=== PATIENT | male | born 1940 | race Caucasian/White ===

== ENCOUNTER 2023-03-25 13:57 | Outpatient (RCR) | payer MEDICARE, SELFPAY | END 2023-03-25 23:59 | disposition home or self-care (01) | LOC: RPT 13:57 | PROVIDERS: ATTENDING PHYSICIAN Orthopaedic Surgery; FAMILY PHYSICIAN Internal Medicine | DX: Z47.1 Aftercare following joint replacement surgery (principal); M25.562 Pain in left knee; Z73.6 Limitation of activities due to disability; R26.89 Other abnormalities of gait and mobility; Z96.652 Presence of left artificial knee joint | CPT/HCPCS: 97010; 97110; 97116; 97140; 97162; 97164; 97530 ==

== ENCOUNTER → 2023-03-28 09:00 | Outpatient (REF) | payer MEDICARE, SELFPAY ==
[2023-03-28 10:29] LABS: Blood Urea Nitrogen 30 mg/dl (9-20); Calcium 9.6 mg/dl (8.4-10.2); Carbon Dioxide 24 mmol/L (22-30); Chloride 95 mmol/L (98-107); Glucose 105 mg/dl (70-99); Sodium 127 mmol/L (135-145); eGFR 55.19
== END ==
LOC: REG 09:00
PROVIDERS: ATTENDING PHYSICIAN Nurse Practitioner Family
DX: Z09 Encounter for follow-up examination after completed treatment for conditions other than malignant neoplasm (principal)
CPT/HCPCS: 36415; 80048

== ENCOUNTER 2023-04-22 13:55 | Outpatient (RCR) | payer MEDICARE, SELFPAY | END 2023-04-22 23:59 | disposition home or self-care (01) | LOC: RPT 13:55 | PROVIDERS: ATTENDING PHYSICIAN Orthopaedic Surgery; FAMILY PHYSICIAN Internal Medicine | DX: Z47.1 Aftercare following joint replacement surgery (principal); M25.562 Pain in left knee; Z73.6 Limitation of activities due to disability; R26.89 Other abnormalities of gait and mobility; Z96.652 Presence of left artificial knee joint | CPT/HCPCS: 97010; 97110; 97116; 97530 ==

== ENCOUNTER → 2023-05-09 14:59 | Outpatient (REF) | payer MEDICARE, SELFPAY | LOC: DHCBC HW 14:59 | PROVIDERS: ATTENDING PHYSICIAN Nurse Practitioner; FAMILY PHYSICIAN Internal Medicine | DX: R06.09 Other forms of dyspnea (principal); I25.10 Atherosclerotic heart disease of native coronary artery without angina pectoris; I35.0 Nonrheumatic aortic (valve) stenosis | CPT/HCPCS: 93306 ==

== ENCOUNTER → 2023-05-12 08:25 | Outpatient (REF) | payer MEDICARE, SELFPAY ==
[2023-05-12 10:26] LABS: % Basophils 0.6 % (0-2); % Eosinophils 1.8 % (0-6); % Immature Granulocytes 0.3 % (0-0.5); % Lymphocytes 28.5 % (20.5-51.1); % Neutrophils 59.8 % (42.2-75.2); Absolute Eosinophils 0.1 10^3/uL (0-0.7); Absolute Lymphocytes 1.9 10^3/uL (1.2-3.4); Absolute Monocytes 0.6 10^3/uL (0.1-0.6); Absolute Neutrophils 3.9 10^3/uL (1.4-6.5); Hematocrit 25.5 % (39.0-52.0); Hemoglobin 8.1 g/dL (13.0-18.0); Mean Corp Hgb Conc. 31.8 g/dL (33.0-37.0); Mean Corpuscular Hgb 31.4 pg (27.0-31.0); Mean Corpuscular Volume 98.8 fL (80.0-94.0); Mean Platelet Volume 9.7 fL (7.4-10.4); Nucleated Red Blood Cells % 0 % (-); Platelet Count 210 10^3/uL (130-400); Red Blood Cell Count 2.58 10^6/uL (4.70-6.10); Red Cell Dist. Width 14.2 % (11.5-14.5); White Blood Cell Count 6.5 10^3/uL (4.8-10.8)
[2023-05-12 11:10] LABS: ALT (SGPT) 30 U/L (0-50); AST (SGOT) 30 U/L (17-59); Albumin 3.5 g/dl (3.5-5.0); Alkaline Phosphatase 50 U/L (38-126); Blood Urea Nitrogen 30 mg/dl (9-20); Calcium 8.8 mg/dl (8.4-10.2); Carbon Dioxide 22 mmol/L (22-30); Chloride 105 mmol/L (98-107); Glucose 129 mg/dl (70-99); Potassium 4.8 mmol/L (3.5-5.1); Sodium 132 mmol/L (135-145); Total Bilirubin 0.8 mg/dl (0.2-1.3); Total Protein 5.7 g/dl (6.3-8.2); eGFR 50.49
[2023-05-12 11:12] LABS: NT-proBNP 2770 pg/ml
== END ==
LOC: REG 08:25
PROVIDERS: ATTENDING PHYSICIAN Nurse Practitioner; FAMILY PHYSICIAN Internal Medicine; REFERRING PHYSICIAN Internal Medicine Endocrinology, Diabetes & Metabolism
DX: R06.09 Other forms of dyspnea (principal); I25.10 Atherosclerotic heart disease of native coronary artery without angina pectoris; I35.0 Nonrheumatic aortic (valve) stenosis
CPT/HCPCS: 36415; 80053; 83880; 85025

== ENCOUNTER → 2023-05-21 09:12 | Outpatient (REF) | payer MEDICARE, SELFPAY ==
[2023-05-21 09:58] LABS: % Basophils 0.5 % (0-2); % Immature Granulocytes 0.2 % (0-0.5); % Lymphocytes 32.4 % (20.5-51.1); % Monocytes 7.4 % (1.7-9.3); % Neutrophils 57.5 % (42.2-75.2); Absolute Eosinophils 0.1 10^3/uL (0-0.7); Absolute Lymphocytes 2.1 10^3/uL (1.2-3.4); Absolute Monocytes 0.5 10^3/uL (0.1-0.6); Absolute Neutrophils 3.8 10^3/uL (1.4-6.5); Hematocrit 26.9 % (39.0-52.0); Hemoglobin 8.6 g/dL (13.0-18.0); Mean Corpuscular Hgb 31.9 pg (27.0-31.0); Mean Corpuscular Volume 99.6 fL (80.0-94.0); Mean Platelet Volume 9.6 fL (7.4-10.4); Nucleated Red Blood Cells % 0 % (-); Platelet Count 190 10^3/uL (130-400); Reticulocyte Count 1.3 % (0.4-2.8); White Blood Cell Count 6.5 10^3/uL (4.8-10.8)
[2023-05-21 10:29] LABS: ALT (SGPT) 28 U/L (0-50); AST (SGOT) 30 U/L (17-59); Albumin 3.9 g/dl (3.5-5.0); Alkaline Phosphatase 49 U/L (38-126); Blood Urea Nitrogen 34 mg/dl (9-20); Calcium 9.2 mg/dl (8.4-10.2); Carbon Dioxide 22 mmol/L (22-30); Chloride 105 mmol/L (98-107); Glucose 99 mg/dl (70-99); HDL Cholesterol 47 mg/dl; Iron 69 ug/dl (49-181); LDH 175 U/L (120-246); LDL Cholesterol, Calculated 32 mg/dl; Potassium 5.4 mmol/L (3.5-5.1); Sodium 131 mmol/L (135-145); Total Cholesterol 92 mg/dl (50-199); Triglyceride 68 mg/dl (10-149); Very Low Density Lipoprotein 13 mg/dl (0-30); eGFR 46.48
[2023-05-21 10:40] LABS: Percent Saturation 20 % (20-50); Total Iron Binding Capacity 330 ug/dl (261-462)
[2023-05-21 10:55] LABS: Microalbumin, Random Urine 29.8 mg/dl (0.6-1.7); Microalbumin/creatinine Ratio 376.3 mg/g
[2023-05-21 11:33] LABS: Folate > 20.0 ng/ml (2.76-20); Vitamin B12 819 pg/ml (239-931)
[2023-05-21 12:16] LABS: Glycohemoglobin (HgbA1c) 6.3 % (4.0-5.6)
[2023-05-24 08:35] LABS: Albumin 3.72 g/dL (3.75-5.01); Alpha 1 Globulin 0.33 g/dL (0.19-0.46); Alpha 2 Globulin 0.77 g/dL (0.48-1.05); SPEP IFE Reflex IFE Done; Total Protein-Electrophoresis 6.1 g/dL (6.3-8.2)
[2023-05-24 08:37] LABS: IgA 115 mg/dL (68-408); IgG 594 mg/dL (768-1632); IgM 49 mg/dL (35-263)
== END ==
LOC: REG 09:12
PROVIDERS: ATTENDING PHYSICIAN Internal Medicine; FAMILY PHYSICIAN Internal Medicine Endocrinology, Diabetes & Metabolism; OTHER PHYSICIAN Internal Medicine Hematology & Oncology; REFERRING PHYSICIAN Internal Medicine Cardiovascular Disease
DX: D64.9 Anemia, unspecified (principal); E11.21 Type 2 diabetes mellitus with diabetic nephropathy; E78.2 Mixed hyperlipidemia
CPT/HCPCS: 36415; 80053; 80061; 82043; 82570; 82607; 82728; 82746; 82784; 83036; 83540; 83550; 83615; 84155; 84165; 85025; 85045; 86334

== ENCOUNTER 2023-05-21 14:19 | Outpatient (RCR) | payer MEDICARE, SELFPAY | END 2023-05-21 23:59 | disposition home or self-care (01) | LOC: RPT 14:19 | PROVIDERS: ATTENDING PHYSICIAN Orthopaedic Surgery; FAMILY PHYSICIAN Internal Medicine | DX: Z47.1 Aftercare following joint replacement surgery (principal); M25.562 Pain in left knee; Z73.6 Limitation of activities due to disability; Z96.652 Presence of left artificial knee joint | CPT/HCPCS: 97010; 97110; 97530 ==

== ENCOUNTER 2023-05-30 13:52 | Outpatient (RCR) | payer MEDICARE, SELFPAY | END 2023-06-02 07:32 | disposition home or self-care (01) | LOC: RPT 13:52 | PROVIDERS: ATTENDING PHYSICIAN Orthopaedic Surgery; FAMILY PHYSICIAN Internal Medicine | DX: Z47.1 Aftercare following joint replacement surgery (principal); M25.562 Pain in left knee; Z73.6 Limitation of activities due to disability; R26.89 Other abnormalities of gait and mobility; Z96.652 Presence of left artificial knee joint | CPT/HCPCS: 97110; 97530 ==

== ENCOUNTER → 2023-06-11 09:40 | Outpatient (REF) | payer MEDICARE, SELFPAY ==
[2023-06-11 11:13] LABS: Blood Urea Nitrogen 38 mg/dl (9-20); Calcium 9.7 mg/dl (8.4-10.2); Carbon Dioxide 22 mmol/L (22-30); Chloride 107 mmol/L (98-107); Glucose 92 mg/dl (70-99); Potassium 5.2 mmol/L (3.5-5.1); Sodium 134 mmol/L (135-145); eGFR 46.48
== END ==
LOC: REG 09:40
PROVIDERS: ATTENDING PHYSICIAN Nurse Practitioner Gerontology; FAMILY PHYSICIAN Internal Medicine
DX: R06.09 Other forms of dyspnea (principal)
CPT/HCPCS: 36415; 80048

== ENCOUNTER 2023-06-19 12:56 | Outpatient (RCR) | payer MEDICARE, SELFPAY ==
[2023-06-13] MEDS: VENOFER 110 MG IV (14:10)
[2023-06-13 14:12] VITALS: BP 118/43
[2023-06-13 15:25] VITALS: BP 117/58
[2023-06-19] MEDS: VENOFER 110 MG IV (13:29)
[2023-06-19 13:37] VITALS: BP 119/56
[2023-06-19 14:30] VITALS: BP 126/58
== END 2023-06-23 15:58 | disposition home or self-care (01) ==
LOC: OID 12:56
PROVIDERS: ATTENDING PHYSICIAN Internal Medicine
DX: N18.31 Chronic kidney disease, stage 3a (principal); D63.1 Anemia in chronic kidney disease; E11.21 Type 2 diabetes mellitus with diabetic nephropathy
CPT/HCPCS: 96365; J1756

== ENCOUNTER → 2023-06-25 09:40 | Outpatient (REF) | payer MEDICARE, SELFPAY ==
[2023-06-25 11:05] LABS: Glycohemoglobin (HgbA1c) 6.5 % (4.0-5.6)
[2023-06-25 13:37] LABS: ALT (SGPT) 43 U/L (0-50); AST (SGOT) 39 U/L (17-59); Alkaline Phosphatase 53 U/L (38-126); Blood Urea Nitrogen 27 mg/dl (9-20); Calcium 9.3 mg/dl (8.4-10.2); Carbon Dioxide 23 mmol/L (22-30); Chloride 104 mmol/L (98-107); Glucose 88 mg/dl (70-99); Potassium 5.2 mmol/L (3.5-5.1); Sodium 132 mmol/L (135-145); Total Bilirubin 0.9 mg/dl (0.2-1.3); Total Protein 6.2 g/dl (6.3-8.2); eGFR 43.02
== END ==
LOC: REG 09:40
PROVIDERS: ATTENDING PHYSICIAN Internal Medicine Endocrinology, Diabetes & Metabolism; FAMILY PHYSICIAN Internal Medicine
DX: E11.9 Type 2 diabetes mellitus without complications (principal)
CPT/HCPCS: 36415; 80053; 83036

== ENCOUNTER 2023-07-10 12:54 | Outpatient (RCR) | payer MEDICARE, SELFPAY ==
[2023-06-26 13:50] VITALS: BP 122/53
[2023-06-26] MEDS: VENOFER 110 MG IV (14:20)
[2023-06-26 15:40] VITALS: BP 117/49
[2023-07-03] MEDS: VENOFER 110 MG IV (13:29)
[2023-07-03 13:33] VITALS: BP 124/56
[2023-07-03 14:40] VITALS: BP 132/52
[2023-07-10 13:21] VITALS: BP 109/52
[2023-07-10] MEDS: VENOFER 110 MG IV (13:29)
[2023-07-10 14:42] VITALS: BP 132/59
== END 2023-07-11 10:14 | disposition home or self-care (01) ==
LOC: OID 12:54
PROVIDERS: ATTENDING PHYSICIAN Internal Medicine
DX: N18.31 Chronic kidney disease, stage 3a (principal); D63.1 Anemia in chronic kidney disease; E11.21 Type 2 diabetes mellitus with diabetic nephropathy
CPT/HCPCS: 96365; J1756

== ENCOUNTER → 2023-07-28 15:31 | Outpatient (REF) | payer MEDICARE, SELFPAY ==
[2023-07-28 16:18] LABS: % Basophils 0.5 % (0-2); % Eosinophils 2.3 % (0-6); % Immature Granulocytes 0.4 % (0-0.5); % Lymphocytes 31.6 % (20.5-51.1); % Neutrophils 56.2 % (42.2-75.2); Absolute Eosinophils 0.2 10^3/uL (0-0.7); Absolute Lymphocytes 2.4 10^3/uL (1.2-3.4); Absolute Monocytes 0.7 10^3/uL (0.1-0.6); Absolute Neutrophils 4.2 10^3/uL (1.4-6.5); Hematocrit 27.8 % (39.0-52.0); Hemoglobin 9.1 g/dL (13.0-18.0); Mean Corp Hgb Conc. 32.7 g/dL (33.0-37.0); Mean Corpuscular Hgb 32.5 pg (27.0-31.0); Mean Corpuscular Volume 99.3 fL (80.0-94.0); Mean Platelet Volume 9.5 fL (7.4-10.4); Nucleated Red Blood Cells % 0 % (-); Platelet Count 180 10^3/uL (130-400); Red Cell Dist. Width 13.6 % (11.5-14.5); White Blood Cell Count 7.4 10^3/uL (4.8-10.8)
[2023-07-28 16:43] LABS: Blood Urea Nitrogen 43 mg/dl (9-20); Calcium 9.2 mg/dl (8.4-10.2); Carbon Dioxide 23 mmol/L (22-30); Chloride 104 mmol/L (98-107); Glucose 109 mg/dl (70-99); Phosphorus 4.8 mg/dl (2.5-4.5); Potassium 4.9 mmol/L (3.5-5.1); Sodium 137 mmol/L (135-145); eGFR 39.75
== END ==
LOC: REG 15:31
PROVIDERS: ATTENDING PHYSICIAN Internal Medicine Cardiovascular Disease; FAMILY PHYSICIAN Internal Medicine; OTHER PHYSICIAN Specialist; REFERRING PHYSICIAN Internal Medicine Endocrinology, Diabetes & Metabolism
DX: D64.9 Anemia, unspecified (principal); I50.30 Unspecified diastolic (congestive) heart failure
CPT/HCPCS: 36415; 80069; 85025

== ENCOUNTER → 2023-08-26 11:35 | Outpatient (REF) | payer MEDICARE, SELFPAY ==
[2023-08-26 14:15] LABS: Albumin 4.1 g/dl (3.5-5.0); Blood Urea Nitrogen 43 mg/dl (9-20); Calcium 9.3 mg/dl (8.4-10.2); Carbon Dioxide 25 mmol/L (22-30); Chloride 102 mmol/L (98-107); Glucose 93 mg/dl (70-99); Phosphorus 4.9 mg/dl (2.5-4.5); Potassium 5.3 mmol/L (3.5-5.1); Sodium 134 mmol/L (135-145); eGFR 34.79
== END ==
LOC: REG 11:35
PROVIDERS: ATTENDING PHYSICIAN Internal Medicine Cardiovascular Disease; FAMILY PHYSICIAN Internal Medicine; OTHER PHYSICIAN Specialist; REFERRING PHYSICIAN Nurse Practitioner Gerontology
DX: I50.32 Chronic diastolic (congestive) heart failure (principal); I50.30 Unspecified diastolic (congestive) heart failure
CPT/HCPCS: 36415; 80069

== ENCOUNTER → 2024-01-02 10:36 | Outpatient (REF) | payer MEDICARE, SELFPAY ==
[2024-01-02 12:38] LABS: Glycohemoglobin (HgbA1c) 6.1 % (4.0-5.6)
[2024-01-02 12:46] LABS: ALT (SGPT) 33 U/L (0-50); AST (SGOT) 33 U/L (17-59); Albumin 3.8 g/dl (3.5-5.0); Alkaline Phosphatase 39 U/L (38-126); Blood Urea Nitrogen 36 mg/dl (9-20); Calcium 9.7 mg/dl (8.4-10.2); Carbon Dioxide 24 mmol/L (22-30); Chloride 106 mmol/L (98-107); Glucose 104 mg/dl (70-99); HDL Cholesterol 44 mg/dl; Iron 101 ug/dl (49-181); LDL Cholesterol, Calculated 44 mg/dl; Phosphorus 4.4 mg/dl (2.5-4.5); Potassium 5.3 mmol/L (3.5-5.1); Sodium 140 mmol/L (135-145); Total Cholesterol 107 mg/dl (50-199); Triglyceride 96 mg/dl (10-149); Very Low Density Lipoprotein 19 mg/dl (0-30); eGFR 42.75
[2024-01-02 12:48] LABS: % Basophils 0.3 % (0-2); % Immature Granulocytes 0.3 % (0-0.5); % Lymphocytes 31.4 % (20.5-51.1); % Monocytes 8.2 % (1.7-9.3); % Neutrophils 57.8 % (42.2-75.2); Absolute Eosinophils 0.1 10^3/uL (0-0.7); Absolute Lymphocytes 1.9 10^3/uL (1.2-3.4); Absolute Monocytes 0.5 10^3/uL (0.1-0.6); Absolute Neutrophils 3.4 10^3/uL (1.4-6.5); Hematocrit 28.5 % (39.0-52.0); Hemoglobin 9.6 g/dL (13.0-18.0); Mean Corp Hgb Conc. 33.7 g/dL (33.0-37.0); Mean Corpuscular Hgb 34.2 pg (27.0-31.0); Mean Corpuscular Volume 101.4 fL (80.0-94.0); Mean Platelet Volume 9.4 fL (7.4-10.4); Nucleated Red Blood Cells % 0 % (-); Platelet Count 178 10^3/uL (130-400); Red Blood Cell Count 2.81 10^6/uL (4.70-6.10); Red Cell Dist. Width 12.2 % (11.5-14.5)
[2024-01-02 12:57] LABS: Percent Saturation 34 % (20-50); Total Iron Binding Capacity 290 ug/dl (261-462)
[2024-01-02 13:57] LABS: Microalbumin, Random Urine 8.3 mg/dl (0.6-1.7); Microalbumin/creatinine Ratio 147.4 mg/g
== END ==
LOC: REG 10:36
PROVIDERS: ATTENDING PHYSICIAN Internal Medicine Cardiovascular Disease; FAMILY PHYSICIAN Internal Medicine; OTHER PHYSICIAN Internal Medicine Endocrinology, Diabetes & Metabolism; OTHER PHYSICIAN Specialist
DX: E87.5 Hyperkalemia (principal); E11.9 Type 2 diabetes mellitus without complications; E11.21 Type 2 diabetes mellitus with diabetic nephropathy; I11.0 Hypertensive heart disease with heart failure; E78.2 Mixed hyperlipidemia; D63.1 Anemia in chronic kidney disease
CPT/HCPCS: 36415; 80053; 80061; 82043; 82570; 82728; 83036; 83540; 83550; 84100; 85025

== ENCOUNTER 2024-03-10 06:17 | Day surgery (SDC) | payer MEDICARE, SELFPAY ==
[2024-03-10 08:02] LABS: Glucose - Point of Care 143 mg/dl (70-99)
== END 2024-03-10 09:54 | disposition home or self-care (01) ==
LOC: GI 06:17
PROVIDERS: ATTENDING PHYSICIAN Internal Medicine Gastroenterology; FAMILY PHYSICIAN Internal Medicine
DX: D50.9 Iron deficiency anemia, unspecified (principal); K64.8 Other hemorrhoids; K57.30 Diverticulosis of large intestine without perforation or abscess without bleeding; D12.2 Benign neoplasm of ascending colon; D12.3 Benign neoplasm of transverse colon; K22.89 Other specified disease of esophagus; R12 Heartburn; K31.89 Other diseases of stomach and duodenum; Z86.0100 Personal history of colon polyps, unspecified
CPT/HCPCS: 45380; 43239; 88305; 82962; 88342

== ENCOUNTER → 2024-03-22 09:00 | Outpatient (REF) | payer MEDICARE, SELFPAY ==
[2024-03-22 09:41] LABS: % Basophils 0.4 % (0-2); % Eosinophils 1.6 % (0-6); % Immature Granulocytes 0.3 % (0-0.5); % Lymphocytes 29.8 % (20.5-51.1); % Monocytes 6.9 % (1.7-9.3); Absolute Eosinophils 0.1 10^3/uL (0-0.7); Absolute Lymphocytes 2.3 10^3/uL (1.2-3.4); Absolute Monocytes 0.5 10^3/uL (0.1-0.6); Absolute Neutrophils 4.6 10^3/uL (1.4-6.5); Hemoglobin 9.8 g/dL (13.0-18.0); Mean Corp Hgb Conc. 33.8 g/dL (33.0-37.0); Mean Corpuscular Hgb 33.6 pg (27.0-31.0); Mean Corpuscular Volume 99.3 fL (80.0-94.0); Mean Platelet Volume 9.1 fL (7.4-10.4); Nucleated Red Blood Cells % 0 % (-); Platelet Count 196 10^3/uL (130-400); Red Blood Cell Count 2.92 10^6/uL (4.70-6.10); Red Cell Dist. Width 12.2 % (11.5-14.5); Reticulocyte Count 1.4 % (0.4-2.8); White Blood Cell Count 7.6 10^3/uL (4.8-10.8)
[2024-03-22 09:57] LABS: Urine Albumin Trace (Neg - Trace); Urine Bilirubin Negative (Negative); Urine Character Clear (Clear); Urine Color Yellow; Urine Glucose 3+ (Negative); Urine Ketone Negative (Negative); Urine Leukocyte Negative (Negative); Urine Nitrite Negative (Negative); Urine Occult Blood Negative (Negative); Urine Specific Gravity 1.015 (<1.030); Urine Urobilinogen Negative (Neg - 1+)
[2024-03-22 10:25] LABS: ALT (SGPT) 36 U/L (0-50); AST (SGOT) 33 U/L (17-59); Albumin 4.1 g/dl (3.5-5.0); Alkaline Phosphatase 47 U/L (38-126); Blood Urea Nitrogen 44 mg/dl (9-20); Calcium 9.1 mg/dl (8.4-10.2); Carbon Dioxide 26 mmol/L (22-30); Chloride 102 mmol/L (98-107); Glucose 117 mg/dl (70-99); HDL Cholesterol 43 mg/dl; LDL Cholesterol, Calculated 51 mg/dl; Phosphorus 4.6 mg/dl (2.5-4.5); Potassium 5.2 mmol/L (3.5-5.1); Sodium 137 mmol/L (135-145); Total Bilirubin 0.7 mg/dl (0.2-1.3); Total Cholesterol 115 mg/dl (50-199); Total Protein 6.3 g/dl (6.3-8.2); Triglyceride 106 mg/dl (10-149); Very Low Density Lipoprotein 21 mg/dl (0-30); eGFR 32.71
[2024-03-22 10:30] LABS: Vitamin D, 25-OH*** 60.2 ng/mL (30-80)
[2024-03-22 10:41] LABS: Microalbumin, Random Urine 6.8 mg/dl (0.6-1.7); Microalbumin/creatinine Ratio 62.1 mg/g
[2024-03-22 10:44] LABS: TSH Reflex To Free T4 3.42 uIU/ml (0.47-4.68)
[2024-03-23 19:54] LABS: PSA Total <0.1 ng/mL (0.0-4.0)
== END ==
LOC: REG 09:00
PROVIDERS: ATTENDING PHYSICIAN Internal Medicine; OTHER PHYSICIAN Internal Medicine Cardiovascular Disease; OTHER PHYSICIAN Specialist; REFERRING PHYSICIAN Internal Medicine Endocrinology, Diabetes & Metabolism
DX: E78.2 Mixed hyperlipidemia (principal); I25.10 Atherosclerotic heart disease of native coronary artery without angina pectoris; I65.22 Occlusion and stenosis of left carotid artery; E66.01 Morbid (severe) obesity due to excess calories; I10 Essential (primary) hypertension; M17.11 Unilateral primary osteoarthritis, right knee; E11.21 Type 2 diabetes mellitus with diabetic nephropathy; E11.9 Type 2 diabetes mellitus without complications; E87.1 Hypo-osmolality and hyponatremia
CPT/HCPCS: 36415; 80053; 80061; 81003; 82043; 82306; 82570; 84100; 84153; 84154; 84443; 85025; 85045

== ENCOUNTER → 2024-05-07 08:42 | Outpatient (REF) | payer MEDICARE, SELFPAY ==
[2024-05-07 09:17] LABS: % Basophils 0.3 % (0-2); % Eosinophils 1.1 % (0-6); % Immature Granulocytes 0.3 % (0-0.5); % Lymphocytes 28.6 % (20.5-51.1); % Monocytes 8.2 % (1.7-9.3); % Neutrophils 61.5 % (42.2-75.2); Absolute Eosinophils 0.1 10^3/uL (0-0.7); Absolute Lymphocytes 2.1 10^3/uL (1.2-3.4); Absolute Monocytes 0.6 10^3/uL (0.1-0.6); Absolute Neutrophils 4.4 10^3/uL (1.4-6.5); Hematocrit 27.3 % (39.0-52.0); Hemoglobin 8.9 g/dL (13.0-18.0); Mean Corp Hgb Conc. 32.6 g/dL (33.0-37.0); Mean Corpuscular Hgb 32.4 pg (27.0-31.0); Mean Corpuscular Volume 99.3 fL (80.0-94.0); Mean Platelet Volume 9.3 fL (7.4-10.4); Nucleated Red Blood Cells % 0 % (-); Platelet Count 161 10^3/uL (130-400); Red Blood Cell Count 2.75 10^6/uL (4.70-6.10); Red Cell Dist. Width 12.4 % (11.5-14.5); White Blood Cell Count 7.2 10^3/uL (4.8-10.8)
[2024-05-07 09:57] LABS: ALT (SGPT) 36 U/L (0-50); AST (SGOT) 33 U/L (17-59); Albumin 3.8 g/dl (3.5-5.0); Alkaline Phosphatase 56 U/L (38-126); Blood Urea Nitrogen 46 mg/dl (9-20); Calcium 9.4 mg/dl (8.4-10.2); Carbon Dioxide 23 mmol/L (22-30); Chloride 104 mmol/L (98-107); Glucose 115 mg/dl (70-99); HDL Cholesterol 41 mg/dl; Iron 64 ug/dl (49-181); LDL Cholesterol, Calculated 41 mg/dl; Potassium 4.9 mmol/L (3.5-5.1); Sodium 135 mmol/L (135-145); Total Bilirubin 1.1 mg/dl (0.2-1.3); Total Cholesterol 106 mg/dl (50-199); Triglyceride 120 mg/dl (10-149); Very Low Density Lipoprotein 24 mg/dl (0-30); eGFR 34.79
[2024-05-07 10:06] LABS: Percent Saturation 22 % (20-50); Total Iron Binding Capacity 287 ug/dl (261-462)
[2024-05-07 10:23] LABS: Glycohemoglobin (HgbA1c) 6.4 % (4.0-5.6)
[2024-05-07 10:25] LABS: Ferritin 91.5 ng/ml (17.9-464.0)
[2024-05-07 10:37] LABS: Microalbumin, Random Urine 12.2 mg/dl (0.6-1.7); Microalbumin/creatinine Ratio 144.4 mg/g
== END ==
LOC: REG 08:42
PROVIDERS: ATTENDING PHYSICIAN Internal Medicine
DX: E11.21 Type 2 diabetes mellitus with diabetic nephropathy (principal); I10 Essential (primary) hypertension; E78.2 Mixed hyperlipidemia
CPT/HCPCS: 36415; 80053; 80061; 82043; 82570; 82728; 83036; 83540; 83550; 85025

== ENCOUNTER → 2024-06-28 09:45 | Outpatient (REF) | payer MEDICARE, SELFPAY ==
[2024-06-28 10:59] LABS: ALT (SGPT) 35 U/L (0-50); AST (SGOT) 29 U/L (17-59); Alkaline Phosphatase 41 U/L (38-126); Blood Urea Nitrogen 47 mg/dl (9-20); Calcium 9.2 mg/dl (8.4-10.2); Carbon Dioxide 23 mmol/L (22-30); Chloride 107 mmol/L (98-107); Glucose 122 mg/dl (70-99); Potassium 5.3 mmol/L (3.5-5.1); Sodium 139 mmol/L (135-145); Total Protein 6.1 g/dl (6.3-8.2); eGFR 30.85
[2024-06-28 11:20] LABS: Glycohemoglobin (HgbA1c) 6.5 % (4.0-5.6)
== END ==
LOC: REG 09:45
PROVIDERS: ATTENDING PHYSICIAN Internal Medicine Endocrinology, Diabetes & Metabolism; FAMILY PHYSICIAN Internal Medicine
DX: E11.9 Type 2 diabetes mellitus without complications (principal)
CPT/HCPCS: 36415; 80053; 83036

== ENCOUNTER → 2024-06-30 10:32 | Outpatient (REF) | payer MEDICARE, SELFPAY | LOC: RAD 10:32 | PROVIDERS: ATTENDING PHYSICIAN Internal Medicine | DX: R06.09 Other forms of dyspnea (principal) | CPT/HCPCS: 71046 ==

== ENCOUNTER → 2024-07-20 08:14 | Outpatient (REF) | payer MEDICARE, SELFPAY | LOC: PAVMRI 08:14 | PROVIDERS: ATTENDING PHYSICIAN Internal Medicine; REFERRING PHYSICIAN Internal Medicine Cardiovascular Disease | DX: R06.09 Other forms of dyspnea (principal) | CPT/HCPCS: 75561; 75565; A9585 ==

== ENCOUNTER → 2024-07-21 08:31 | Outpatient (REF) | payer MEDICARE, SELFPAY ==
[2024-07-21 09:44] LABS: % Basophils 0.4 % (0-2); % Eosinophils 2.2 % (0-6); % Immature Granulocytes 0.4 % (0-0.5); % Lymphocytes 27.5 % (20.5-51.1); % Monocytes 6.7 % (1.7-9.3); % Neutrophils 62.8 % (42.2-75.2); Absolute Eosinophils 0.2 10^3/uL (0-0.7); Absolute Lymphocytes 2.1 10^3/uL (1.2-3.4); Absolute Monocytes 0.5 10^3/uL (0.1-0.6); Absolute Neutrophils 4.8 10^3/uL (1.4-6.5); Hemoglobin 8.4 g/dL (13.0-18.0); Mean Corp Hgb Conc. 32.3 g/dL (33.0-37.0); Mean Corpuscular Hgb 32.6 pg (27.0-31.0); Mean Corpuscular Volume 100.8 fL (80.0-94.0); Mean Platelet Volume 9.7 fL (7.4-10.4); Nucleated Red Blood Cells % 0 % (-); Platelet Count 205 10^3/uL (130-400); Red Blood Cell Count 2.58 10^6/uL (4.70-6.10); Red Cell Dist. Width 12.8 % (11.5-14.5); White Blood Cell Count 7.6 10^3/uL (4.8-10.8)
[2024-07-21 10:21] LABS: Iron 54 ug/dl (49-181)
== END ==
LOC: REG 08:31
PROVIDERS: ATTENDING PHYSICIAN Internal Medicine Gastroenterology; FAMILY PHYSICIAN Internal Medicine; OTHER PHYSICIAN Internal Medicine Endocrinology, Diabetes & Metabolism; OTHER PHYSICIAN Specialist; REFERRING PHYSICIAN Internal Medicine Cardiovascular Disease
DX: D50.9 Iron deficiency anemia, unspecified (principal)
CPT/HCPCS: 36415; 83540; 85025

== ENCOUNTER 2024-07-26 09:22 | Day surgery (SDC) | payer MEDICARE, SELFPAY ==
[2024-07-26] VITALS (16 sets, daily range): BP systolic 93–132; BP diastolic 38–68; BMI 40.0
[2024-07-26 10:14] LABS: Glucose - Point of Care 125 mg/dl (70-99)
[2024-07-26] MEDS: LOW STRENGTH ASPIRIN 81 MG PO (10:21)
--- NOTE | 2024-07-26 11:57 | ITS.CL.CATH ---
[facility] - Catheterization
Cardiac Catheterization
Procedure Report:
CARDIAC CATHETERIZATION REPORT
Date of Procedure: 07/26/2024
Referring: Kim Mcarthur M.D.
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
PROCEDURE:
1. Right heart catheterization.
2. Coronary angiography.
3. Left heart catheterization.
A total of 15 minutes of procedural/moderate sedation was utilized. An independent medical representative was present to assist with and help manage the patient's level of consciousness and physiologic status.
ACCESS:
1. 6 [place] right rate artery using a modified Seldinger technique.
2. 6 [place] right antecubital vein using a modified Seldinger technique with a micropuncture kit under ultrasound guidance. Ultrasound image obtained.
CATHETERS:
1. 6 [place] balloon wedge.
2. 5 [place] JR.
3. 5 [place] JL 3.5.
HEMODYNAMIC DATA
Weight (kg): 113.9
AO (s/d/x, mmHg): 132/58/84
LV (s/x, mmHg): 155/27 (A wave to 37)
PCWP (a/v/x, mmHg): 34/52/30
PA (s/d/x, mmHg): 62/30/41
RV (s/x, mmHg): 62/20
RA (a/v/x, mmHg): 24/21/20
SVC SvO2 (%): 57.6
IVC SvO2 (%): Not obtained.
RA SvO2 (%): Not obtained.
RV SvO2 (%): Not obtained.
PA SvO2 (%): 58.5
SaO2 (%): 96.4
Hbg (g/dL): 7.8
ALIA
CO (L/min): 5.93
CI (L/min/m2): 2.69
Thermodilution
CO (L/min): Not performed.
CI (L/min/m2): Not performed.
TPG (mmHg): 11
PVR (Haas Units): 1.85
SVR (dynes*seconds*cm^-5): 863
AVO2 Diff (Volume %): 4.02
AV gradient (x, mmHg): 25.7
AV area (cm2): 1.41
MV gradient (x, mmHg): Not obtained.
MV area (cm2): Not obtained.
LEFT VENTRICULOGRAPHY: Not performed.
AORTOGRAPHY: Not performed.
CORONARY ANGIOGRAPHY
Dominance: Right.
Left Main: Normal size, trifurcating vessel. There is no coronary artery disease.
LAD: Normal size vessel with luminal irregularities in the proximal vessel with diffuse, densely calcified, nonintervenable disease in the distal and apical LAD.
Ramus: Medium to large size vessel supplying the majority of the anterolateral wall. There is a 70% lesion in the proximal vessel. There is an 80% lesion in the mid vessel, immediately proximal to a bifurcation point in the ramus.
Circumflex: Normal size, nondominant vessel that is essentially a posterolateral branch. There is an 80% lesion in the proximal/ostial vessel.
RCA: Small size, dominant vessel that is chronically totally occluded at its origin. The RPDA and distal vessel supplied by collaterals from the circumflex and from the septal perforators.
INTERVENTIONS
None.
Closure Device: Vascular band for the right radial artery, manual pressure for the right antecubital vein.
Radiation dose (mGy): 353.63
DAP (cm2.Gy): 24.0819
Fluoroscopy time (minutes): 6.0
CONCLUSIONS:
1. Right dominant circulation with chronic total occlusion of the ostial RCA, nonintervenable, diffuse disease in the distal/apical LAD, a 70% lesion in the proximal ramus followed by an 80% lesion in the mid ramus, immediately proximal to the
bifurcation point and an 80% lesion in the proximal/ostial circumflex.
2. Severely elevated filling pressures (LVEDP = 27 mmHg, PCWP = 30 mmHg at 113.9 kg) with evidence of diastolic dysfunction (A wave to 37 mmHg) and either severe mitral regurgitation or a noncompliant left atrium (V wave to 52 mmHg).
3. Mild/moderate postcapillary pulmonary hypertension (mean PA = 41 mmHg, PCWP = 30 mmHg, cardiac output = 5.93 L/min, PVR = 1.85 Wood units), WHO group 2.
4. Mild to moderate aortic valve stenosis on pullback (mean AV gradient = 25.7 mmHg, NICKIE = 1.41 cm�).
5. Significant anemia which may be affecting symptom burden.
RECOMMENDATIONS:
1. Expectant management after cardiac catheterization via right radial/antecubital approach.
2. Limited weight bearing on the right wrist for one week.
3. Check echocardiogram to evaluate myocardial structure and function, including mitral regurgitation. LV gram was deferred due to patient's renal dysfunction.
4. Accelerate diuresis with 40 mg of IV furosemide now, followed by an increased dose to 40 mg p.o. daily. BMP in 1 week.
5. Continue aggressive secondary prevention with high-dose, high potency statin. Goal LDL <55.
6. GDMT/OMT as hemodynamics will tolerate.
7. Plan for staged, high risk PCI of the circumflex and ramus intermedius barring surgical mitral valve disease at the time of echocardiogram. I will plan to bring the patient back for PCI in approximately 1 month to allow him to compensate from
his heart failure standpoint and fulfill his ordered testing.
Copy to: Kim Mcarthur M.D., Wyatt Boyd D.Jackie.
Abhi Sutton, DO, FACC, FACP
[2024-07-26 12:25] LABS: Glucose - Point of Care 127 mg/dl (70-99)
[2024-07-26] MEDS: LASIX 40 MG IV (13:27)
== END 2024-07-26 15:58 | disposition home or self-care (01) ==
LOC: CATH 09:22
PROVIDERS: ATTENDING PHYSICIAN Internal Medicine Cardiovascular Disease; FAMILY PHYSICIAN Internal Medicine; OTHER PHYSICIAN Internal Medicine Cardiovascular Disease
DX: I08.0 Rheumatic disorders of both mitral and aortic valves (principal); I25.10 Atherosclerotic heart disease of native coronary artery without angina pectoris; I42.9 Cardiomyopathy, unspecified; I11.0 Hypertensive heart disease with heart failure; I50.22 Chronic systolic (congestive) heart failure; I27.29 Other secondary pulmonary hypertension; D64.9 Anemia, unspecified; E78.2 Mixed hyperlipidemia; E11.9 Type 2 diabetes mellitus without complications; Z79.82 Long term (current) use of aspirin; Z79.4 Long term (current) use of insulin; Z79.899 Other long term (current) drug therapy; I25.2 Old myocardial infarction
CPT/HCPCS: 99152; 93306; 82962; 93460; C1894; Q9950; Q9967

== ENCOUNTER → 2024-07-31 10:41 | Outpatient (REF) | payer MEDICARE, SELFPAY ==
[2024-07-31 11:53] LABS: Hematocrit 23.8 % (39.0-52.0); Mean Corp Hgb Conc. 33.6 g/dL (33.0-37.0); Mean Corpuscular Hgb 32.9 pg (27.0-31.0); Mean Corpuscular Volume 97.9 fL (80.0-94.0); Mean Platelet Volume 9.9 fL (7.4-10.4); Platelet Count 177 10^3/uL (130-400); Red Blood Cell Count 2.43 10^6/uL (4.70-6.10); Red Cell Dist. Width 12.9 % (11.5-14.5); White Blood Cell Count 9.4 10^3/uL (4.8-10.8)
[2024-07-31 12:22] LABS: Blood Urea Nitrogen 53 mg/dl (9-20); Calcium 8.9 mg/dl (8.4-10.2); Carbon Dioxide 21 mmol/L (22-30); Chloride 108 mmol/L (98-107); Glucose 142 mg/dl (70-99); Iron 39 ug/dl (49-181); Potassium 5.3 mmol/L (3.5-5.1); Sodium 136 mmol/L (135-145); eGFR 24.87
[2024-07-31 12:31] LABS: Percent Saturation 13 % (20-50); Total Iron Binding Capacity 298 ug/dl (261-462)
[2024-07-31 13:29] LABS: Folate > 20.0 ng/ml (2.76-20); Vitamin B12 830 pg/ml (239-931)
== END ==
LOC: REG 10:41
PROVIDERS: ATTENDING PHYSICIAN Internal Medicine Gastroenterology; FAMILY PHYSICIAN Internal Medicine; REFERRING PHYSICIAN Internal Medicine Cardiovascular Disease
DX: I08.0 Rheumatic disorders of both mitral and aortic valves (principal); D50.9 Iron deficiency anemia, unspecified
CPT/HCPCS: 36415; 80048; 82607; 82728; 82746; 83540; 83550; 85027

== ENCOUNTER 2024-08-09 05:52 | Inpatient (IN) | payer MEDICARE, SELFPAY ==
[2024-08-09] VITALS (10 sets, daily range): BP systolic 102–135; BP diastolic 53–89; BMI 38.7; BMI 37.5
[2024-08-09 03:39] LABS: % Basophils 0.1 % (0-2); % Immature Granulocytes 0.6 % (0-0.5); % Lymphocytes 7.8 % (20.5-51.1); % Monocytes 6.4 % (1.7-9.3); % Neutrophils 85.1 % (42.2-75.2); Absolute Immature Granulocytes 0.1 10^3/uL (0-0.05); Absolute Monocytes 0.8 10^3/uL (0.1-0.6); Absolute Neutrophils 10.5 10^3/uL (1.4-6.5); Hematocrit 24.2 % (39.0-52.0); Hemoglobin 8.1 g/dL (13.0-18.0); Mean Corp Hgb Conc. 33.5 g/dL (33.0-37.0); Mean Corpuscular Hgb 32.7 pg (27.0-31.0); Mean Corpuscular Volume 97.6 fL (80.0-94.0); Mean Platelet Volume 9.8 fL (7.4-10.4); Nucleated Red Blood Cells % 0 % (-); Platelet Count 186 10^3/uL (130-400); Red Blood Cell Count 2.48 10^6/uL (4.70-6.10); Red Cell Dist. Width 13.1 % (11.5-14.5); White Blood Cell Count 12.4 10^3/uL (4.8-10.8)
[2024-08-09 04:01] LABS: ALT (SGPT) 65 U/L (0-50); AST (SGOT) 49 U/L (17-59); Albumin 3.9 g/dl (3.5-5.0); Alkaline Phosphatase 59 U/L (38-126); Blood Urea Nitrogen 63 mg/dl (9-20); Calcium 9.6 mg/dl (8.4-10.2); Carbon Dioxide 19 mmol/L (22-30); Chloride 106 mmol/L (98-107); Estimated Creatinine Clearance 27 ml/min; Glucose 230 mg/dl (70-99); Potassium 5.4 mmol/L (3.5-5.1); Sodium 133 mmol/L (135-145); Total Bilirubin 1.3 mg/dl (0.2-1.3); Total Protein 6.2 g/dl (6.3-8.2); eGFR 23.73
[2024-08-09 04:11] LABS: NT-proBNP 13200 pg/ml
[2024-08-09] MEDS: DUONEB 3 ML INH ×2 (04:34→06:59)
--- NOTE | 2024-08-09 04:41 | ED.GENMED ---
History of Present Illness
General
Chief Complaint: Breathing Problem
Source: patient, family and ambulance crew
Exam Limitations: none
Time Seen by Provider: 08/09/24 03:42
Nursing documentation reviewed up to this point in time: agreed with
History of Present Illness
History of Present Illness:
Note:
CHIEF COMPLAINT(S)
Difficulty breathing.
HISTORY OF PRESENT ILLNESS
The patient is an 84-year-old male who presented with difficulty breathing. He reports that the symptoms are somewhat alleviated by oxygen and nebulizer treatments administered en route to the hospital. He states that the breathing issues began
approximately two to three months ago, initially as a mild inconvenience necessitating periodic stops during short walks or while taking out the trash. However, he noticed a significant worsening of symptoms yesterday. He denies a history of chronic
obstructive pulmonary disease but mentions that he is undergoing diagnosis for congestive heart failure. The patient also reports being somewhat constipated with a hard bowel movement yesterday. There is a notable change in his ability to speak in
full sentences, now reduced to one or two words.
He had a cardiovascular angiogram performed on July 26, which revealed issues requiring three stents to be placed on August 16. The patient has been off his diuretics in preparation for this upcoming surgery. It was observed that his skin appeared
slightly jaundiced, but he denies abdominal pain or tightness and notes recent cessation of diuretics.
ADDITIONAL HISTORY OBTAINED FROM SOURCES OTHER THAN THE PATIENT
According to a family member, the patient appeared to have worsened symptoms since yesterday, with increased shortness of breath and fatigue.
CHRONIC MEDICAL CONDITIONS SIGNIFICANTLY AFFECTING CARE
The patient is undergoing diagnosis for congestive heart failure and is scheduled for stent placement. He has diabetes, which he reports was well-controlled until recently after stopping metformin.
SOCIAL DETERMINANTS AFFECTING HEALTH
The patients family member reports improved sleep quality when the patient is hospitalized, indicating possible stress from caregiving responsibilities at home.
MEDICATIONS
The patients metformin was discontinued recently.
REVIEW OF SYSTEMS
- Respiratory: Difficulty breathing, exacerbated over a short period.
- Gastrointestinal: Recent constipation.
PHYSICAL EXAM
- General: Nursing notes reviewed and vital signs reviewed.
- Skin: Slight jaundice observed.
- Abdomen: No pain or abnormal tightness noted.
- Extremities: Mild swelling on the lower extremities noted.
PLAN
- Admit to the hospital for further monitoring and management.
- Initiate breathing treatments while awaiting laboratory results.
- Consider reinitiating diuretics, as the patient has been off them in preparation for upcoming surgery.
DIFFERENTIAL DIAGNOSIS
The Differential Diagnosis includes, in no particular order and is not limited to:
1. Congestive heart failure exacerbation
2. Chronic obstructive pulmonary disease
3. Acute respiratory infection
4. Pulmonary edema
5. Pulmonary embolism
6. Myocardial ischemia
7. Anemia
8. Pleural effusion
9. Asthma exacerbation
10. Anxiety-induced dyspnea
Disposition:
DIAGNOSIS
- Congestive heart failure exacerbation (ICD-10: I50.9)
- Acute kidney injury (ICD-10: N17.9)
- Anemia (ICD-10: D64.9)
- Hyponatremia (ICD-10: E87.1)
SUMMARY OF ENCOUNTER
An 84-year-old male presented to the emergency department with shortness of breath that began approximately a month ago and worsened significantly over the past week, with a further decline noted overnight. The patient lives at home and is not on
home oxygen. EMS noted his oxygen saturation to be between 85% and 89% on room air. He was administered a nebulizer treatment during transport, which resulted in some improvement. The patient denied experiencing chest pain or forced shortness of
breath.
DISPOSITION
The patient is to be admitted to the hospital service.
CONSIDERATION FOR ADMISSION
Admission was considered due to exacerbation of congestive heart failure, acute kidney injury, anemia, and hyponatremia.
ASSESSMENT
The patient is suspected to be experiencing a congestive heart failure exacerbation with accompanying acute kidney injury, anemia, and hyponatremia.
EMERGENCY TREATMENTS ADMINISTERED
The patient received a nebulizer treatment en route to the hospital, which led to some improvement in his symptoms.
MANAGEMENT OF THE PATIENTS CARE WAS DISCUSSED WITH
- Hospital service for admission and management of the diagnosed conditions.
MEDICAL DECISION MAKING
The patient presented with acute and chronic issues, including exacerbation of heart failure and new concerns of kidney injury and anemia. The differential diagnosis and assessment took into consideration the complexity and severity of his
presentation, necessitating admission for management of potential fluid overload and further diagnostic workup. Given his low oxygen saturation and response to nebulizer treatment, management required escalation to inpatient care for continued
monitoring and treatment adjustments.
Past History
Past History
ED Past Medical History: CAD, Cancer (Prostate treated with radium seed implant), HTN, Hypercholesterolemia, IDDM, [place] and Other (ASCVD)
ED Past Surgical History: Tonsilectomy and Other (Left carotid endarterectomy, hernia repair, colonoscopy November 2018)
Social History
Tobacco: Non-smoker
Alcohol: Occasional (rare)
Drug: None
Personal:
Living: with family
Employment: Retired
Family History
Family History: Diabetes, CAD and Cancer
Phy Exam
General Physical Exam
General Presentation: well appearing and no apparent distress
General Skin: warm and dry
General Habitus: normal
General Mental: alert
General Hydration: appears well hydrated
ENT Exam
ENT Exam: EOMI, pharynx normal, neck supple and normocephalic
Eye Exam
Eye Exam: PERRL, cornea clear and conjunctiva normal
Cardiovascular Exam
Cardiovascular Exam: regular rate/rhythm, no edema, no murmur and normal peripheral pulses
Pulmonary Exam
Pulmonary Exam: chest non tender and decreased breath sounds
Respiratory Effort: tachypnea
Gastrointestinal Exam
Gastrointestinal Exam: normal bowel sounds, non tender, soft, no organomegaly, no pulsatile mass and non distended
Neurological Exam
Neurological Exam: alert, oriented x3, no motor deficits and speech normal
Musculoskeletal Exam
Musculoskeletal Exam: full ROM and no edema
Skin Exam
Skin Exam: warm/dry and jaundice
Psychiatric Exam
Psychiatric Exam: normal mood/affect
Scores
Heart Failure Risk
Heart Failure Risk Score: Yes
History of Stroke or TIA: No
History of intubation for respiratory distress: No
Heart rate on ED arrival >/= 110: No
SaO2 <90% on arrival on room air: Yes
HR >/=110 during 3min walk test (or too ill to perform test): Yes
ECG has acute ischemic changes: No
Urea >/=12mmol/L (BUN 33.6mg/dL): Yes
Serum CO2>/=35mmol/L: No
Troponin I or T elevated to [place] Level (0.4mg/dL): Yes
NT-proBNP >/=5,000ng/L (5,000pg/ml): Yes
HF Risk Score: 7
Admission Status: VERY HIGH RISK 69.8% Consider admission to hospital
Course
Orders/Labs/Results
Orders:
Orders
08/09/24 03:11
Electrocardiogram (*1) Urgent
Reason for Study: Shortness of Breath
EKG- Treatment ONCE
08/09/24 03:26
Complete Blood Count/With Diff Urgent
Comprehensive Metabolic Panel Urgent
Pro-BNP [NT-proBNP] Urgent
Troponin I Urgent
Comment: ADD ON
08/09/24 04:02
Add On- LAB Urgent
Tests Added?: troponin
08/09/24 04:03
Ipratropium/Albuterol Sulfate [Duoneb] 3 ml INH R NOW ONE
CR Chest - 2 Views Urgent
Comment:
Reason For Exam: dysonea
08/09/24 04:42
Furosemide [Lasix] 40 mg IV NOW STA
Abnormal Lab Results
08/09/24
03:26
WBC 12.4 H 10^3/uL
(4.8-10.8)
RBC 2.48 L 10^6/uL
(4.70-6.10)
Hgb 8.1 L g/dL
(13.0-18.0)
Hct 24.2 L %
(39.0-52.0)
MCV 97.6 H fL
(80.0-94.0)
MCH 32.7 H pg
(27.0-31.0)
Abs Immat Gran (auto) 0.1 H 10^3/uL
(0-0.05)
Absolute Neuts (auto) 10.5 H 10^3/uL
(1.4-6.5)
Absolute Lymphs (auto) 1.0 L 10^3/uL
(1.2-3.4)
Absolute Monos (auto) 0.8 H 10^3/uL
(0.1-0.6)
Immature Gran % 0.6 H %
(0-0.5)
Neutrophils % 85.1 H %
(42.2-75.2)
Lymphocytes % 7.8 L %
(20.5-51.1)
Sodium 133 L mmol/L
(135-145)
Potassium 5.4 H mmol/L
(3.5-5.1)
Carbon Dioxide 19 L mmol/L
(22-30)
BUN 63 H mg/dl
(9-20)
Creatinine 2.6 H mg/dL
(0.7-1.3)
Glucose 230 H mg/dl
(70-99)
ALT 65 H U/L
(0-50)
Troponin I 4.000 H* ng/ml
Total Protein 6.2 L g/dl
(6.3-8.2)
08/09/24 03:26
08/09/24 03:26
Vital Signs
Initial and Last Documented VS:
Initial Vital Signs
Temp Pulse Resp BP Pulse Ox
98.1 F 75 26 130/67 86
08/09/24 03:08 08/09/24 03:08 08/09/24 03:08 08/09/24 03:08 08/09/24 03:08
Last Documented Vital Signs
Temp Pulse Resp BP Pulse Ox
98.1 F 73 21 130/67 95
08/09/24 03:08 08/09/24 03:30 08/09/24 03:30 08/09/24 03:08 08/09/24 03:35
*Pulse Oximetry
Patient hypoxic: yes (87% on room air)
*EKG
Interpretation: abnormal
Comparison EKG: changes noted
Heart Rate: 74
Rate: normal
Rhythm: sinus
[place]: left axis deviation
Interval: long QT
QRS Pattern: right bundle branch block
Ischemia: no ischemia
*Tooling Supervisor Interpretation
Rate: normal
Interpretation: normal
*Critical Care Note
Total Time (30-74mins, 75-104mins- exclusive of procedures): 51 (Critical care statement: A total of 51 minutes of critical care time was provided for this patient. This time is separate from time utilized to perform the aforementioned documented
procedures. Aggregate critical care time includes only time during which I was engaged in work directl)
ED Attending Note
-
Portions of this chart may have been created with voice recognition software.� Occasional wrong word or��sound alike� substitutions may have occurred due to the inherent limitations of voice recognition software.
Discharge Plan
Departure
Patient Disposition: Admit
Date of Disposition: 08/09/24
Time of Disposition: 04:42
Admit to: IVU
Presentation/result/management discussed w/ accepting MD/DO: Hospitalist
Condition: Good
Discharge Problem:
Acute exacerbation of CHF (congestive heart failure), Anemia, KELLY (acute kidney injury), Acute hyponatremia, Jaundice, Acute non-ST elevation myocardial infarction (NSTEMI)
Prescriptions:
No Action
carvedilol 12.5 MG tablet
25 mg PO BID
metformin 1,000 MG tablet
1,000 mg PO BID@0800,1700
rosuvastatin 40 MG tablet
40 mg PO QPM
losartan 50 MG tablet
50 mg PO DAILY
Rx Instructions:
on hold till surgery
insulin glargine [Lantus Solostar U-100 Insulin] 300 UNITS/3 ML insulin pen
16 units SC HS
cholecalciferol (vitamin D3) [Vitamin D3] 2,000 UNIT capsule
2,000 unit PO BID
cyanocobalamin (vitamin B-12) 1,000 MCG capsule
1,000 mcg PO DAILY
L.acidoph,paracasei,B.animalis 1 EACH capsule
1 ea PO DAILY
ferrous sulfate 325 mg (65 mg iron) Tablet
325 mg PO QPM
zinc 50 mg Capsule
50 mg PO DAILY
ezetimibe 10 mg Tablet
10 mg PO QPM
tadalafil 5 mg Tablet
5 mg PO HS
tadalafil [Cialis] 20 mg Tablet
20 mg PO DAILY PRN (Reason: ED)
multivitamin Tablet
1 tab PO DAILY
omega [id number]-fish oil [Fish Oil] 1,000 mg (120 mg-180 mg) Capsule
1 cap PO DAILY
docusate sodium [Colace] 100 mg capsule
100 mg PO BID PRN (Reason: stool softner)
aspirin 81 mg Tablet
81 mg PO QPM
dapagliflozin propanediol [Farxiga] 10 mg Tablet
10 mg PO DAILY
Rx Instructions:
on hold till surgery
acetaminophen 325 mg Capsule
650 mg PO QID PRN (Reason: pain)
furosemide [Lasix] 20 mg Tablet
40 mg PO DAILY Qty: 60 3RF
Rx Instructions:
on hold till surgery
Referrals:
Wyatt Boyd DO [Family Provider, Internal Medicine]
Interventions
Interventions:
*Risk Screen - Suicide Last Done: 08/09/24 03:15
*General Assessment Last Done: 08/09/24 03:15
*Neglect/Abuse Screening Last Done: 08/09/24 03:15
*ED- Fall Risk Assessment Last Done: 08/09/24 03:15
*ED COVID-19 Vaccine History Last Done: 08/09/24 03:15
ED- Cardiac Assessment Last Done: 08/09/24 03:35
ED- Pulmonary Assessment Last Done: 08/09/24 03:35
Discharge Date and Time
Print Language: UPPER SORBIAN
[2024-08-09] MEDS: LASIX 40 MG IV ×3 (04:57→15:11)
--- NOTE | 2024-08-09 05:42 | HPS.HSE ---
Family Physician
-
Family Physician: Wyatt Boyd
Chief Complaint
-
SOB
History of Present Illness
Patient is an 84y M with PMH significant for ASCVD, hypertension, DM-II and CKD who presents to ED complaining of SOB. Patient states that he has had symptoms for > 2 weeks of intermittent palpitations / racing heartbeat, dyspnea with minimal
activity / exertion and general fatigue. He denies any chest pain, pressure or heaviness. He was seen by his physicians and underwent cardiac cath on 07/26/24. This revealed multi-vessel disease and elevated filling pressures. Patient's Lasix was
briefly increased and he was scheduled for high-risk, staged PCI of the LCx and the ramus (08/16/24).
About one week ago, patient states that he was advised to stop his Lasix, Farxiga and losartan in preparation for his upcoming catheterization.
He states that his symptoms have progressed in that time. His weight has increased by about 4 lbs. He has noted audible wheezing and increased frequency and severity of dyspnea.
In this same week long time frame, patient went on vacation with family and admits to dietary indiscretion at that time.
He presented to the ED this evening with significant shortness of breath.
He has increased work of breathing and appears uncomfortable even with conversation.
Medical History
Past Medical History
Past Medical History: Reports Other
Additional Past Medical History:
ASCVD (CAD, Carotid Stenosis)
Hypertension
DM-II
CKD III
ROHINI on CPAP
Chronic Anemia
Prostate Cancer s/p Radiation Seeds
Obesity
Past Surgical History: Reports Other
Additional Past Surgical History:
T&A
Hernia Repair
Left CEA
Cataracts
Appendectomy
Left Arm ORIF
Left TKA
Social History
Tobacco: Non-smoker
Alcohol: None
Drug: None
Personal:
Living: With Family
Family History
Family History: Other (Father: Premature CAD (first [place] at 47yo) Mother: CVA, dementia)
Allergies / Home Medications
Allergies reflects when Allergies were last updated in [facility].
Home Medications with original date entered in [facility]
Allergy/Medication List:
Allergies
Allergy/AdvReac Type Severity Reaction Status Date / Time
poison go extract Allergy Unknown Verified 08/09/24 03:15
pollen extracts Allergy Itching Verified 08/09/24 03:15
Home Medications
carvedilol 12.5 mg tablet 25 mg PO BID Blood Pressure 07/23/17
cholecalciferol (vitamin D3) 50 mcg (2,000 unit) capsule (Vitamin D3) 2,000 unit PO BID Supplement 07/23/17
cyanocobalamin (vitamin B-12) 1,000 mcg capsule 1,000 mcg PO DAILY Supplement 07/23/17
insulin glargine 100 unit/mL (3 mL) subcutaneous pen (Lantus Solostar U-100 Insulin) 16 units SC HS Diabetes 07/23/17
losartan 50 mg tablet 50 mg PO DAILY Blood Pressure 07/23/17
metformin 1,000 mg tablet 1,000 mg PO BID@0800,1700 Diabetes 07/23/17
rosuvastatin 40 mg tablet 40 mg PO QPM High Cholesterol 07/23/17
L.acidoph,paracasei,B.animalis 10 billion cell capsule 1 ea PO DAILY Gastrointestinal Issue 03/27/19
ezetimibe 10 mg tablet 10 mg PO QPM High Cholesterol 02/14/23
ferrous sulfate 325 mg (65 mg iron) tablet 325 mg PO QPM Supplement 02/14/23
tadalafil 20 mg tablet (Cialis) 20 mg PO DAILY PRN ED 02/14/23
tadalafil 5 mg tablet 5 mg PO HS Urinary Issue 02/14/23
zinc 50 mg capsule 50 mg PO DAILY Supplement 02/14/23
docusate sodium 100 mg capsule (Colace) 100 mg PO BID PRN stool softner 03/12/23
multivitamin 1 tab PO DAILY Supplement 03/12/23
omega 7-sgj-yrb-fish oil 1,000 mg (120 mg-180 mg) capsule (Fish Oil) 1 cap PO DAILY Supplement 03/12/23
acetaminophen 325 mg capsule 650 mg PO QID PRN pain 07/26/24
aspirin 81 mg tablet 81 mg PO QPM 07/26/24
dapagliflozin propanediol 10 mg tablet (Farxiga) 10 mg PO DAILY 07/26/24
furosemide 20 mg tablet (Lasix) 40 mg (2 x 20 mg) PO DAILY #60 tabs 07/26/24
Review of Systems
-
History Source: Patient
A 12 point ROS was completed and negative except as noted: Yes
Constitutional: Reports Weight Gain, Fatigue and Chills; Denies Fever
EENT: Denies Sore Throat
Respiratory: Reports Cough, Trouble Breathing and Other (Wheezing); Denies Hemoptysis
Cardiac: Reports Palpitations; Denies Chest Pain or Syncope
Abdomen/GI: Denies Abdominal Pain, Nausea, Vomiting or Diarrhea
: Denies Dysuria, Frequency or Flank Pain
Musculoskeletal: Reports Edema; Denies Joint Pain
Neurological: Reports Weakness; Denies Dizzy or Headache
Psych: Denies Depression or Anxiety
Physical Exam
Vital Signs
Vital Signs
Temp Pulse Resp BP Pulse Ox
98.1 F 68 21 130/64 95
08/09/24 03:08 08/09/24 04:57 08/09/24 03:30 08/09/24 04:57 08/09/24 03:35
Physical Exam
General: Other (84y M in mild distress due to dyspnea.)
HEENT: Moist mucous membranes, PERRLA and Other (Thick neck, Pos JVD to the angle of the mandible.)
Respiratory: Other (Diffuse rales throughout. Pos scattered wheezes. No rhonchi.)
Cardiac: S1/S2, Regular Rhythm and Murmur (II/ EDUARDO)
GI: Soft, Non Tender, Non Distended and Normal Bowel Sounds
Musculoskeletal: No Clubbing, No Cyanosis and Other (1+ edema b/l LEs.)
Neuro: AO x 3
Laboratory Results
-
08/09/24 03:26
08/09/24 03:26
Laboratory Results
Total Bilirubin 1.3 mg/dl (0.2-1.3) 08/09/24 03:26
AST 49 U/L (17-59) 08/09/24 03:26
ALT 65 U/L (0-50) H 08/09/24 03:26
Alkaline Phosphatase 59 U/L (38-126) 08/09/24 03:26
Troponin I 4.000 ng/ml H* 08/09/24 03:26
Data Reviewed
-
Medical Tests (Nuc Med, Echo, EKG etc): Other (Cardiac Cath 07/26/24: CONCLUSIONS: 1. Right dominant circulation with chronic total occlusion of the ostial RCA, nonintervenable, diffuse disease in the distal/apical LAD, a 70% lesion in the proximal
ramus followed by an 80% lesion in the mid ramus, immediately proximal to the bifurcation point a)
Impression/Plan
-
A/P: Patient is an 84y M with PMH significant for ASCVD, HTN and DM-II who presents to ED complaining of palpitations, fatigue and SOB for the past 2+ weeks.
ACS / NSTEMI
ASCVD
- Admit to IVU for further evaluation and treatment.
- Initial troponin significantly elevated at 4 with known coronary occlusions as noted in cath report.
- IV heparin infusion for now. Continue daily ASA.
- Continue beta-sandie, statin, etc.
- Cardiology evaluation - patient was sched for high-risk PCI on 08/16/24.
- Follow troponin to peak.
- Monitor for any new / worsening symptoms.
Acute on Chronic HFrEF
Acute Hypoxemic Respiratory Failure secondary to the above
- ? secondary to ischemia or vice versa?
- Off of diuretic regimen x 1 week with weight gain, wheezing, dyspnea, etc.
- Initial SpO2 = 86% on room air with increased work of breathing, conversational dyspnea, etc.
- IV Lasix BID for now.
- Follow I/Os, daily weights, etc.
- Note elevated LVEDP / PCWP during prior cath from 07/26.
- Cardiology eval as noted above.
- Echo done 07/26 with LVEF = 30-35%.
- Ischemic evaluation / intervention as noted above.
KELLY on CKD III
- SCr = 2.6 compared to recent baseline of approximately 2.0.
- Likely pre-renal secondary to CHF.
- IV Lasix as noted above and follow for changes in renal function.
- Hold Farxiga, ARB, etc acutely (has been off of both x 1 week).
Benign Hypertension
- Lasix as noted above. Continue carvedilol. Other agents on hold acutely.
- Adjust regimen as needed during stay for adequate BP control.
DM-II
- Uncontrolled. Hold oral agents acutely.
- Continue Lantus at decreased dose while NPO.
- Follow glucose and cover with SSI as needed.
- Update A1C.
Anemia of Chronic Disease
- Stable. Hgb is at / near known baseline.
- Follow for changes with diuresis.
- MCV slightly elevated, but prior iron studies were c/w degree iron deficiency.
- Low threshold for transfusion with elevated troponin / CHF / etc.
ROHINI
- Stable. Continue PAP therapy.
Obesity due to excess calories
- Affects all aspects of care.
- Encourage healthy diet and activity as tolerated with goal of weight loss.
DVT Prophylaxis: On IV Heparin
Code Status: Full
[2024-08-09 07:17] LABS: Hemoglobin 7.9 g/dL (13.0-18.0); Mean Corp Hgb Conc. 32.9 g/dL (33.0-37.0); Mean Corpuscular Hgb 32.1 pg (27.0-31.0); Mean Corpuscular Volume 97.6 fL (80.0-94.0); Mean Platelet Volume 9.6 fL (7.4-10.4); Platelet Count 185 10^3/uL (130-400); Red Blood Cell Count 2.46 10^6/uL (4.70-6.10); White Blood Cell Count 11.5 10^3/uL (4.8-10.8)
[2024-08-09] MEDS: HEPARIN 25000 UNITS/250 ML IV (07:17)
[2024-08-09] MEDS: HEPARIN 4000 UNITS IV (07:17)
[2024-08-09 07:41] LABS: APTT 33.3 Sec (23.4-35.0)
--- NOTE | 2024-08-09 08:12 | CON.CAR ---
Addendum entered and electronically signed by Bonny Mcarthur MD 08/09/24 11:05:
I saw and examined the patient.
The [employer] C[employer]'s note was reviewed and I agree with the note.
Comment: 84 y/o male (patient of Dr. Mcarthur) with moderate , chronic anemia (iron deficient, has gotten IV iron in past), CAD with multivessel disease including RADIOLOGY CT TECHNOLOGIST RCA (plan for high risk PCI later this month), bifascicular block, DM2, CKD3,
PAD s/p left CEA, HTN, HLD, HFrEF, ICM EF 30-35%. Recent cath confirming multivessel CAD and elevated filling pressures with a plan to optimize volume status and then intervene on obstructive disease. However, as an outpatient, kidney function yasmany
and his diuretics and GDMT were stopped. With this, he gained weight, developed dyspnea on exertion and after being on vacation without strict dietary adherence had orthopnea and PND the day prior to arrival. No chest pain or pressure. On exam,
he is obese and body habitus limits volume evaluation however he has 2+ pitting edema bilaterally, regular rate and rhythm with normal S1-S2,2 out of 6 crescendo decrescendo murmur in the right upper sternal border, lungs had bibasilar rales.EKG
shows sinus rhythm with primary AV conduction delay and bifascicular block.Labs significant for hemoglobin 7.9 creatinine 2.6 up from 2.1 in June 2024, troponin 4 on arrival. Overall, presentation most significant with acute on chronic heart failure
with reduced ejection fraction in the setting of dietary noncompliance and holding his diuresis. Troponin is elevated, this seems most likely secondary to a type II TX in the setting of acute decompensated heart failure, but NSTEMI cannot be
completely ruled out. Anemia is stable but significant. Would recommend aggressive IV diuresis with optimization of volume status and GDMT. Will discuss with interventional cardiology to plan for intervention during this hospitalization if able.
Will check iron studies. Given the need for cardiac catheterization could consider nephrology involvement during this hospitalization.
Will follow.
Original Note:
Consultation
Consultation Request
Date/Time Consultation Requested: 08/09/24 0639
Date/Time Consultation Performed: 08/09/24 0800
Requesting Provider: Dr. Villa
Performing Provider: Kathryn LOJA for Dr. Mcarthur
Reason for Consultation: heart failure, CAD
Medical History
-
Chief Complaint: DUGGAN, palps, cough
History of Present Illness:
84 y/o male (patient of Dr. Mcarthur) with moderate , chronic anemia (iron deficient, has gotten IV iron in past), CAD with multivessel disease including RADIOLOGY CT TECHNOLOGIST RCA (plan for high risk PCI later this month), bifascicular block, DM2, CKD3, PAD s/p
left CEA, HTN, HLD, HFrEF, ICM EF 30-35%. He is here for SOB. There have been associated palpitations. It is noted with exertion and he has noted that over the past 2 weeks he has needed to take more rests and it takes anywhere from 3-10 minutes to
feel improved again. The past 2 nights, he had orthopnea, PND, and cough. Of note, he was on vacation last week and ate out 1-2 times per day, and also Lasix, losartan, and farxiga were held based on recent OP creatinine prior to planned high risk
PCI (08/16/24). His O2 sat was 85% on arrival and he is now on O2 by [place]. Troponin was 4 and trending down. EKG stable. He is on a heparin drip. He denies any CP. Denies any blood in urine or stool.
Past Medical History
Past Medical History: CAD, CHF, HTN, Hypercholesterolemia, NIDDM and Renal Failure (CKD)
Social History
Tobacco: Non-Smoker
Family History
Family History: Reviewed & Not Pertinent
Allergies / Home Medications
Allergy/AdvReac Type Severity Reaction Status Date / Time
poison go extract Allergy Unknown Verified 08/09/24 03:15
pollen extracts Allergy Itching Verified 08/09/24 03:15
�Medication �Instructions �Recorded �Confirmed �Type
carvedilol 12.5 mg tablet 25 mg PO BID Blood Pressure 07/23/17 08/09/24 History
cholecalciferol (vitamin D3) 50 2,000 unit PO BID Supplement 07/23/17 08/09/24 History
mcg (2,000 unit) capsule (Vitamin
D3)
cyanocobalamin (vitamin B-12) 1,000 mcg PO DAILY Supplement 07/23/17 08/09/24 History
1,000 mcg capsule
insulin glargine 100 unit/mL (3 16 units SC HS Diabetes 07/23/17 08/09/24 History
mL) subcutaneous pen (Lantus
Solostar U-100 Insulin)
losartan 50 mg tablet 50 mg PO DAILY Blood Pressure 07/23/17 08/09/24 History
metformin 1,000 mg tablet 1,000 mg PO BID@0800,1700 Diabetes 07/23/17 08/09/24 History
rosuvastatin 40 mg tablet 40 mg PO QPM High Cholesterol 07/23/17 08/09/24 History
L.acidoph,paracasei,B.animalis 10 1 ea PO DAILY Gastrointestinal 03/27/19 08/09/24 History
billion cell capsule Issue
ezetimibe 10 mg tablet 10 mg PO QPM High Cholesterol 02/14/23 08/09/24 History
ferrous sulfate 325 mg (65 mg 325 mg PO QPM Supplement 02/14/23 08/09/24 History
iron) tablet
tadalafil 20 mg tablet (Cialis) 20 mg PO DAILY PRN ED 02/14/23 08/09/24 History
tadalafil 5 mg tablet 5 mg PO HS Urinary Issue 02/14/23 08/09/24 History
docusate sodium 100 mg capsule 100 mg PO BIDPRN PRN stool softner 03/12/23 08/09/24 History
(Colace)
multivitamin 1 tab PO DAILY Supplement 03/12/23 08/09/24 History
omega 8-aeu-kco-fish oil 1,000 mg 1 cap PO DAILY Supplement 03/12/23 08/09/24 History
(120 mg-180 mg) capsule (Fish Oil)
aspirin 81 mg tablet 81 mg PO QPM 07/26/24 08/09/24 History
dapagliflozin propanediol 10 mg 10 mg PO DAILY 07/26/24 08/09/24 History
tablet (Farxiga)
furosemide 20 mg tablet (Lasix) 40 mg (2 x 20 mg) PO DAILY #60 tabs 07/26/24 08/09/24 Rx
zinc sulfate 50 mg zinc (220 mg) 50 mg PO DAILY 08/09/24 08/09/24 History
tablet
Review of Systems
-
History Source: Patient
All other systems: Negative unless noted
Constitutional: Weight Gain
Respiratory: Cough and Trouble Breathing
Cardiac: Palpitations
Musculoskeletal: Edema
Physical Exam
Vital Signs
Temp Pulse Resp BP Pulse Ox
98.1 F 68 21 130/64 95
08/09/24 03:08 08/09/24 04:57 08/09/24 03:30 08/09/24 04:57 08/09/24 03:35
Lab Results
08/09/24 07:00
08/09/24 03:26
Troponin I 3.720 ng/ml H* 08/09/24 07:00
Ius-R-Qjzscwfdjqr Pept 34271 pg/ml 08/09/24 03:26
Physical Exam
General: Well Developed, Well Nourished and No Apparent Distress
HEENT: Normocephalic and Anicteric
Respiratory: Crackles and Other (On O2 by [place])
Cardiac: Regular Rhythm and Murmur (II/ systolic)
Neuro: AO x 3
Psych: Calm
Impression / Plan
-
Tpxhu-ai-cogjfii HFrEF:
-agree with IV diuresis, which requires intensive monitoring
-patient thinks dry weight is 145 lbs and is currently 153 lbs. Of note, he has been off Lasix/Farxiga due to OP labs and has been on vacation eating out 1-2 times per day, so likely excess fluid/sodium, both of which have contributed. Recent heart
cath values as below.
-CHF education, sodium/fluid restriction
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
-volume plan as above
-GDMT limited by renal function presently. Continue BB.
Abnormal troponin:
-no CP, EKG stable, trop trending down
-NSTEMI versus type II TX (in setting of anemia, hypoxia, renal dysfunction)
-continue IV heparin for now, which requires intensive monitoring
-Continue ASA, statin, BB
-will need cath- timing to be determined
CAD with multivessel CAD:
-plan was for high-risk PCI later this month- discuss timing with team
-recent cath as below
Anemia:
-consider transfusion, add iron studies
CKD3:
-Dr. Anne is pharmacist per diem
-would consider consult since patient with CKD, CHF requiring IV lasix, and need for heart cath
Moderate :
-monitor over time by echo
Data:
Echo 07/26/24: Moderately dilated LV with moderately reduced systolic function. LVEF is 30-35% by visual estimation. Inferior, anterior, and anterolateral hypokinesis; the apex appears akinetic. Stage II diastolic dysfunction. Mild mitral
regurgitation. Moderate aortic stenosis. Estimated pulmonary artery pressure of 38 mmHg.
Cardiac MRI 07/20/24: Dilated left ventricle. Myocardial wall thickening with hypokinesis involving the apical portion of the left ventricle as well as the inferoseptal distal mid left ventricle. There is also mild dyskinesis involving the apical
portion. Postcontrast enhancement in these regions, mainly subendocardial. Findings are suggestive of previous infarction/ischemic scarring. Calculated left ventricular ejection fraction of 32%. No MR evidence for a diffuse infiltrative process of
the left ventricular myocardium. Normal MR appearance of the right ventricle.
Cath 07/26/24: Right dominant circulation with chronic total occlusion of the ostial RCA, nonintervenable, diffuse disease in the distal/apical LAD, a 70% lesion in the proximal ramus followed by an 80% lesion in the mid ramus, immediately proximal to
the bifurcation point and an 80% lesion in the proximal/ostial circumflex. Severely elevated filling pressures (LVEDP = 27 mmHg, PCWP = 30 mmHg at 113.9 kg) with evidence of diastolic dysfunction (A wave to 37 mmHg) and either severe mitral
regurgitation or a noncompliant left atrium (V wave to 52 mmHg). Mild/moderate postcapillary pulmonary hypertension (mean PA = 41 mmHg, PCWP = 30 mmHg, cardiac output = 5.93 L/min, PVR = 1.85 Wood units), WHO group 2. Mild to moderate aortic valve
stenosis on pullback (mean AV gradient = 25.7 mmHg, NICKIE = 1.41 cm�). Significant anemia which may be affecting symptom burden. Diuresis, then plan for staged, high risk PCI of the circumflex and ramus intermedius barring surgical mitral valve
disease at the time of echocardiogram. I will plan to bring the patient back for PCI in approximately 1 month to allow him to compensate from his heart failure standpoint and fulfill his ordered testing.
Data Reviewed
-
EKG: Tracing Personally Visualized and interpreted (SR with 1st degree AVB, bifasicular block)
Radiology: Image Personally Visualized and interpreted (evidence for excess volume on my review; radiology report pending)
MRI: Report Reviewed by me (as noted)
Medical Tests (Nuc Med, Echo etc): Report Reviewed by me (as noted)
Labs: Labs Reviewed by me
[2024-08-09 08:21] LABS: TSH Reflex To Free T4 2.24 uIU/ml (0.47-4.68)
[2024-08-09 08:28] LABS: Glucose - Point of Care 223 mg/dl (70-99)
[2024-08-09] MEDS: LOW STRENGTH ASPIRIN 81 MG PO (09:18)
[2024-08-09] MEDS: NOVOLOG FLEXPEN-MODERATE RESISTANCE 3 UNITS SC ×2 (09:18→15:12)
[2024-08-09] MEDS: COREG 25 MG PO ×2 (09:18→19:39)
[2024-08-09 10:38] LABS: Iron 32 ug/dl (49-181)
[2024-08-09 10:48] LABS: Percent Saturation 10 % (20-50); Total Iron Binding Capacity 303 ug/dl (261-462)
--- NOTE | 2024-08-09 11:32 | W.PN.HOSP.TC ---
Today's Communication/Plan
-
Diuresis
IV iron
Assessment / Plan
Assessment / Plan
84-year-old with shortness of breath
Symptoms for 2 weeks with palpitations and fatigue cardiac cath 07/26/2024 revealed multivessel disease with elevated filling pressures Lasix was increased staged PCI of the left circumflex and ramus was planned for 08/16/2024. About a week ago he was
advised to stop Lasix Farxiga and losartan for the upcoming cath he gained 4 pounds.
Chest x-ray reviewed by me-pulmonary edema
Echo 07/26/2024-moderately dilated LV with moderately reduced systolic function. EF 30 to 35%. Inferior, anterior, anterolateral hypokinesis. Stage II diastolic dysfunction. Mild MR. Moderate . Pulmonary artery pressure of 38 mmHg.
Awake alert
Cardiovascular system S1-S2 regular, systolic murmur at aortic area
Chest few rales
Abdomen soft and nontender
Bilateral pedal edema
# Non-STEMI
ASCVD
Troponin trending down
Continue aspirin, heparin, beta-sandie, statin
Cardiology evaluation
High risk PCI was planned for 08/16/2024
Cath is planned after adequate diuresis
# Acute on chronic HFrEF
Was advised to stop diuretics?
Continue Lasix 40 mg IV twice daily
Intake output charting, daily weights
Echo 07/26/2024 with EF 30 to 35%
# Acute kidney injury on CKD stage III
Hyperkalemia should improve with Lasix
Normally creatinine is 2.0 now 2.6
Likely cardiorenal
Continue Lasix and follow creatinine
Hold metformin
Continue to hold Farxiga and losartan
Nephrology evaluation
# Anemia-likely secondary to chronic kidney disease
Iron deficiency noted
Add IV iron
# Hypertension-continue Coreg
Hold off on losartan
# Poorly controlled diabetes
Hold Farxiga
Continue Lantus-uses 16 units at home-ordered 13 units for tonight
Hold metformin with elevated creatinine
Accu-Cheks and sliding scale coverage
# Hyperlipidemia-continue Zetia and statin
# History of carotid endarterectomy
# Sleep apnea-continue PAP therapy
# Obesity with a BMI of 37
# History of prostate cancer
# DVT prophylaxis-IV heparin
# Full code
Discussed with nursing at bedside
Discussed with cardiology
Part of this note was created using voice recognition system. Occasional wrong word or��sound alike� substitutions may have inadvertently occurred due to the inherent limitations of voice recognition software. If noted kindly bring it to my
attention for correction.
Anticipated Discharge: > 48 hours
Subjective/Interval History
-
Date of Service: August 09, 2024
Objective Data
-
Labs:
Laboratory Results
08/09/24 08/09/24 08/09/24
03:26 07:00 13:30
WBC 12.4 H 11.5 H
Hgb 8.1 L 7.9 L
Hct 24.2 L 24.0 L
Plt Count 186 185
APTT 33.3 Pending
Sodium 133 L
Potassium 5.4 H
Chloride 106
Carbon Dioxide 19 L
BUN 63 H
Creatinine 2.6 H
Glucose 230 H
Calcium 9.6
Total Bilirubin 1.3
AST 49
ALT 65 H
Alkaline Phosphatase 59
Vital Signs:
Vital Signs
Temp Pulse Resp BP Pulse Ox
97.7 F 63 20 128/72 100
08/09/24 10:58 08/09/24 10:00 08/09/24 10:58 08/09/24 08:23 08/09/24 10:58
I&O
08/08/24 08/09/24 08/10/24
06:59 06:59 06:59
Output Total 300 / 300
Balance -300 / -300
--- NOTE | 2024-08-09 11:47 | W.CON.NEPH ---
Consultation
-
Date/Time Consultation Requested: 08/09/24 1128
Date/Time Consultation Performed: 08/09/24 1130
Requesting Provider: Daphne Feliciano
Performing Provider: Maral Sal
Reason for Consultation: Kelly with CKD
Medical History
-
Chief Complaint: SOB
History of Present Illness:
84y M with PMH significant for ASCVD, hypertension on Coreg and Losartan, DM-II on insulin and metformin and CKD3b baseline cr [address] Myers who presents to ED complaining of SOB on 08/09 morning. Patient states that he has had symptoms
for > 2 weeks of intermittent palpitations / racing heartbeat, dyspnea with minimal activity / exertion and general fatigue. He denies any chest pain, pressure or heaviness. He underwent cardiac cath on 07/26/24. This revealed multi-vessel disease
and elevated filling pressures PCWP of 30 echo noted EF of 30-35%. Patient's Lasix was briefly increased and he was scheduled for high-risk, staged PCI of the LCx and the ramus intermedius(08/16/24). Reportedly last week he was advised to stop his
Lasix, Farxiga and losartan for elevated cr 2.5 and he slowly gained weight and sob became worse. He has noted audible wheezing and increased frequency and severity of dyspnea. Has no dysuria but mild hesitancy.
In this same week time frame, patient went on vacation with family and admits to dietary indiscretion at that time.
His labs this am shows cr up at 2.7, potassium 5.4. sodium 133. hb low 8.1. Nephrology asked to eval KELLY.
he was noted in CHF flare and increased trop concern of NSTEMI. POtential plan of high risk PCI this week.
Past Medical History
ASCVD (CAD, Carotid Stenosis)
Hypertension
DM-II
CKD III
ROHINI on CPAP
Chronic Anemia
Prostate Cancer s/p Radiation Seeds
Obesity
Past Surgical History: Other (T&A Hernia Repair Left CEA Cataracts Appendectomy Left Arm ORIF Left TKA)
Social History
Tobacco: Non-Smoker
Alcohol: None
Drug: None
Personal:
Living: With Family
Family History
father premature CAD at age 47
mother CVA, dementia
Family History: Not Pertinent
Allergies / Home Medications
Allergy/AdvReac Type Severity Reaction Status Date / Time
poison go extract Allergy Unknown Verified 08/09/24 03:15
pollen extracts Allergy Itching Verified 08/09/24 03:15
�Medication �Instructions �Recorded �Confirmed �Type
carvedilol 12.5 mg tablet 25 mg PO BID Blood Pressure 07/23/17 08/09/24 History
cholecalciferol (vitamin D3) 50 2,000 unit PO BID Supplement 07/23/17 08/09/24 History
mcg (2,000 unit) capsule (Vitamin
D3)
cyanocobalamin (vitamin B-12) 1,000 mcg PO DAILY Supplement 07/23/17 08/09/24 History
1,000 mcg capsule
insulin glargine 100 unit/mL (3 16 units SC HS Diabetes 07/23/17 08/09/24 History
mL) subcutaneous pen (Lantus
Solostar U-100 Insulin)
losartan 50 mg tablet 50 mg PO DAILY Blood Pressure 07/23/17 08/09/24 History
metformin 1,000 mg tablet 1,000 mg PO BID@0800,1700 Diabetes 07/23/17 08/09/24 History
rosuvastatin 40 mg tablet 40 mg PO QPM High Cholesterol 07/23/17 08/09/24 History
L.acidoph,paracasei,B.animalis 10 1 ea PO DAILY Gastrointestinal 03/27/19 08/09/24 History
billion cell capsule Issue
ezetimibe 10 mg tablet 10 mg PO QPM High Cholesterol 02/14/23 08/09/24 History
ferrous sulfate 325 mg (65 mg 325 mg PO QPM Supplement 02/14/23 08/09/24 History
iron) tablet
tadalafil 20 mg tablet (Cialis) 20 mg PO DAILY PRN ED 02/14/23 08/09/24 History
tadalafil 5 mg tablet 5 mg PO HS Urinary Issue 02/14/23 08/09/24 History
docusate sodium 100 mg capsule 100 mg PO BIDPRN PRN stool softner 03/12/23 08/09/24 History
(Colace)
multivitamin 1 tab PO DAILY Supplement 03/12/23 08/09/24 History
omega 0-ple-hgr-fish oil 1,000 mg 1 cap PO DAILY Supplement 03/12/23 08/09/24 History
(120 mg-180 mg) capsule (Fish Oil)
aspirin 81 mg tablet 81 mg PO QPM 07/26/24 08/09/24 History
dapagliflozin propanediol 10 mg 10 mg PO DAILY 07/26/24 08/09/24 History
tablet (Farxiga)
furosemide 20 mg tablet (Lasix) 40 mg (2 x 20 mg) PO DAILY #60 tabs 07/26/24 08/09/24 Rx
zinc sulfate 50 mg zinc (220 mg) 50 mg PO DAILY 08/09/24 08/09/24 History
tablet
Review of Systems
-
All other systems: Negative unless noted
Physical Exam
Vital Signs
Vital Signs
Temp Pulse Resp BP Pulse Ox
97.7 F 56 20 102/60 100
08/09/24 10:58 08/09/24 11:30 08/09/24 10:58 08/09/24 10:59 08/09/24 10:58
Lab Results
WBC 11.5 10^3/uL (4.8-10.8) H 08/09/24 07:00
RBC 2.46 10^6/uL (4.70-6.10) L 08/09/24 07:00
Hgb 7.9 g/dL (13.0-18.0) L 08/09/24 07:00
Hct 24.0 % (39.0-52.0) L 08/09/24 07:00
Plt Count 185 10^3/uL (130-400) 08/09/24 07:00
Sodium 133 mmol/L (135-145) L 08/09/24 03:26
Potassium 5.4 mmol/L (3.5-5.1) H 08/09/24 03:26
Chloride 106 mmol/L (98-107) 08/09/24 03:26
Carbon Dioxide 19 mmol/L (22-30) L 08/09/24 03:26
BUN 63 mg/dl (9-20) H 08/09/24 03:26
Creatinine 2.6 mg/dL (0.7-1.3) H 08/09/24 03:26
eGFR 23.73 08/09/24 03:26
Glucose 230 mg/dl (70-99) H 08/09/24 03:26
Calcium 9.6 mg/dl (8.4-10.2) 08/09/24 03:26
Iwm-Z-Lhgdeuwyufo Pept 28238 pg/ml 08/09/24 03:26
Albumin 3.9 g/dl (3.5-5.0) 08/09/24 03:26
Physical Exam
General: Awake, Alert, Oriented, AOx3 and No Distress
HEENT: EOMI, Anicteric and Facial Symmetry
Respiratory: Crackels, Normal Excursion and Nonlabored Respirations
Cardiac: S1/S2, Regular Rate/Rhythm and Murmur
Breast: Deferred by me
Abdomen: Soft, Nontender and Nondistended
Musculoskeletal: No Cyanosis and Edema (2+)
Neuro: Nonfocal/Grossly Intact
Psych: Mood/afflect pleasant, Insight/judgement good and Appropriate
Assessment/Plan
-
IMP:
Non-STEMI
ASCVD
Acute on chronic HFrEF
Echo 07/26/2024 with EF 30 to 35%
Acute kidney injury on CKD stage IIIb baseline cr 2, follow Dr Myers
Hyperkalemia
Anemia
Hypertension
Poorly controlled diabetes
Hyperlipidemia
History of carotid endarterectomy
Sleep apnea
Obesity
hypervolemic hyponatremia
PCWP 30 on 07/26 with wt 113.9kg
Plan:
A/w sob, recnet diagnosis of MVD and need of High risk PCI
KELLY-cr up at 2.7, check U fena, highly suspect it is cardiorenal
cont IV diuresis, symp seem to get better
follow bladder scan
if cr cont to increase may wait for LHC till cr stabilizes
maintain FR 48 ounces/day
bp soft, hold ARB
mild hyperkalemia expect to improve with lasix
follow h/h, fe def noted, started iV fe course per primary
follow daily wts and labs
avoid nephrotoxins
mild hypervolemic hyponatremia
d/w pt and family
--- NOTE | 2024-08-09 11:50 | PTCARENOTE ---
Rec'd pt from ED. Tele- SR w/ BBBC and 1st deg HB. HR 60s. Pt sating 95% on 4L O2 NC. Assessment completed as documented. Pt is dyspneic on exertion. Heparin gtt infusing at 1000 units/hr. Pt oriented to room. Pt OOB in recliner chair; call small
w/in reach.
--- NOTE | 2024-08-09 12:08 | CM ---
Reviewed chart. Met with and Mrs. Mcmullen to review discharge plans. He states prior to admission he resides with his spouse in a two story home with three steps to enter. He states his main bedroom with full bathroom are on the first floor. He
states prior to admission he ambulates with a single point cane in the home and uses a walking stick in the community. He states he has a walker, single point cane, walking stick and CPAP Machine at home. He states he has a prescription plan and
uses [facility] mail order and [facility] when needed. He states he has never needed VNA Services in the past. Will need to see his current functional level to see if he will have any skilled care needs. Medical work-up in progress. The discharge
plan is to return home with his spouse when medically stable.
[2024-08-09] MEDS: FERRLECIT 110 MG IV (13:24)
[2024-08-09 13:44] LABS: APTT 56.8 Sec (23.4-35.0)
[2024-08-09 14:47] LABS: Vitamin B12 940 pg/ml (239-931)
[2024-08-09 15:11] LABS: Glucose - Point of Care 217 mg/dl (70-99)
[2024-08-09 15:20] LABS: Iron 34 ug/dl (49-181)
[2024-08-09 15:28] LABS: Percent Saturation 12 % (20-50); Total Iron Binding Capacity 275 ug/dl (261-462)
[2024-08-09] MEDS: CRESTOR 40 MG PO (17:37)
[2024-08-09] MEDS: ZETIA 10 MG PO (17:37)
[2024-08-09 18:20] LABS: Glucose - Point of Care 273 mg/dl (70-99)
[2024-08-09] MEDS: NOVOLOG FLEXPEN-MODERATE RESISTANCE 5 UNITS SC (18:20)
[2024-08-09 20:19] LABS: APTT 112.4 Sec (23.4-35.0)
[2024-08-09] MEDS: LANTUS 0.13 UNITS SC (21:17)
[2024-08-09 21:19] LABS: Glucose - Point of Care 257 mg/dl (70-99)
--- NOTE | 2024-08-09 22:35 | PTCARENOTE ---
Pt rec'd at change of shift in recliner chair. Coarse breath sounds in bases with occ dry cough noted. o2 at 2 lit n/c removed sat on r/a 93%. Pt wearing own cpap at hs.
Sinus with first degree BBB and + murmur. heparin gtt adjusted to 1100 units for ptt 112.4. [employer] contacted for moisture related irritation in buttock crease. Aquaphor ointment obtained since pt states this is his treatment at home per family
[2024-08-10] VITALS (9 sets, daily range): BP systolic 101–123; BP diastolic 51–67; BMI 37.3
[2024-08-10 03:27] LABS: APTT 112.8 Sec (23.4-35.0)
[2024-08-10 04:21] LABS: ALT (SGPT) 57 U/L (0-50); AST (SGOT) 41 U/L (17-59); Albumin 3.2 g/dl (3.5-5.0); Alkaline Phosphatase 51 U/L (38-126); Blood Urea Nitrogen 69 mg/dl (9-20); Calcium 9.1 mg/dl (8.4-10.2); Carbon Dioxide 20 mmol/L (22-30); Chloride 105 mmol/L (98-107); Direct Bilirubin 0.2 mg/dl (0.0-0.4); Estimated Creatinine Clearance 27 ml/min; Glucose 166 mg/dl (70-99); HDL Cholesterol 34 mg/dl; LDL Cholesterol, Calculated 23 mg/dl; Potassium 4.3 mmol/L (3.5-5.1); Sodium 133 mmol/L (135-145); Total Bilirubin 1.2 mg/dl (0.2-1.3); Total Cholesterol 74 mg/dl (50-199); Total Protein 5.4 g/dl (6.3-8.2); Triglyceride 88 mg/dl (10-149); Very Low Density Lipoprotein 17 mg/dl (0-30); eGFR 23.73
[2024-08-10] MEDS: HEPARIN 25000 UNITS/250 ML IV (05:22)
[2024-08-10 07:04] LABS: Glucose - Point of Care 197 mg/dl (70-99)
[2024-08-10] MEDS: LASIX 40 MG IV ×2 (08:24→09:36)
[2024-08-10] MEDS: COREG 25 MG PO ×2 (08:24→20:57)
[2024-08-10] MEDS: LOW STRENGTH ASPIRIN 81 MG PO (08:24)
--- NOTE | 2024-08-10 08:41 | W.PN.CD ---
Today's Communication / Plan
-
increase lasix to 80mg IV BID
Impression / Plan
-
Pjchh-no-xzxbqil HFrEF:
-PCWP = 30 mmHg at 113.9 kg
-agree with IV diuresis, which requires intensive monitoring
-Increase to 80mg iv bid
-patient thinks dry weight is 145 lbs and is currently 153 lbs. Of note, he has been off Lasix/Farxiga due to OP labs and has been on vacation eating out 1-2 times per day, so likely excess fluid/sodium, both of which have contributed. Recent heart
cath values as below.
-CHF education, sodium/fluid restriction
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
-volume plan as above
-GDMT limited by renal function presently. Continue BB.
Acute on CKD3:
-Dr. Anne is op patch setter
-Nephrology following
-suspect volume overload is the etiology
Abnormal troponin:
-no CP, EKG stable, trop trending down
-NSTEMI versus type II CO (in setting of anemia, hypoxia, renal dysfunction)
-continue IV heparin for now, which requires intensive monitoring
-Continue ASA, statin, BB
-will need cath- timing to be determined
CAD with multivessel CAD:
-plan was for high-risk PCI
-d/w Dr Sutton if optimized will plan for but may be too optimistic a plan
Anemia:
-IV iron added
Moderate :
-monitor over time by echo
Subjective:
He is feeling better, able to sleep last night.
Data:
Echo 07/26/24: Moderately dilated LV with moderately reduced systolic function. LVEF is 30-35% by visual estimation. Inferior, anterior, and anterolateral hypokinesis; the apex appears akinetic. Stage II diastolic dysfunction. Mild mitral
regurgitation. Moderate aortic stenosis. Estimated pulmonary artery pressure of 38 mmHg.
Cardiac MRI 07/20/24: Dilated left ventricle. Myocardial wall thickening with hypokinesis involving the apical portion of the left ventricle as well as the inferoseptal distal mid left ventricle. There is also mild dyskinesis involving the apical
portion. Postcontrast enhancement in these regions, mainly subendocardial. Findings are suggestive of previous infarction/ischemic scarring. Calculated left ventricular ejection fraction of 32%. No MR evidence for a diffuse infiltrative process of
the left ventricular myocardium. Normal MR appearance of the right ventricle.
Cath 07/26/24: Right dominant circulation with chronic total occlusion of the ostial RCA, nonintervenable, diffuse disease in the distal/apical LAD, a 70% lesion in the proximal ramus followed by an 80% lesion in the mid ramus, immediately proximal to
the bifurcation point and an 80% lesion in the proximal/ostial circumflex. Severely elevated filling pressures (LVEDP = 27 mmHg, PCWP = 30 mmHg at 113.9 kg) with evidence of diastolic dysfunction (A wave to 37 mmHg) and either severe mitral
regurgitation or a noncompliant left atrium (V wave to 52 mmHg). Mild/moderate postcapillary pulmonary hypertension (mean PA = 41 mmHg, PCWP = 30 mmHg, cardiac output = 5.93 L/min, PVR = 1.85 Wood units), WHO group 2. Mild to moderate aortic valve
stenosis on pullback (mean AV gradient = 25.7 mmHg, NICKIE = 1.41 cm�). Significant anemia which may be affecting symptom burden. Diuresis, then plan for staged, high risk PCI of the circumflex and ramus intermedius barring surgical mitral valve
disease at the time of echocardiogram. I will plan to bring the patient back for PCI in approximately 1 month to allow him to compensate from his heart failure standpoint and fulfill his ordered testing.
Physical Exam
Vital Signs/Labs
Vital Signs
Temp Pulse Resp BP Pulse Ox
98.4 F 59 18 116/64 95
08/10/24 06:56 08/10/24 07:30 08/10/24 06:56 08/10/24 06:59 08/10/24 06:56
08/09/24 08/10/24 08/11/24
06:59 06:59 06:59
Actual Weight 261 lb 11.019 oz 252 lb 6.868 oz
08/09/24 07:00
08/10/24 03:04
APTT 112.8 Sec (23.4-35.0) H 08/10/24 03:04
Triglycerides 88 mg/dl (10-149) 08/10/24 03:04
LDL Cholesterol, Calc 23 mg/dl 08/10/24 03:04
VLDL Cholesterol, Calc 17 mg/dl (0-30) 08/10/24 03:04
HDL Cholesterol 34 mg/dl 08/10/24 03:04
08/09/24
03:26
Tkt-L-Uarclphjeqn Pept 72699
LAB Results
08/09/24 08/09/24 08/09/24
03:26 07:00 13:20
Troponin I 4.000 H* 3.720 H* 4.020 H*
08/09/24 08/09/24 08/10/24
18:39 20:00 03:06
Troponin I Cancelled 4.230 H* 3.900 H*
Data Reviewed
-
Date of Service: August 10, 2024
[2024-08-10 09:40] LABS: Glucose - Point of Care 189 mg/dl (70-99)
[2024-08-10] MEDS: NOVOLOG FLEXPEN-MODERATE RESISTANCE 1 UNITS SC (09:42)
--- NOTE | 2024-08-10 10:00 | PTCARENOTE ---
Rec'd pt at handoff. Tele- SR w/ BBBC and 1st deg HB. HR 60s. Assessment completed as documented. Pt has no complaints pain/discomfort/sob. Pt states he is 'feeling much better today and breathing feels better.' Plan of care reviewed w/ pt and
verbalizes understanding. Heparin gtt infusing at 10 ml/hr. Currently OOB in chair; call staci w/in reach.
--- NOTE | 2024-08-10 10:21 | W.PN.HOSP.TC ---
Today's Communication/Plan
-
Diuresis
Assessment / Plan
Assessment / Plan
84-year-old with shortness of breath
Symptoms for 2 weeks with palpitations and fatigue cardiac cath 07/26/2024 revealed multivessel disease with elevated filling pressures Lasix was increased staged PCI of the left circumflex and ramus was planned for 08/16/2024. About a week ago he was
advised to stop Lasix Farxiga and losartan for the upcoming cath he gained 4 pounds.
Chest x-ray reviewed by me-pulmonary edema
Echo 07/26/2024-moderately dilated LV with moderately reduced systolic function. EF 30 to 35%. Inferior, anterior, anterolateral hypokinesis. Stage II diastolic dysfunction. Mild MR. Moderate . Pulmonary artery pressure of 38 mmHg.
Awake alert
Cardiovascular system S1-S2 regular, systolic murmur at aortic area
Chest few rales at bases
Abdomen soft and nontender
Bilateral pedal edema better
# Non-STEMI
ASCVD
Troponin trending down
Continue aspirin, heparin, beta-sandie, statin
High risk PCI was planned for 08/16/2024
Cath is planned after adequate diuresis
# Acute on chronic HFrEF
Was advised to stop diuretics as OP?
Continue Lasix 80 mg IV twice daily
Intake output charting, daily weights
weight better
Echo 07/26/2024 with EF 30 to 35%
# Acute kidney injury on CKD stage III
Hyperkalemia resolved
Normally creatinine is 2.0 now 2.6
Likely cardiorenal
Continue Lasix and follow creatinine
Hold metformin
Continue to hold Farxiga and losartan
Nephrology evaluation
# Anemia-likely secondary to chronic kidney disease
Iron deficiency noted
Added IV iron
# Hypertension-continue Coreg
Hold off on losartan
# Poorly controlled diabetes
Hold Farxiga
Continue Lantus-uses 14 units at home-ordered 13 units for tonight
Hold metformin with elevated creatinine
Accu-Cheks and sliding scale coverage
# Hyperlipidemia-continue Zetia and statin
# History of carotid endarterectomy
# Sleep apnea-continue PAP therapy
# Obesity with a BMI of 37
# History of prostate cancer
# DVT prophylaxis-IV heparin
# Full code
Discussed with nursing at bedside
Discussed with cardiology
Part of this note was created using voice recognition system. Occasional wrong word or��sound alike� substitutions may have inadvertently occurred due to the inherent limitations of voice recognition software. If noted kindly bring it to my
attention for correction.
Anticipated Discharge: > 48 hours
Subjective/Interval History
-
Date of Service: August 10, 2024
Objective Data
-
Labs:
Laboratory Results
08/10/24 08/10/24
03:04 10:10
APTT 112.8 H Pending
Sodium 133 L
Potassium 4.3
Chloride 105
Carbon Dioxide 20 L
BUN 69 H
Creatinine 2.6 H
Glucose 166 H
Calcium 9.1
Total Bilirubin 1.2
AST 41
ALT 57 H
Alkaline Phosphatase 51
Vital Signs:
Vital Signs
Temp Pulse Resp BP Pulse Ox
98.4 F 57 18 111/57 95
08/10/24 06:56 08/10/24 09:45 08/10/24 06:56 08/10/24 09:37 08/10/24 08:00
I&O
08/09/24 08/10/24 08/11/24
06:59 06:59 06:59
Intake Total 600 / 600
Output Total 1750 / 1750 400 / 400
Balance -1150 / -1150 -400 / -400
[2024-08-10 10:28] LABS: Glycohemoglobin (HgbA1c) 6.9 % (4.0-5.6)
[2024-08-10 11:13] LABS: APTT 74.8 Sec (23.4-35.0)
[2024-08-10 11:23] LABS: Glucose - Point of Care 205 mg/dl (70-99)
--- NOTE | 2024-08-10 11:36 | W.PN.NEPH.PH ---
Today's Communication / Plan
-
cont diuresis and follow labs
Assessment/Plan
-
IMP:
Non-STEMI
ASCVD
Acute on chronic HFrEF
Echo 07/26/2024 with EF 30 to 35%, mod
Acute kidney injury on CKD stage IIIb baseline cr 2, follow Dr Myers
Hyperkalemia
Anemia
Hypertension
Poorly controlled diabetes
Hyperlipidemia
History of carotid endarterectomy
Sleep apnea
Obesity
hypervolemic hyponatremia
PCWP 30 on 07/26 with wt 113.9kg
Plan:
A/w sob, recnet diagnosis of MVD and need of High risk PCI
SERA-cr up at 2.6 no change, check U fena, highly suspect it is cardiorenal
lasix increased to 80mg BID per cards, symp seem to get better
follow bladder scan
would wait for cr return to baseline prior [facility]
maintain FR 48 ounces/day
bp stable, cont to hold ARB
mild hyperkalemia expect to improve with lasix
follow h/h, fe def noted, on iV fe course per primary
follow daily wts and labs
avoid nephrotoxins
mild hypervolemic hyponatremia-stable
d/w pt and family
d/w cards
-
-
Date of Service: August 10, 2024
CC / HPI / ROS
-
Chief Complaint:
Sera with CKD
History of Present Illness:
cr no change at 2.6, k normal
sodium low and stable at 133
troponin 3.9
Bp stable
hb low 7.9 ,on iv heparin gtt
Review of Systems:
sob improving , can not lay flat -chronically
wt is down
no cp
Labs
-
Labs:
WBC 11.5 10^3/uL (4.8-10.8) H 08/09/24 07:00
RBC 2.46 10^6/uL (4.70-6.10) L 08/09/24 07:00
Hgb 7.9 g/dL (13.0-18.0) L 08/09/24 07:00
Hct 24.0 % (39.0-52.0) L 08/09/24 07:00
Plt Count 185 10^3/uL (130-400) 08/09/24 07:00
Sodium 133 mmol/L (135-145) L 08/10/24 03:04
Potassium 4.3 mmol/L (3.5-5.1) 08/10/24 03:04
Chloride 105 mmol/L (98-107) 08/10/24 03:04
Carbon Dioxide 20 mmol/L (22-30) L 08/10/24 03:04
BUN 69 mg/dl (9-20) H 08/10/24 03:04
Creatinine 2.6 mg/dL (0.7-1.3) H 08/10/24 03:04
eGFR 23.73 08/10/24 03:04
Glucose 166 mg/dl (70-99) H 08/10/24 03:04
Calcium 9.1 mg/dl (8.4-10.2) 08/10/24 03:04
Puh-A-Jihrootmqqx Pept 14907 pg/ml 08/09/24 03:26
Albumin 3.2 g/dl (3.5-5.0) L 08/10/24 03:04
Physical Exam
-
Vital Signs:
Vital Signs
Temp Pulse Resp BP Pulse Ox
97.6 F 57 18 111/57 98
08/10/24 11:14 08/10/24 11:14 08/10/24 11:14 08/10/24 09:37 08/10/24 11:14
Cardiovascular:: Regular rate and rhythm
Respiratory:: Bilateral: Rales
Lung Excursion:: Normal
Abdomen:: Nontender and Soft
Extremity Edema:: +1: Bilateral:
Zavala Catheter: No
[2024-08-10] MEDS: FERRLECIT 110 MG IV (13:13)
[2024-08-10] MEDS: NOVOLOG FLEXPEN-MODERATE RESISTANCE 3 UNITS SC (13:50)
[2024-08-10 13:51] LABS: Glucose - Point of Care 231 mg/dl (70-99)
--- NOTE | 2024-08-10 14:55 | CM ---
Reviewed chart. Met with and Mrs. Mcmullen to review discharge plans. He states he is feeling better. he maybe going for a Cardiac Cath later this week. Prior to admission he reisdes with his spouse in a two story home with three steps to enter.
He main bedroom and bathroom are on the first floor. Prior to admission he ambulates with a single point cane in the home and uses a walking stick in the community. He has a walker, single point cane, walking stick and CPAP Machine at home. He has
a prescription jamal and uses [facility] mail order and [facility] pharmacy when needed. He has never needed VNA Services. Will need to see his current functional levlel to see if he will need any skilled care services. Medical work-up in progress. The
discharge plan is to return home with his spouse when medically stable.
[2024-08-10 16:38] LABS: Glucose - Point of Care 286 mg/dl (70-99)
[2024-08-10] MEDS: LASIX 80 MG IV (16:49)
[2024-08-10] MEDS: ZETIA 10 MG PO (16:53)
[2024-08-10] MEDS: NOVOLOG FLEXPEN-MODERATE RESISTANCE 5 UNITS SC (16:53)
[2024-08-10] MEDS: CRESTOR 40 MG PO (16:53)
[2024-08-10 17:08] LABS: APTT 89.5 Sec (23.4-35.0)
[2024-08-10 21:02] LABS: Glucose - Point of Care 238 mg/dl (70-99)
[2024-08-10] MEDS: LANTUS 0.14 UNITS SC (21:41)
[2024-08-11] VITALS (9 sets, daily range): BP systolic 94–128; BP diastolic 37–77; BMI 36.3
[2024-08-11] MEDS: HEPARIN 25000 UNITS/250 ML IV (00:46)
--- NOTE | 2024-08-11 01:02 | PTCARENOTE ---
Assumed care of the pt @ 1900 Pt is AAOx3 SR 1st degree AVB with BBB. Denies cp Hep gtt infusing at 1000 units/ HR. Call small within reach
[2024-08-11 04:58] LABS: Hematocrit 22.7 % (39.0-52.0); Hemoglobin 7.8 g/dL (13.0-18.0); Mean Corp Hgb Conc. 34.4 g/dL (33.0-37.0); Mean Corpuscular Hgb 32.6 pg (27.0-31.0); Mean Platelet Volume 9.5 fL (7.4-10.4); Platelet Count 205 10^3/uL (130-400); Red Blood Cell Count 2.39 10^6/uL (4.70-6.10); Red Cell Dist. Width 12.7 % (11.5-14.5)
--- NOTE | 2024-08-11 04:59 | DOWNTIME ---
Addendum entered and electronically signed by Marie Guzmán RN 08/11/24 14:25:
Correction: Downtime was 08/11/2024 from 0100 to 08/11/2024 at 0415
Original Note:
There was a [employer] Downtime on 08/10/2024 from 0100 to 08/11/2024 at 0415. Downtime documentation of patient's care, including medication administrations, has been reconciled in the electronic record per guidelines. Refer to the
patient's paper chart under the miscellaneous tab to see printed paper medication records and downtime forms.
[2024-08-11 05:00] LABS: APTT 84.5 Sec (23.4-35.0)
[2024-08-11 05:10] LABS: Blood Urea Nitrogen 70 mg/dl (9-20); Calcium 9.1 mg/dl (8.4-10.2); Carbon Dioxide 21 mmol/L (22-30); Chloride 104 mmol/L (98-107); Estimated Creatinine Clearance 26 ml/min; Glucose 153 mg/dl (70-99); Potassium 4.1 mmol/L (3.5-5.1); Sodium 133 mmol/L (135-145); eGFR 23.73
[2024-08-11 08:02] LABS: Glucose - Point of Care 174 mg/dl (70-99)
--- NOTE | 2024-08-11 08:23 | W.PN.CD ---
Today's Communication / Plan
-
conitnue diuresis with intensive monitoring
will make npo and assess for possible cath tomorrow
Impression / Plan
-
Gfupc-hx-pwkoyir HFrEF:
-PCWP = 30 mmHg at 113.9 kg
-agree with IV diuresis, which requires intensive monitoring
-Continue to 80mg iv bid
-CHF education, sodium/fluid restriction
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
-volume plan as above
-GDMT limited by renal function presently. Continue BB.
Acute on CKD3:
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
-Nephrology following
-suspect volume overload is the etiology
Abnormal troponin:
-no CP, EKG stable, trop trending down
-NSTEMI versus type II DE (in setting of anemia, hypoxia, renal dysfunction)
-continue IV heparin for now, which requires intensive monitoring
-Continue ASA, statin, BB
-will need cath- timing to be determined, optimistically tomorrow, realistically friday or Friday
-he understands
CAD with multivessel CAD:
-plan was for high-risk PCI
-d/w Dr Sutton if optimized will plan for but may be too optimistic a plan
Anemia:
-IV iron added
Moderate :
-monitor over time by echo
Subjective:
He is feeling better, losing weight
Data:
Echo 07/26/24: Moderately dilated LV with moderately reduced systolic function. LVEF is 30-35% by visual estimation. Inferior, anterior, and anterolateral hypokinesis; the apex appears akinetic. Stage II diastolic dysfunction. Mild mitral
regurgitation. Moderate aortic stenosis. Estimated pulmonary artery pressure of 38 mmHg.
Cardiac MRI 07/20/24: Dilated left ventricle. Myocardial wall thickening with hypokinesis involving the apical portion of the left ventricle as well as the inferoseptal distal mid left ventricle. There is also mild dyskinesis involving the apical
portion. Postcontrast enhancement in these regions, mainly subendocardial. Findings are suggestive of previous infarction/ischemic scarring. Calculated left ventricular ejection fraction of 32%. No MR evidence for a diffuse infiltrative process of
the left ventricular myocardium. Normal MR appearance of the right ventricle.
Cath 07/26/24: Right dominant circulation with chronic total occlusion of the ostial RCA, nonintervenable, diffuse disease in the distal/apical LAD, a 70% lesion in the proximal ramus followed by an 80% lesion in the mid ramus, immediately proximal to
the bifurcation point and an 80% lesion in the proximal/ostial circumflex. Severely elevated filling pressures (LVEDP = 27 mmHg, PCWP = 30 mmHg at 113.9 kg) with evidence of diastolic dysfunction (A wave to 37 mmHg) and either severe mitral
regurgitation or a noncompliant left atrium (V wave to 52 mmHg). Mild/moderate postcapillary pulmonary hypertension (mean PA = 41 mmHg, PCWP = 30 mmHg, cardiac output = 5.93 L/min, PVR = 1.85 Wood units), WHO group 2. Mild to moderate aortic valve
stenosis on pullback (mean AV gradient = 25.7 mmHg, NICKIE = 1.41 cm�). Significant anemia which may be affecting symptom burden. Diuresis, then plan for staged, high risk PCI of the circumflex and ramus intermedius barring surgical mitral valve
disease at the time of echocardiogram. I will plan to bring the patient back for PCI in approximately 1 month to allow him to compensate from his heart failure standpoint and fulfill his ordered testing.
Physical Exam
Vital Signs/Labs
Vital Signs
Temp Pulse Resp BP Pulse Ox
97.8 F 56 18 122/69 98
08/11/24 07:45 08/11/24 08:00 08/11/24 07:45 08/11/24 07:57 08/11/24 07:45
08/10/24 08/11/24 08/12/24
06:59 06:59 06:59
Actual Weight 252 lb 6.868 oz 245 lb 9.519 oz
08/11/24 04:18
08/11/24 04:18
APTT 84.5 Sec (23.4-35.0) H 08/11/24 04:18
Triglycerides 88 mg/dl (10-149) 08/10/24 03:04
LDL Cholesterol, Calc 23 mg/dl 08/10/24 03:04
VLDL Cholesterol, Calc 17 mg/dl (0-30) 08/10/24 03:04
HDL Cholesterol 34 mg/dl 08/10/24 03:04
08/09/24
03:26
Egl-D-Scmtymeyvmw Pept [id number]
LAB Results
08/09/24 08/09/24 08/09/24
03:26 07:00 13:20
Troponin I 4.000 H* 3.720 H* 4.020 H*
08/09/24 08/09/24 08/10/24
18:39 20:00 03:06
Troponin I Cancelled 4.230 H* 3.900 H*
Physical Exam
Constitutional: No acute distress and Comfortable
Cardiovascular: Rhythm & rate is regular, Pedal edema present (1+ b/l) and Systolic murmur present (2/6 crescendo decrescendo)
Respiratory: Respiratory effort normal, Wheeze Absent, Crackles Absent and Crackles Present (basilar)
Neuro/Psych: AO x 3
Data Reviewed
-
Date of Service: August 11, 2024
Medical Decision Making: Review of Case with other Provider (dr alfonso eventual cath asscasa daily)
[2024-08-11] MEDS: COREG 25 MG PO ×2 (09:07→19:44)
[2024-08-11] MEDS: LOW STRENGTH ASPIRIN 81 MG PO (09:07)
[2024-08-11] MEDS: LASIX 80 MG IV ×2 (09:08→17:17)
[2024-08-11] MEDS: NOVOLOG FLEXPEN-MODERATE RESISTANCE 1 UNITS SC ×2 (09:08→11:54)
--- NOTE | 2024-08-11 11:01 | W.PN.NEPH.PH ---
Today's Communication / Plan
-
maintain diueresis for CHF and hypervolemia
creatinine unchanged
Assessment/Plan
-
IMP:
Non-STEMI
ASCVD
Acute on chronic HFrEF
Echo 07/26/2024 with EF 30 to 35%, mod
Acute kidney injury on CKD stage IIIb baseline cr 2, follow Dr Myers
Hyperkalemia
Anemia
Hypertension
Poorly controlled diabetes
Hyperlipidemia
History of carotid endarterectomy
Sleep apnea
Obesity
hypervolemic hyponatremia
PCWP 30 on 07/26 with wt 113.9kg
Plan:
A/w sob, recnet diagnosis of MVD and need of High risk PCI
SERA-cr up at 2.6 no change, checked U fena, highly suspect it is cardiorenal
lasix increased to 80mg BID per cards, symp seem to get better
follow bladder scan
would wait for cr return to baseline prior [facility]
maintain FR 48 ounces/day
bp stable, cont to hold ARB
follow h/h, fe def noted, on iV fe course per primary
follow daily wts and labs
avoid nephrotoxins
mild hypervolemic hyponatremia-stable
d/w pt and family
d/w cards
-
-
Date of Service: August 11, 2024
CC / HPI / ROS
-
Chief Complaint:
Sera with CKD
History of Present Illness:
cr no change at 2.6, k normal
sodium low and stable at 133
troponin 3.9
Bp stable
hb low 7.8 ,on iv heparin gtt
Review of Systems:
sob improving , can not lay flat -chronically
wt is down
no cp
Labs
-
Labs:
WBC 8.0 10^3/uL (4.8-10.8) 08/11/24 04:18
RBC 2.39 10^6/uL (4.70-6.10) L 08/11/24 04:18
Hgb 7.8 g/dL (13.0-18.0) L 08/11/24 04:18
Hct 22.7 % (39.0-52.0) L 08/11/24 04:18
Plt Count 205 10^3/uL (130-400) 08/11/24 04:18
Sodium 133 mmol/L (135-145) L 08/11/24 04:18
Potassium 4.1 mmol/L (3.5-5.1) 08/11/24 04:18
Chloride 104 mmol/L (98-107) 08/11/24 04:18
Carbon Dioxide 21 mmol/L (22-30) L 08/11/24 04:18
BUN 70 mg/dl (9-20) H 08/11/24 04:18
Creatinine 2.6 mg/dL (0.7-1.3) H 08/11/24 04:18
eGFR 23.73 08/11/24 04:18
Glucose 153 mg/dl (70-99) H 08/11/24 04:18
Calcium 9.1 mg/dl (8.4-10.2) 08/11/24 04:18
Fdg-J-Ajipomvnilr Pept 68407 pg/ml 08/09/24 03:26
Albumin 3.2 g/dl (3.5-5.0) L 08/10/24 03:04
Physical Exam
-
Vital Signs:
Vital Signs
Temp Pulse Resp BP Pulse Ox
97.8 F 58 18 117/64 98
08/11/24 07:45 08/11/24 09:07 08/11/24 07:45 08/11/24 09:07 08/11/24 07:45
Cardiovascular:: Regular rate and rhythm
Respiratory:: Bilateral: Coarse and Bilateral: Rales
Lung Excursion:: Normal
Abdomen:: Nontender and Soft
Extremity Edema:: +1: Bilateral:
Zavala Catheter: No
--- NOTE | 2024-08-11 11:24 | CM ---
Reviewed chart. Met with And Mrs. Mcmullen to review discharge plans. He states he is feeling better and may have a Cardiac Cath. later this week. Prior to admission he resides with his spouse in a two story home with three steps to enter. His
bedroom and full bathroom are on the first floor. Prior to admission he ambulated with a single point cane in the home and uses a walking stick in the community. He has a walker, single point cane , walking stick and CPAP Machine at home. He has
a prescription plan with [facility] and uses [facility] pharmacy when needed. Will need to see his current functional level to see if he will have any skilled care needs. Medical work-up in progress. The discharge plan is to return home with
his spouse when medically stable.
[2024-08-11 11:52] LABS: Glucose - Point of Care 198 mg/dl (70-99)
--- NOTE | 2024-08-11 13:10 | W.PN.HOSP.TC ---
Today's Communication/Plan
-
Cath tomorrow
Assessment / Plan
Assessment / Plan
84-year-old with shortness of breath
Symptoms for 2 weeks with palpitations and fatigue cardiac cath 07/26/2024 revealed multivessel disease with elevated filling pressures Lasix was increased staged PCI of the left circumflex and ramus was planned for 08/16/2024. About a week ago he was
advised to stop Lasix Farxiga and losartan for the upcoming cath he gained 4 pounds.
Chest x-ray reviewed by me-pulmonary edema
Echo 07/26/2024-moderately dilated LV with moderately reduced systolic function. EF 30 to 35%. Inferior, anterior, anterolateral hypokinesis. Stage II diastolic dysfunction. Mild MR. Moderate . Pulmonary artery pressure of 38 mmHg.
Awake alert
Cardiovascular system S1-S2 regular, systolic murmur at aortic area
Chest few rales at bases
Abdomen soft and nontender
Bilateral pedal edema better
# Non-STEMI
ASCVD
Troponin trending down
Continue aspirin, heparin, beta-sandie, statin
High risk PCI was planned for 08/16/2024
Cath is planned after adequate diuresis -tomorrow
# Acute on chronic HFrEF
Was advised to stop diuretics as OP?
Continue Lasix 80 mg IV twice daily
Intake output charting, daily weights
weight better
Echo 07/26/2024 with EF 30 to 35%
# Acute kidney injury on CKD stage III
Hyperkalemia resolved
Normally creatinine is 2.0 now 2.6
Likely cardiorenal
Continue Lasix and follow creatinine
Hold metformin
Continue to hold Farxiga and losartan
Nephrology evaluation
# Anemia-likely secondary to chronic kidney disease
Iron deficiency noted
Added IV iron
# Hypertension-continue Coreg
Hold off on losartan
# Poorly controlled diabetes Hb A1C-6.9
Hold Farxiga
Continue Lantus-uses 14 units at home
Hold metformin with elevated creatinine
Accu-Cheks and sliding scale coverage
# Hyperlipidemia-continue Zetia and statin
# History of carotid endarterectomy
# Sleep apnea-continue PAP therapy
# Obesity with a BMI of 37
# History of prostate cancer
# DVT prophylaxis-IV heparin
# Full code
Discussed with nursing at bedside
D/W and DIL at bed side
Discussed with cardiology
Part of this note was created using voice recognition system. Occasional wrong word or��sound alike� substitutions may have inadvertently occurred due to the inherent limitations of voice recognition software. If noted kindly bring it to my
attention for correction.
Anticipated Discharge: 24 - 48 hours
Subjective/Interval History
-
Date of Service: August 11, 2024
Objective Data
-
Labs:
Laboratory Results
08/11/24
04:18
WBC 8.0
Hgb 7.8 L
Hct 22.7 L
Plt Count 205
APTT 84.5 H
Sodium 133 L
Potassium 4.1
Chloride 104
Carbon Dioxide 21 L
BUN 70 H
Creatinine 2.6 H
Glucose 153 H
Calcium 9.1
Vital Signs:
Vital Signs
Temp Pulse Resp BP Pulse Ox
97.6 F 58 18 117/64 99
08/11/24 11:40 08/11/24 11:40 08/11/24 11:40 08/11/24 09:07 08/11/24 11:40
I&O
08/10/24 08/11/24 08/12/24
06:59 06:59 06:59
Intake Total 710 / 710 710 / 710
Output Total 1750 / 1750 4200 / 4200 350 / 350
Balance -1040 / -1040 -3490 / -3490 -350 / -350
[2024-08-11 14:21] LABS: Glucose - Point of Care 257 mg/dl (70-99)
[2024-08-11] MEDS: FERRLECIT 110 MG IV (15:55)
[2024-08-11 17:06] LABS: Glucose - Point of Care 280 mg/dl (70-99)
[2024-08-11] MEDS: ZETIA 10 MG PO (17:17)
[2024-08-11] MEDS: CRESTOR 40 MG PO (17:17)
[2024-08-11] MEDS: NOVOLOG FLEXPEN-MODERATE RESISTANCE 5 UNITS SC (18:03)
[2024-08-11 22:35] LABS: Glucose - Point of Care 228 mg/dl (70-99)
[2024-08-11] MEDS: LANTUS 0.14 UNITS SC (22:40)
--- NOTE | 2024-08-11 22:50 | PTCARENOTE ---
Received patient at change of shift. SR with a first degree HB on the monitor, HR in the 60s. Heparin running as per order, see documentation. NPO at midnight. No complaints from pt at this time, call small within reach.
[2024-08-12] VITALS (9 sets, daily range): BP systolic 94–131; BP diastolic 48–68; BMI 35.7
[2024-08-12] MEDS: HEPARIN 25000 UNITS/250 ML IV (01:40)
[2024-08-12 02:37] LABS: Blood Urea Nitrogen 70 mg/dl (9-20); Calcium 8.9 mg/dl (8.4-10.2); Carbon Dioxide 21 mmol/L (22-30); Chloride 104 mmol/L (98-107); Estimated Creatinine Clearance 26 ml/min; Glucose 169 mg/dl (70-99); Potassium 3.8 mmol/L (3.5-5.1); Sodium 135 mmol/L (135-145); eGFR 23.73
[2024-08-12 02:53] LABS: Transferrin 195 mg/dL (200-360)
[2024-08-12 07:20] LABS: Glucose - Point of Care 184 mg/dl (70-99)
--- NOTE | 2024-08-12 07:48 | W.PN.HOSP.TC ---
Today's Communication/Plan
-
Cath today
CBC is still pending
Assessment / Plan
Assessment / Plan
84-year-old with shortness of breath
Symptoms for 2 weeks with palpitations and fatigue cardiac cath 07/26/2024 revealed multivessel disease with elevated filling pressures Lasix was increased staged PCI of the left circumflex and ramus was planned for 08/16/2024. About a week ago he was
advised to stop Lasix Farxiga and losartan for the upcoming cath he gained 4 pounds.
Chest x-ray reviewed by me-pulmonary edema
Echo 07/26/2024-moderately dilated LV with moderately reduced systolic function. EF 30 to 35%. Inferior, anterior, anterolateral hypokinesis. Stage II diastolic dysfunction. Mild MR. Moderate . Pulmonary artery pressure of 38 mmHg.
Awake alert
Cardiovascular system S1-S2 regular, systolic murmur at aortic area
Chest CTA
Abdomen soft and nontender
No pedam edema
# Non-STEMI
ASCVD
Troponin trending down
Continue aspirin, heparin, beta-sandie, statin
High risk PCI was planned for 08/16/2024
Cath is planned today
# Acute on chronic HFrEF
Was advised to stop diuretics as OP?
Continue Lasix 80 mg IV twice daily
Intake output charting, daily weights
weight better and less than his 'dry weight'
Echo 07/26/2024 with EF 30 to 35%
# Acute kidney injury on CKD stage III
Hyperkalemia resolved
Normally creatinine is 2.0 now 2.6 ( stable)
Likely cardiorenal
Follow creatinine
Hold metformin
Continue to hold Farxiga and losartan
Nephrology evaluation
# Anemia-likely secondary to chronic kidney disease
Iron deficiency noted
Added IV iron
# Hypertension-continue Coreg
Hold off on losartan
# Poorly controlled diabetes Hb A1C-6.9
Hold Farxiga
Lantus-uses 14 units at home, increase to 15 units
Hold metformin with elevated creatinine
Accu-Cheks and sliding scale coverage
# Hyperlipidemia-continue Zetia and statin
# History of carotid endarterectomy
# Sleep apnea-continue PAP therapy
# Obesity with a BMI of 37
# History of prostate cancer
# DVT prophylaxis-IV heparin
# Full code
Discussed with nursing
Part of this note was created using voice recognition system. Occasional wrong word or��sound alike� substitutions may have inadvertently occurred due to the inherent limitations of voice recognition software. If noted kindly bring it to my
attention for correction.
Anticipated Discharge: Within 24 hours
Subjective/Interval History
-
Date of Service: August 12, 2024
Objective Data
-
Labs:
Laboratory Results
08/12/24
01:58
APTT 99.0 H
Sodium 135
Potassium 3.8
Chloride 104
Carbon Dioxide 21 L
BUN 70 H
Creatinine 2.6 H
Glucose 169 H
Calcium 8.9
Vital Signs:
Vital Signs
Temp Pulse Resp BP Pulse Ox
98.2 F 58 18 109/51 98
08/12/24 07:08 08/12/24 07:08 08/12/24 07:08 08/11/24 19:48 08/12/24 01:52
I&O
08/11/24 08/12/24 08/13/24
06:59 06:59 06:59
Intake Total 710 / 710 250 / 250
Output Total 4200 / 4200 3775 / 3775
Balance -3490 / -3490 -3525 / -3525
[2024-08-12] MEDS: LASIX 80 MG IV ×2 (07:52→18:09)
[2024-08-12] MEDS: LOW STRENGTH ASPIRIN 81 MG PO (07:52)
[2024-08-12] MEDS: NOVOLOG FLEXPEN-MODERATE RESISTANCE 1 UNITS SC ×3 (07:52→18:10)
[2024-08-12] MEDS: COREG 25 MG PO ×2 (07:53→19:44)
--- NOTE | 2024-08-12 08:31 | W.PN.CD ---
Today's Communication / Plan
-
-PCWP (on 07/26/2024) = 30 mmHg at 113.9 kg.
-Creatinine remains 2.6; proBNP 13,200 on admission (08/09/2024).
-Currently on Lasix 80 mg IV BID.
-Will undergo repeat right heart catheterization today to reassess volume status to see whether diuretic needs to be pushed further versus reduced in order to improve renal function (so that patient can eventually undergo left heart
catheterization); this will help us determine whether patient is on the Starling curve.
Impression / Plan
-
Zklpu-kz-odrpolo HFrEF/ICM (EF 30-35%):
-PCWP (on 07/26/2024) = 30 mmHg at 113.9 kg.
-Creatinine remains 2.6; proBNP 13,200 on admission (08/09/2024).
-Currently on Lasix 80 mg IV BID.
-Will undergo repeat right heart catheterization today to reassess volume status to see whether diuretic needs to be pushed further versus reduced in order to improve renal function (so that patient can eventually undergo left heart
catheterization); this will help us determine whether patient is on the Starling curve.
-CHF education, sodium/fluid restriction
-GDMT limited by renal function presently.
-Continue carvedilol.
Acute on CKD3:
-Dr. Anne is op [employer]
-Nephrology following
-RHC as above.
Abnormal troponin:
-no CP, EKG stable, trop trending down
-NSTEMI versus type II NH (in setting of anemia, hypoxia, renal dysfunction)
-continue IV heparin for now, which requires intensive monitoring
-Continue ASA, statin, BB
-Eventual LHC; timing as above.
CAD with multivessel CAD:
-plan was for high-risk PCI on 08/16/2024.
- Plan as above.
Anemia:
-IV iron added
Moderate :
- Continue to monitor over time by echo
Subjective:
No major events overnight. No cardiac complaints this a.m.
Data:
Echo 07/26/24: Moderately dilated LV with moderately reduced systolic function. LVEF is 30-35% by visual estimation. Inferior, anterior, and anterolateral hypokinesis; the apex appears akinetic. Stage II diastolic dysfunction. Mild mitral
regurgitation. Moderate aortic stenosis. Estimated pulmonary artery pressure of 38 mmHg.
Cardiac MRI 07/20/24: Dilated left ventricle. Myocardial wall thickening with hypokinesis involving the apical portion of the left ventricle as well as the inferoseptal distal mid left ventricle. There is also mild dyskinesis involving the apical
portion. Postcontrast enhancement in these regions, mainly subendocardial. Findings are suggestive of previous infarction/ischemic scarring. Calculated left ventricular ejection fraction of 32%. No MR evidence for a diffuse infiltrative process of
the left ventricular myocardium. Normal MR appearance of the right ventricle.
Cath 07/26/24: Right dominant circulation with chronic total occlusion of the ostial RCA, nonintervenable, diffuse disease in the distal/apical LAD, a 70% lesion in the proximal ramus followed by an 80% lesion in the mid ramus, immediately proximal to
the bifurcation point and an 80% lesion in the proximal/ostial circumflex. Severely elevated filling pressures (LVEDP = 27 mmHg, PCWP = 30 mmHg at 113.9 kg) with evidence of diastolic dysfunction (A wave to 37 mmHg) and either severe mitral
regurgitation or a noncompliant left atrium (V wave to 52 mmHg). Mild/moderate postcapillary pulmonary hypertension (mean PA = 41 mmHg, PCWP = 30 mmHg, cardiac output = 5.93 L/min, PVR = 1.85 Wood units), WHO group 2. Mild to moderate aortic valve
stenosis on pullback (mean AV gradient = 25.7 mmHg, NICKIE = 1.41 cm�). Significant anemia which may be affecting symptom burden. Diuresis, then plan for staged, high risk PCI of the circumflex and ramus intermedius barring surgical mitral valve
disease at the time of echocardiogram. I will plan to bring the patient back for PCI in approximately 1 month to allow him to compensate from his heart failure standpoint and fulfill his ordered testing.
Physical Exam
Vital Signs/Labs
Vital Signs
Temp Pulse Resp BP Pulse Ox
98.2 F 58 18 110/67 98
08/12/24 07:08 08/12/24 08:15 08/12/24 07:08 08/12/24 07:11 08/12/24 01:52
08/11/24 08/12/24 08/13/24
06:59 06:59 06:59
Actual Weight 111.4 kg 109.7 kg
08/11/24 04:18
08/12/24 01:58
APTT 99.0 Sec (23.4-35.0) H 08/12/24 01:58
Triglycerides 88 mg/dl (10-149) 08/10/24 03:04
LDL Cholesterol, Calc 23 mg/dl 08/10/24 03:04
VLDL Cholesterol, Calc 17 mg/dl (0-30) 08/10/24 03:04
HDL Cholesterol 34 mg/dl 08/10/24 03:04
08/09/24
03:26
Fdj-D-Ieslnimasad Pept [id number]
LAB Results
08/09/24 08/09/24 08/09/24
13:20 18:39 20:00
Troponin I 4.020 H* Cancelled 4.230 H*
08/10/24
03:06
Troponin I 3.900 H*
Physical Exam
Constitutional: No acute distress and Comfortable
EENT: Anicteric
Cardiovascular: Rhythm & rate is regular, Pedal edema is absent, Systolic murmur present (2/6 high-pitched systolic murmur) and S1S2 is normal
Respiratory: Respiratory effort normal and Rhonchi Absent (Scant bibasilar rhonchi)
GI: Soft
Neuro/Psych: AO x 3
Other: Skin (Warm, dry, intact)
Data Reviewed
-
Date of Service: August 12, 2024
EKG: Tracing Personally Visualized and interpreted (Telemetry: Sinus rhythm)
Echo: Report Reviewed by me (LVEF 30-35%; moderate .)
Labs: Labs Reviewed by me
--- NOTE | 2024-08-12 08:33 | PTCARENOTE ---
Rec'd pt at handoff. Tele- SR w/ 1st deg and BBBC. Pt has no complaints pain/discomfort/sob this AM. Dr. Adorno at bedside. Pt aware of NPO status for R heart cath today.
--- NOTE | 2024-08-12 09:11 | W.PN.NEPH.PH ---
Today's Communication / Plan
-
Maintain diuretics
creatinine stable at 2.6
Assessment/Plan
-
IMP:
Non-STEMI
ASCVD
Acute on chronic HFrEF
Echo 07/26/2024 with EF 30 to 35%, mod
Acute kidney injury on CKD stage IIIb baseline cr 2, follow Dr Myers
Hyperkalemia
Anemia
Hypertension
Poorly controlled diabetes
Hyperlipidemia
History of carotid endarterectomy
Sleep apnea
Obesity
hypervolemic hyponatremia
PCWP 30 on 07/26 with wt 113.9kg
Plan:
A/w sob, recnet diagnosis of MVD and need of High risk PCI
SERA-cr up at 2.6 no change, checked U fena, highly suspect it is cardiorenal, possible RHC today
lasix at 80mg BID per cards, symp seem to get better , urine output in excess of 3500 cc, weights down another 2 kg
follow bladder scan
would wait for cr return to baseline prior LHC
maintain FR 48 ounces/day
bp stable, continue to hold ARB
follow h/h, fe def noted, on iV fe course per primary
follow daily wts and labs
avoid nephrotoxins
mild hypervolemic hyponatremia-stable
d/w pt and family
d/w cards
-
-
Date of Service: August 12, 2024
CC / HPI / ROS
-
Chief Complaint:
Sera with CKD
History of Present Illness:
cr no change at 2.6, k normal
sodium low and stable at 135
troponin 3.9
Bp stable
hgb low 7.8 ,on iv heparin gtt
Review of Systems:
sob improving , can not lay flat -chronically
wt is down
no cp
Labs
-
Labs:
WBC 8.0 10^3/uL (4.8-10.8) 08/11/24 04:18
RBC 2.39 10^6/uL (4.70-6.10) L 08/11/24 04:18
Hgb 7.8 g/dL (13.0-18.0) L 08/11/24 04:18
Hct 22.7 % (39.0-52.0) L 08/11/24 04:18
Plt Count 205 10^3/uL (130-400) 08/11/24 04:18
Sodium 135 mmol/L (135-145) 08/12/24 01:58
Potassium 3.8 mmol/L (3.5-5.1) 08/12/24 01:58
Chloride 104 mmol/L (98-107) 08/12/24 01:58
Carbon Dioxide 21 mmol/L (22-30) L 08/12/24 01:58
BUN 70 mg/dl (9-20) H 08/12/24 01:58
Creatinine 2.6 mg/dL (0.7-1.3) H 08/12/24 01:58
eGFR 23.73 08/12/24 01:58
Glucose 169 mg/dl (70-99) H 08/12/24 01:58
Calcium 8.9 mg/dl (8.4-10.2) 08/12/24 01:58
Akv-M-Yijqubpymwa Pept 79040 pg/ml 08/09/24 03:26
Albumin 3.2 g/dl (3.5-5.0) L 08/10/24 03:04
Physical Exam
-
Vital Signs:
Vital Signs
Temp Pulse Resp BP Pulse Ox
98.2 F 58 18 110/67 98
08/12/24 07:08 08/12/24 08:15 08/12/24 07:08 08/12/24 07:11 08/12/24 01:52
Cardiovascular:: Regular rate and rhythm
Respiratory:: Bilateral: Coarse and Bilateral: Rales
Lung Excursion:: Normal
Abdomen:: Nontender and Soft
Extremity Edema:: +1: Bilateral:
Zavala Catheter: No
[2024-08-12 12:42] LABS: Glucose - Point of Care 196 mg/dl (70-99)
[2024-08-12] MEDS: FERRLECIT 110 MG IV (15:18)
--- NOTE | 2024-08-12 17:53 | ITS.CL.CATH ---
Clinical Nurse Reviewer - Catheterization
Cardiac Catheterization
Procedure Report:
RIGHT HEART CATHETERIZATION
Date of Procedure: 08/12/2024
Referring: Charlie Adorno M.D.
INDICATION: Acute on chronic kidney failure, evaluation of volume status.
ACCESS:
5 Turkish right antecubital vein vein using a previously placed IV.
CATHETERS:
5 Turkish balloon.
PROCEDURE:
An IV was placed by the nursing staff in the right antecubital fossa. The patient was prepped and draped in standard sterile fashion, including copious cleansing of the IV and IV site. The area around the IV was anesthetized with 1% lidocaine. A 5
Turkish sheath was inserted into the basilic vein. A 5 Turkish balloon with catheter was advanced through the sheath into the superior vena cava. An SVC oxygen saturation was drawn. The balloon wedge catheter was advanced into the pulmonary artery and
a pulmonary artery oxygen saturation was drawn. Arterial oxygen saturation was assumed from pulse oximetry. Cardiac output was calculated using the Xander equation. The PA, wedge, RV and RA pressures were measured on pullback. The balloon wedge
catheter was removed. The 5 Turkish sheath was removed and manual pressure was held for hemostasis.
Weight (kg): 109.3
PA (s/d/x mmHg): 45/23/30
PCWP (a/v/x mmHg): 29/28/22
RV (s/x mmHg): 45/14
RA (a/v/x mmHg): 16/16/15
SVC SvO2 (%): 54.7
IVC SvO2 (%): Not obtained.
RA SvO2 (%): Not obtained.
RV SvO2 (%): Not obtained.
PA SvO2 (%): 57.1
SaO2 (%): 95.0 (assumed)
Hbg (g/dL): 8.2
Xander
CO (liters/minute): 6.05
CI (liters/minute/m2): 2.71
Thermodilution
CO (liters/minute): Not performed.
CI (liters/minute/m2): Not performed.
TPG (mmHg): 8
PVR (Haas Units): 1.32
AVO2 Difference (Volume %): 4.23
Radiation (mGy): 17.31
DAP (cm2.Gy): 2.4380
Fluoroscopy time (minutes): 0.7
CONCLUSION:
1. Moderately elevated filling pressures (PCWP = 22 mmHg at 109.3 kg).
2. Preserved cardiac function (cardiac index = 2.71 L/min/m�).
RECOMMENDATIONS:
1. Expectant management after right heart catheterization via right antecubital approach.
2. Continue diuresis as the patient does have moderately elevated filling pressures. Renal failure does not appear to be a prerenal/dehydration issue.
Copy to: Charlie Adorno M.D., Wyatt Boyd D.O., Kim Mcarthur M.D.
Abhi Sutton D.O., [facility], FACP
[2024-08-12 18:05] LABS: Glucose - Point of Care 175 mg/dl (70-99)
[2024-08-12] MEDS: ZETIA 10 MG PO (18:10)
[2024-08-12] MEDS: CRESTOR 40 MG PO (18:10)
[2024-08-12 22:47] LABS: Glucose - Point of Care 304 mg/dl (70-99)
[2024-08-12] MEDS: LANTUS 0.15 UNITS SC (22:47)
--- NOTE | 2024-08-12 23:38 | PTCARENOTE ---
Received patient at change of shift. SR with a first degree HB and BBB on the monitor, HR in the 60s. R brachial dressing CDI. No complaints from pt at this time, call small within reach.
[2024-08-13] MEDS: HEPARIN 25000 UNITS/250 ML IV (02:53)
[2024-08-13 03:01] VITALS: BP 114/58
[2024-08-13 03:12] VITALS: BMI 35.0
[2024-08-13 03:41] LABS: Hematocrit 24.7 % (39.0-52.0); Hemoglobin 8.6 g/dL (13.0-18.0); Mean Corp Hgb Conc. 34.8 g/dL (33.0-37.0); Mean Corpuscular Hgb 32.1 pg (27.0-31.0); Mean Corpuscular Volume 92.2 fL (80.0-94.0); Mean Platelet Volume 9.4 fL (7.4-10.4); Platelet Count 241 10^3/uL (130-400); Red Blood Cell Count 2.68 10^6/uL (4.70-6.10); Red Cell Dist. Width 12.8 % (11.5-14.5); White Blood Cell Count 8.1 10^3/uL (4.8-10.8)
[2024-08-13 03:59] LABS: Blood Urea Nitrogen 67 mg/dl (9-20); Calcium 9.3 mg/dl (8.4-10.2); Carbon Dioxide 22 mmol/L (22-30); Chloride 103 mmol/L (98-107); Estimated Creatinine Clearance 28 ml/min; Glucose 190 mg/dl (70-99); Potassium 3.7 mmol/L (3.5-5.1); Sodium 134 mmol/L (135-145); eGFR 26.12
[2024-08-13 06:03] LABS: APTT 85.7 Sec (23.4-35.0)
[2024-08-13 07:37] VITALS: BP 110/53
[2024-08-13 08:02] LABS: Glucose - Point of Care 189 mg/dl (70-99)
[2024-08-13] MEDS: NOVOLOG FLEXPEN-MODERATE RESISTANCE 1 UNITS SC (08:16)
[2024-08-13] MEDS: LASIX 80 MG IV ×2 (08:17→17:30)
[2024-08-13] MEDS: LOW STRENGTH ASPIRIN 81 MG PO (08:17)
[2024-08-13] MEDS: COREG 25 MG PO ×2 (08:17→19:39)
--- NOTE | 2024-08-13 08:58 | W.PN.CD ---
Today's Communication / Plan
-
Cr 2.4 this AM
Cont IV diuresis
Impression / Plan
-
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
-RHC: CONCLUSION:
1. Moderately elevated filling pressures (PCWP = 22 mmHg at 109.3 kg).
2. Preserved cardiac function (cardiac index = 2.71 L/min/m�).
-Creatinine remains 2.4 August 13
-Currently on Lasix 80 mg IV BID.
-CHF education, sodium/fluid restriction
-GDMT limited by renal function presently.
-Continue carvedilol.
- likely Cath FridayAugust 16
Acute on CKD3:
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
-Nephrology following
-RHC as above.
Abnormal troponin:
-no CP, EKG stable, trop trending down
-NSTEMI versus type II MD (in setting of anemia, hypoxia, renal dysfunction)
-continue IV heparin for now, which requires intensive monitoring
-Continue ASA, statin, BB
-Eventual LHC; timing as above.
CAD with multivessel CAD:
-plan was for high-risk PCI on 08/16/2024.
- Plan as above.
Anemia:
-IV iron added
Moderate :
- Continue to monitor over time by echo
Subjective:
No major events overnight. No cardiac complaints this a.m.
Data:
Echo 07/26/24: Moderately dilated LV with moderately reduced systolic function. LVEF is 30-35% by visual estimation. Inferior, anterior, and anterolateral hypokinesis; the apex appears akinetic. Stage II diastolic dysfunction. Mild mitral
regurgitation. Moderate aortic stenosis. Estimated pulmonary artery pressure of 38 mmHg.
Cardiac MRI 07/20/24: Dilated left ventricle. Myocardial wall thickening with hypokinesis involving the apical portion of the left ventricle as well as the inferoseptal distal mid left ventricle. There is also mild dyskinesis involving the apical
portion. Postcontrast enhancement in these regions, mainly subendocardial. Findings are suggestive of previous infarction/ischemic scarring. Calculated left ventricular ejection fraction of 32%. No MR evidence for a diffuse infiltrative process of
the left ventricular myocardium. Normal MR appearance of the right ventricle.
Cath 07/26/24: Right dominant circulation with chronic total occlusion of the ostial RCA, nonintervenable, diffuse disease in the distal/apical LAD, a 70% lesion in the proximal ramus followed by an 80% lesion in the mid ramus, immediately proximal to
the bifurcation point and an 80% lesion in the proximal/ostial circumflex. Severely elevated filling pressures (LVEDP = 27 mmHg, PCWP = 30 mmHg at 113.9 kg) with evidence of diastolic dysfunction (A wave to 37 mmHg) and either severe mitral
regurgitation or a noncompliant left atrium (V wave to 52 mmHg). Mild/moderate postcapillary pulmonary hypertension (mean PA = 41 mmHg, PCWP = 30 mmHg, cardiac output = 5.93 L/min, PVR = 1.85 Wood units), WHO group 2. Mild to moderate aortic valve
stenosis on pullback (mean AV gradient = 25.7 mmHg, NICKIE = 1.41 cm�). Significant anemia which may be affecting symptom burden. Diuresis, then plan for staged, high risk PCI of the circumflex and ramus intermedius barring surgical mitral valve
disease at the time of echocardiogram. I will plan to bring the patient back for PCI in approximately 1 month to allow him to compensate from his heart failure standpoint and fulfill his ordered testing.
Physical Exam
Vital Signs/Labs
Vital Signs
Temp Pulse Resp BP Pulse Ox
97.9 F 51 20 114/58 94
08/13/24 07:37 08/13/24 06:15 08/13/24 07:37 08/13/24 03:01 08/13/24 07:37
08/12/24 08/13/24 08/14/24
06:59 06:59 06:59
Actual Weight 241 lb 13.553 oz 236 lb 15.951 oz
08/13/24 03:07
08/13/24 03:07
APTT 85.7 Sec (23.4-35.0) H 08/13/24 05:17
Triglycerides 88 mg/dl (10-149) 08/10/24 03:04
LDL Cholesterol, Calc 23 mg/dl 08/10/24 03:04
VLDL Cholesterol, Calc 17 mg/dl (0-30) 08/10/24 03:04
HDL Cholesterol 34 mg/dl 08/10/24 03:04
08/09/24
03:26
Gxo-B-Vsibvuarqoy Pept [id number]
Physical Exam
Constitutional: No acute distress and Comfortable
EENT: Anicteric
Cardiovascular: Rhythm & rate is regular and Pedal edema is absent
Respiratory: Respiratory effort normal and Lungs clear to auscul.
GI: Soft
Neuro/Psych: Alert and Oriented
Data Reviewed
-
Date of Service: August 13, 2024
Medical Decision Making: Reviewed Test Results (rhc)
EKG: Tracing Personally Visualized and interpreted (sr)
Labs: Labs Reviewed by me
--- NOTE | 2024-08-13 09:29 | PTCARENOTE ---
Assumed care at 0700. Patient AO x3. Denies pain. SR with 1st degree HB, BBB, +1 pitting leg edema. Right brachial dressing cdi. Heparin gtt at 1000 units/hr. Using call small for assistance
--- NOTE | 2024-08-13 10:37 | W.PN.HOSP.TC ---
Today's Communication/Plan
-
Add Novolog
Cath pans per cardiology
Continue Diuresis
Assessment / Plan
Assessment / Plan
84-year-old with shortness of breath
Symptoms for 2 weeks with palpitations and fatigue cardiac cath 07/26/2024 revealed multivessel disease with elevated filling pressures Lasix was increased staged PCI of the left circumflex and ramus was planned for 08/16/2024. About a week ago he was
advised to stop Lasix Farxiga and losartan for the upcoming cath he gained 4 pounds.
Chest x-ray reviewed by me-pulmonary edema
Echo 07/26/2024-moderately dilated LV with moderately reduced systolic function. EF 30 to 35%. Inferior, anterior, anterolateral hypokinesis. Stage II diastolic dysfunction. Mild MR. Moderate . Pulmonary artery pressure of 38 mmHg.
Status post right heart cath on 08/13/2024-wedge pressure 22 mmHg
Awake alert
Cardiovascular system S1-S2 regular, systolic murmur at aortic area
Chest CTA
Abdomen soft and nontender
No edema
# Non-STEMI
ASCVD
Troponin trending down
Continue aspirin, heparin, beta-sandie, statin
High risk PCI was planned for 08/16/2024
Right heart cath on 08/12/2024 with elevated wedge pressure 22 mmHg
Left heart cath is plans per cards
# Acute on chronic HFrEF
Was advised to stop diuretics as OP?
Continue Lasix 80 mg IV twice daily
Intake output charting, daily weights
weight better and less than his 'dry weight'
Echo 07/26/2024 with EF 30 to 35%
# Acute kidney injury on CKD stage III
Hyperkalemia resolved
Normally creatinine is 2.0 ->2.6 -> 2.4
Likely cardiorenal
Follow creatinine
Hold metformin
Continue to hold Farxiga and losartan
Nephrology evaluation
# Anemia-likely secondary to chronic kidney disease
Iron deficiency noted
Added IV iron
# Hypertension-continue Coreg
Hold off on losartan
# Poorly controlled diabetes Hb A1C-6.9
Hold Farxiga
Lantus-uses 14 units at home, increase to 16 units
Add Novolog 2 AC
Hold metformin with elevated creatinine
Accu-Cheks and sliding scale coverage
# Hyperlipidemia-continue Zetia and statin
# History of carotid endarterectomy
# Sleep apnea-continue PAP therapy
# Obesity with a BMI of 37
# History of prostate cancer
# DVT prophylaxis-IV heparin
# Full code
Discussed with nursing
Part of this note was created using voice recognition system. Occasional wrong word or��sound alike� substitutions may have inadvertently occurred due to the inherent limitations of voice recognition software. If noted kindly bring it to my
attention for correction.
Anticipated Discharge: 24 - 48 hours
Subjective/Interval History
-
Date of Service: August 13, 2024
Objective Data
-
Labs:
Laboratory Results
08/13/24 08/13/24
03:07 05:17
WBC 8.1
Hgb 8.6 L
Hct 24.7 L
Plt Count 241
APTT 85.7 H
Sodium 134 L
Potassium 3.7
Chloride 103
Carbon Dioxide 22
BUN 67 H
Creatinine 2.4 H
Glucose 190 H
Calcium 9.3
Vital Signs:
Vital Signs
Temp Pulse Resp BP Pulse Ox
97.9 F 51 20 114/58 94
08/13/24 07:37 08/13/24 06:15 08/13/24 07:37 08/13/24 03:01 08/13/24 07:37
I&O
08/12/24 08/13/24 08/14/24
06:59 06:59 06:59
Intake Total 250 / 250
Output Total 3775 / 3775 1375 / 1375 300 / 300
Balance -3525 / -3525 -1375 / -1375 -300 / -300
[2024-08-13 11:56] VITALS: BP 108/58
--- NOTE | 2024-08-13 12:37 | W.PN.NEPH.PH ---
Today's Communication / Plan
-
cont diuresis, follow labs
Assessment/Plan
-
IMP:
Non-STEMI
ASCVD
Acute on chronic HFrEF
Echo 07/26/2024 with EF 30 to 35%, mod
Acute kidney injury on CKD stage IIIb baseline cr 2, follow Dr Myers
Hyperkalemia
Anemia
Hypertension
Poorly controlled diabetes
Hyperlipidemia
History of carotid endarterectomy
Sleep apnea
Obesity
hypervolemic hyponatremia
PCWP 30 on 07/26 with wt 113.9kg
Plan:
A/w sob, recent diagnosis of MVD and need of High risk PCI
SERA-slightly down to 2.4, highly suspect it is cardiorenal
RHC 08/12 shows PCWP 22 so will cont diuresis lasix 80mg BID
would wait for cr return to baseline prior [facility], tentative 08/16
maintain FR 48 ounces/day
bp stable, continue to hold ARB
stable h/h, fe def noted, on iV fe course per primary
follow daily wts and labs
avoid nephrotoxins
mild hypervolemic hyponatremia-stable
d/w pt and family
-
-
Date of Service: August 13, 2024
CC / HPI / ROS
-
Chief Complaint:
Sera with CKD
History of Present Illness:
cr better at 2.4, k normal
sodium low and stable at 134
Bp stable
hgb lup at 8.6 ,on iv heparin gtt
Review of Systems:
sob improving , can not lay flat -chronically
wt is down
no cp
Labs
-
Labs:
WBC 8.1 10^3/uL (4.8-10.8) 08/13/24 03:07
RBC 2.68 10^6/uL (4.70-6.10) L 08/13/24 03:07
Hgb 8.6 g/dL (13.0-18.0) L 08/13/24 03:07
Hct 24.7 % (39.0-52.0) L 08/13/24 03:07
Plt Count 241 10^3/uL (130-400) 08/13/24 03:07
Sodium 134 mmol/L (135-145) L 08/13/24 03:07
Potassium 3.7 mmol/L (3.5-5.1) 08/13/24 03:07
Chloride 103 mmol/L (98-107) 08/13/24 03:07
Carbon Dioxide 22 mmol/L (22-30) 08/13/24 03:07
BUN 67 mg/dl (9-20) H 08/13/24 03:07
Creatinine 2.4 mg/dL (0.7-1.3) H 08/13/24 03:07
eGFR 26.12 08/13/24 03:07
Glucose 190 mg/dl (70-99) H 08/13/24 03:07
Calcium 9.3 mg/dl (8.4-10.2) 08/13/24 03:07
Tpm-K-Nmapjkbtocf Pept 17941 pg/ml 08/09/24 03:26
Albumin 3.2 g/dl (3.5-5.0) L 08/10/24 03:04
Physical Exam
-
Vital Signs:
Vital Signs
Temp Pulse Resp BP Pulse Ox
97.4 F 51 20 114/58 96
08/13/24 11:55 08/13/24 06:15 08/13/24 11:55 08/13/24 03:01 08/13/24 11:55
Cardiovascular:: Regular rate and rhythm
Respiratory:: Bilateral: CTA
Lung Excursion:: Normal
Abdomen:: Nontender and Soft
Extremity Edema:: None: Bilateral: (trace)
Lucas Catheter: No
[2024-08-13 12:58] LABS: Glucose - Point of Care 352 mg/dl (70-99)
[2024-08-13] MEDS: NOVOLOG FLEXPEN 2 UNITS SC ×2 (13:25→18:16)
[2024-08-13] MEDS: NOVOLOG FLEXPEN-MODERATE RESISTANCE 7 UNITS SC (13:25)
[2024-08-13 15:15] VITALS: BP 105/59
--- NOTE | 2024-08-13 15:15 | CM ---
Reviewed chart. Met with Mr. Mcmullen to review discharge plans. He states he is feeling better. We reviewed [facility]. At this time he is declining [facility] Services. He states his spouse will be there to assist in his care if needed. He also states
his children and grandchildren also reside nearby and are supportive. Prior to admission he resides with his spouse in a two story home with three steps to enter. He states the main bedroom and full bathroom are on the first floor. Prior to
admission he ambulates with a single point cane in the home and uses a walking stick in the community. He has a walker, single point cane, walking stick and CPAP Machine at home. He has a prescription plan and uses [facility] mail order and [facility] when needed. Medical work-up in progress. The discharge plan is to return home with his spouse when medically stable.
[2024-08-13] MEDS: FERRLECIT 110 MG IV (15:26)
[2024-08-13 17:16] LABS: Glucose - Point of Care 291 mg/dl (70-99)
[2024-08-13] MEDS: ZETIA 10 MG PO (18:16)
[2024-08-13] MEDS: CRESTOR 40 MG PO (18:16)
[2024-08-13] MEDS: NOVOLOG FLEXPEN-MODERATE RESISTANCE 5 UNITS SC (18:16)
[2024-08-13 18:46] VITALS: BP 104/52
--- NOTE | 2024-08-13 20:34 | PTCARENOTE ---
Received patient at change of shift. SR with a first degree and a BBB on the monitor, HR in the 60s. Heparin running as per protocol, see documentation. R brachial dressing CDI. No complaints from pt at this time, call small within reach.
[2024-08-13 21:31] LABS: Glucose - Point of Care 205 mg/dl (70-99)
[2024-08-13] MEDS: LANTUS 0.16 UNITS SC (21:55)
[2024-08-13 21:58] VITALS: BP 110/59
[2024-08-14 02:30] VITALS: BP 98/63; BMI 35.0
[2024-08-14 03:05] LABS: APTT 106.9 Sec (23.4-35.0)
[2024-08-14 03:17] LABS: Blood Urea Nitrogen 75 mg/dl (9-20); Calcium 9.1 mg/dl (8.4-10.2); Carbon Dioxide 22 mmol/L (22-30); Chloride 103 mmol/L (98-107); Estimated Creatinine Clearance 25 ml/min; Glucose 172 mg/dl (70-99); Potassium 3.8 mmol/L (3.5-5.1); Sodium 135 mmol/L (135-145); eGFR 22.68
[2024-08-14] MEDS: HEPARIN 25000 UNITS/250 ML IV (05:06)
[2024-08-14 08:09] VITALS: BP 124/57
[2024-08-14 08:12] LABS: Glucose - Point of Care 197 mg/dl (70-99)
[2024-08-14] MEDS: COREG 25 MG PO ×2 (08:38→19:47)
[2024-08-14] MEDS: LOW STRENGTH ASPIRIN 81 MG PO (08:38)
[2024-08-14] MEDS: LASIX 80 MG IV (08:38)
--- NOTE | 2024-08-14 09:16 | W.PN.HOSP.TC ---
Today's Communication/Plan
-
Hold Lasix
BMP in the morning
Assessment / Plan
Assessment / Plan
84-year-old with shortness of breath
Symptoms for 2 weeks with palpitations and fatigue cardiac cath 07/26/2024 revealed multivessel disease with elevated filling pressures Lasix was increased staged PCI of the left circumflex and ramus was planned for 08/16/2024. About a week ago he was
advised to stop Lasix Farxiga and losartan for the upcoming cath he gained 4 pounds.
Chest x-ray reviewed by me-pulmonary edema
Echo 07/26/2024-moderately dilated LV with moderately reduced systolic function. EF 30 to 35%. Inferior, anterior, anterolateral hypokinesis. Stage II diastolic dysfunction. Mild MR. Moderate . Pulmonary artery pressure of 38 mmHg.
Status post right heart cath on 08/13/2024-wedge pressure 22 mmHg
Awake alert
Cardiovascular system S1-S2 regular, systolic murmur at aortic area
Chest CTA
Abdomen soft and nontender
No edema
# Non-STEMI
ASCVD
Troponin trended down
Continue aspirin, heparin, beta-sandie, statin
High risk PCI was planned for 08/16/2024
Right heart cath on 08/12/2024 with elevated wedge pressure 22 mmHg
Left heart cath is plans per cards
# Acute on chronic HFrEF
Was advised to stop diuretics as OP?
Hold off on further Lasix Lasix 80 mg IV twice daily with creatinine trending up
Intake output charting, daily weights
weight better and less than his 'dry weight'
Echo 07/26/2024 with EF 30 to 35%
# Acute kidney injury on CKD stage III
Hyperkalemia resolved
Creatinine OP 2.0 ->2.6 -> 2.4->2.7
Likely cardiorenal
Follow creatinine
Hold metformin
Continue to hold Farxiga and losartan
Nephrology evaluation
# Anemia-likely secondary to chronic kidney disease
Iron deficiency noted
Completed IV iron
# Hypertension-continue Coreg
Hold off on losartan
# Poorly controlled diabetes Hb A1C-6.9
Hold Farxiga
Lantus-uses 14 units at home, increase to 17 units
Add Novolog 3 AC
Hold metformin with elevated creatinine
Accu-Cheks and sliding scale coverage
# Hyperlipidemia-continue Zetia and statin
# History of carotid endarterectomy
# Sleep apnea-continue PAP therapy
# Obesity with a BMI of 37
# History of prostate cancer
# DVT prophylaxis- Heparin
# Full code
Discussed with nephrology and cardiology
Part of this note was created using voice recognition system. Occasional wrong word or��sound alike� substitutions may have inadvertently occurred due to the inherent limitations of voice recognition software. If noted kindly bring it to my
attention for correction.
Anticipated Discharge: > 48 hours
Subjective/Interval History
-
Date of Service: August 14, 2024
Objective Data
-
Labs:
Laboratory Results
08/14/24
02:38
APTT 106.9 H
Sodium 135
Potassium 3.8
Chloride 103
Carbon Dioxide 22
BUN 75 H
Creatinine 2.7 H
Glucose 172 H
Calcium 9.1
Vital Signs:
Vital Signs
Temp Pulse Resp BP Pulse Ox
98.0 F 57 20 124/57 96
08/14/24 08:13 08/14/24 08:38 08/14/24 08:13 08/14/24 08:38 08/14/24 08:13
I&O
08/13/24 08/14/24 08/15/24
06:59 06:59 06:59
Intake Total 600 / 600
Output Total 1375 / 1375 2675 / 2675
Balance -1375 / -1375 -2074 /
[2024-08-14] MEDS: NOVOLOG FLEXPEN-MODERATE RESISTANCE 1 UNITS SC (09:45)
[2024-08-14] MEDS: NOVOLOG FLEXPEN 2 UNITS SC (09:45)
--- NOTE | 2024-08-14 10:08 | PTCARENOTE ---
Pt is AOx3, no complaints of pain or discomfort. Blood sugars monitored. Heparin gtt infusing per protocol. SB on tele monitor, VSS. Call small within reach.
--- NOTE | 2024-08-14 10:39 | W.PN.NEPH.PH ---
Today's Communication / Plan
-
follow labs , hold lasix
Assessment/Plan
-
IMP:
Non-STEMI
ASCVD
Acute on chronic HFrEF
Echo 07/26/2024 with EF 30 to 35%, mod
Acute kidney injury on CKD stage IIIb baseline cr 2, follow Dr Myers
Hyperkalemia
Anemia
Hypertension
Poorly controlled diabetes
Hyperlipidemia
History of carotid endarterectomy
Sleep apnea
Obesity
hypervolemic hyponatremia
PCWP 30 on 07/26 with wt 113.9kg
Plan:
A/w sob, recent diagnosis of MVD and need of High risk PCI
SERA-cr up at 2.7, ok to hold lasix
[facility] 08/12 shows PCWP 22 , wt is down since
would wait for cr return to baseline prior [facility], tentative 08/16
maintain FR 48 ounces/day
bp stable, continue to hold ARB
stable h/h, fe def noted, on iV fe course per primary
follow daily wts and labs
avoid nephrotoxins
mild hypervolemic hyponatremia-improved
d/w pt and family
-
-
Date of Service: August 14, 2024
CC / HPI / ROS
-
Chief Complaint:
Sera with CKD
History of Present Illness:
cr up at 2.7, k normal
sodium better at 135
Bp stable
hgb lup at 8.6 ,on iv heparin gtt
Review of Systems:
no sob, can not lay flat -chronically
wt is down
no cp
Labs
-
Labs:
WBC 8.1 10^3/uL (4.8-10.8) 08/13/24 03:07
RBC 2.68 10^6/uL (4.70-6.10) L 08/13/24 03:07
Hgb 8.6 g/dL (13.0-18.0) L 08/13/24 03:07
Hct 24.7 % (39.0-52.0) L 08/13/24 03:07
Plt Count 241 10^3/uL (130-400) 08/13/24 03:07
Sodium 135 mmol/L (135-145) 08/14/24 02:38
Potassium 3.8 mmol/L (3.5-5.1) 08/14/24 02:38
Chloride 103 mmol/L (98-107) 08/14/24 02:38
Carbon Dioxide 22 mmol/L (22-30) 08/14/24 02:38
BUN 75 mg/dl (9-20) H 08/14/24 02:38
Creatinine 2.7 mg/dL (0.7-1.3) H 08/14/24 02:38
eGFR 22.68 08/14/24 02:38
Glucose 172 mg/dl (70-99) H 08/14/24 02:38
Calcium 9.1 mg/dl (8.4-10.2) 08/14/24 02:38
Brs-W-Lnhwotgeika Pept 52589 pg/ml 08/09/24 03:26
Albumin 3.2 g/dl (3.5-5.0) L 08/10/24 03:04
Physical Exam
-
Vital Signs:
Vital Signs
Temp Pulse Resp BP Pulse Ox
98.0 F 57 20 124/57 96
08/14/24 08:13 08/14/24 08:38 08/14/24 08:13 08/14/24 08:38 08/14/24 08:13
Cardiovascular:: Regular rate and rhythm
Respiratory:: Bilateral: CTA
Lung Excursion:: Normal
Abdomen:: Nontender and Soft
Extremity Edema:: None: Bilateral: (trace)
Zavala Catheter: No
[2024-08-14] MEDS: MIRALAX 17 GRAMS PO (12:14)
[2024-08-14] MEDS: SENOKOT 8.6 MG PO ×2 (12:14→22:23)
[2024-08-14 12:16] VITALS: BP 107/58
[2024-08-14 12:29] LABS: Glucose - Point of Care 309 mg/dl (70-99)
[2024-08-14] MEDS: NOVOLOG FLEXPEN 3 UNITS SC ×2 (13:43→17:36)
[2024-08-14] MEDS: NOVOLOG FLEXPEN-MODERATE RESISTANCE 7 UNITS SC (13:43)
--- NOTE | 2024-08-14 13:46 | W.PN.CD ---
Today's Communication / Plan
-
Hold lasix
monitor cr
Impression / Plan
-
Ebels-nn-wdphnjp HFrEF/ICM (EF 30-35%):
-RHC: CONCLUSION: 1. Moderately elevated filling pressures (PCWP = 22 mmHg at 109.3 kg). 2. Preserved cardiac function (cardiac index = 2.71 L/min/m�).
-Creatinine remains 2.7 August 14
-hold diuretics
-CHF education, sodium/fluid restriction
-GDMT limited by renal function presently.
-Continue carvedilol.
- likely Cath FridayAugust 16
Acute on CKD3:
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
-Nephrology following
-RHC as above.
Abnormal troponin:
-no CP, EKG stable, trop trending down
-NSTEMI versus type II MS (in setting of anemia, hypoxia, renal dysfunction)
-continue IV heparin for now, which requires intensive monitoring
-Continue ASA, statin, BB
-Eventual LHC; timing as above.
CAD with multivessel CAD:
-plan was for high-risk PCI on 08/16/2024.
- Plan as above.
Anemia:
-IV iron added
Moderate :
- Continue to monitor over time by echo
Subjective:
No major events overnight. No cardiac complaints this a.m.
Data:
Echo 07/26/24: Moderately dilated LV with moderately reduced systolic function. LVEF is 30-35% by visual estimation. Inferior, anterior, and anterolateral hypokinesis; the apex appears akinetic. Stage II diastolic dysfunction. Mild mitral
regurgitation. Moderate aortic stenosis. Estimated pulmonary artery pressure of 38 mmHg.
Cardiac MRI 07/20/24: Dilated left ventricle. Myocardial wall thickening with hypokinesis involving the apical portion of the left ventricle as well as the inferoseptal distal mid left ventricle. There is also mild dyskinesis involving the apical
portion. Postcontrast enhancement in these regions, mainly subendocardial. Findings are suggestive of previous infarction/ischemic scarring. Calculated left ventricular ejection fraction of 32%. No MR evidence for a diffuse infiltrative process of
the left ventricular myocardium. Normal MR appearance of the right ventricle.
Cath 07/26/24: Right dominant circulation with chronic total occlusion of the ostial RCA, nonintervenable, diffuse disease in the distal/apical LAD, a 70% lesion in the proximal ramus followed by an 80% lesion in the mid ramus, immediately proximal to
the bifurcation point and an 80% lesion in the proximal/ostial circumflex. Severely elevated filling pressures (LVEDP = 27 mmHg, PCWP = 30 mmHg at 113.9 kg) with evidence of diastolic dysfunction (A wave to 37 mmHg) and either severe mitral
regurgitation or a noncompliant left atrium (V wave to 52 mmHg). Mild/moderate postcapillary pulmonary hypertension (mean PA = 41 mmHg, PCWP = 30 mmHg, cardiac output = 5.93 L/min, PVR = 1.85 Wood units), WHO group 2. Mild to moderate aortic valve
stenosis on pullback (mean AV gradient = 25.7 mmHg, NICKIE = 1.41 cm�). Significant anemia which may be affecting symptom burden. Diuresis, then plan for staged, high risk PCI of the circumflex and ramus intermedius barring surgical mitral valve
disease at the time of echocardiogram. I will plan to bring the patient back for PCI in approximately 1 month to allow him to compensate from his heart failure standpoint and fulfill his ordered testing.
Physical Exam
Vital Signs/Labs
Vital Signs
Temp Pulse Resp BP Pulse Ox
97.7 F 57 20 124/57 97
08/14/24 12:18 08/14/24 08:38 08/14/24 12:18 08/14/24 08:38 08/14/24 12:18
08/13/24 08/14/24 08/15/24
06:59 06:59 06:59
Actual Weight 236 lb 15.951 oz 236 lb 8.896 oz
08/13/24 03:07
08/14/24 02:38
APTT 106.9 Sec (23.4-35.0) H 08/14/24 02:38
Triglycerides 88 mg/dl (10-149) 08/10/24 03:04
LDL Cholesterol, Calc 23 mg/dl 08/10/24 03:04
VLDL Cholesterol, Calc 17 mg/dl (0-30) 08/10/24 03:04
HDL Cholesterol 34 mg/dl 08/10/24 03:04
08/09/24
03:26
Rnh-F-Jngktvsvaco Pept [id number]
Physical Exam
Constitutional: No acute distress and Comfortable
EENT: Anicteric
Cardiovascular: Rhythm & rate is regular and Pedal edema present (trace)
Respiratory: Respiratory effort normal
GI: Soft
Neuro/Psych: Alert and Oriented
Data Reviewed
-
Date of Service: August 14, 2024
Medical Decision Making: Reviewed Test Results
EKG: Tracing Personally Visualized and interpreted (sr)
Echo: Report Reviewed by me
Labs: Labs Reviewed by me
[2024-08-14 15:34] VITALS: BP 105/53
[2024-08-14 17:36] LABS: Glucose - Point of Care 205 mg/dl (70-99)
[2024-08-14] MEDS: NOVOLOG FLEXPEN-MODERATE RESISTANCE 3 UNITS SC (17:36)
[2024-08-14] MEDS: ZETIA 10 MG PO (18:57)
[2024-08-14] MEDS: CRESTOR 40 MG PO (18:57)
[2024-08-14 19:44] VITALS: BP 116/64
[2024-08-14 22:16] LABS: Glucose - Point of Care 206 mg/dl (70-99)
[2024-08-14 22:21] VITALS: BP 102/73
[2024-08-14] MEDS: LANTUS 0.17 UNITS SC (22:23)
[2024-08-14] MEDS: COLACE 100 MG PO (22:23)
[2024-08-15] VITALS (7 sets, daily range): BP systolic 96–115; BP diastolic 48–67; BMI 35.0
[2024-08-15] MEDS: HEPARIN 25000 UNITS/250 ML IV (03:57)
[2024-08-15 04:33] LABS: Hemoglobin 8.4 g/dL (13.0-18.0); Mean Corp Hgb Conc. 33.6 g/dL (33.0-37.0); Mean Corpuscular Hgb 31.6 pg (27.0-31.0); Mean Platelet Volume 9.2 fL (7.4-10.4); Platelet Count 227 10^3/uL (130-400); Red Blood Cell Count 2.66 10^6/uL (4.70-6.10); Red Cell Dist. Width 12.9 % (11.5-14.5); White Blood Cell Count 11.3 10^3/uL (4.8-10.8)
[2024-08-15 04:42] LABS: APTT 78.2 Sec (23.4-35.0)
[2024-08-15 04:52] LABS: Blood Urea Nitrogen 75 mg/dl (9-20); Calcium 9.2 mg/dl (8.4-10.2); Carbon Dioxide 23 mmol/L (22-30); Chloride 103 mmol/L (98-107); Estimated Creatinine Clearance 26 ml/min; Glucose 158 mg/dl (70-99); Sodium 134 mmol/L (135-145); eGFR 23.73
--- NOTE | 2024-08-15 05:33 | PTCARENOTE ---
Pt. had no complaints of SOB or chest pain overnight, VSS, NSR-SB on the monitor. Heparin gtt infusing as per order. Right brachial cath site dressing CDI with no hematoma/edema. Urinating without difficulty. Weight the same this morning as
yesterday. Pt. is mindful of fluid restriction and importance of accurate I&O's.
[2024-08-15 07:45] LABS: Glucose - Point of Care 193 mg/dl (70-99)
[2024-08-15] MEDS: NOVOLOG FLEXPEN-MODERATE RESISTANCE 1 UNITS SC (08:40)
[2024-08-15] MEDS: NOVOLOG FLEXPEN 3 UNITS SC (08:40)
[2024-08-15] MEDS: COREG 25 MG PO ×2 (08:42→19:34)
[2024-08-15] MEDS: LOW STRENGTH ASPIRIN 81 MG PO (08:42)
[2024-08-15] MEDS: MIRALAX 17 GRAMS PO (08:56)
--- NOTE | 2024-08-15 09:12 | W.PN.HOSP.TC ---
Today's Communication/Plan
-
Insulin adjusted
If patient is going to be n.p.o. tonight then we will need to give 10 units of Lantus instead of the 18 and hold scheduled doses of NovoLog while NPO.
Continue to hold Lasix in anticipation of cath
Assessment / Plan
Assessment / Plan
84-year-old with shortness of breath
Symptoms for 2 weeks with palpitations and fatigue cardiac cath 07/26/2024 revealed multivessel disease with elevated filling pressures Lasix was increased staged PCI of the left circumflex and ramus was planned for 08/16/2024. About a week ago he was
advised to stop Lasix Farxiga and losartan for the upcoming cath he gained 4 pounds.
Chest x-ray reviewed by me-pulmonary edema
Echo 07/26/2024-moderately dilated LV with moderately reduced systolic function. EF 30 to 35%. Inferior, anterior, anterolateral hypokinesis. Stage II diastolic dysfunction. Mild MR. Moderate . Pulmonary artery pressure of 38 mmHg.
Status post right heart cath on 08/13/2024-wedge pressure 22 mmHg
Awake alert
Cardiovascular system S1-S2 regular, systolic murmur at aortic area
Chest CTA
Abdomen soft and nontender
No edema
# Non-STEMI
ASCVD
Troponin trended down
Continue aspirin, heparin, beta-sandie, statin
High risk PCI was planned for 08/16/2024 as outpatient prior to admission
Right heart cath on 08/12/2024 with elevated wedge pressure 22 mmHg
Left heart cath is plans per cards
# Acute on chronic HFrEF
Was advised to stop diuretics as OP?
Hold off on further Lasix Lasix 80 mg IV twice daily with creatinine trending up
Intake output charting, daily weights
weight better and less than his 'dry weight'
Echo 07/26/2024 with EF 30 to 35%
# Acute kidney injury on CKD stage III
Hyperkalemia resolved
Creatinine OP 2.0 ->2.6 -> 2.4->2.7->2.6
Follow creatinine
Hold metformin
Continue to hold Farxiga and losartan
Nephrology evaluation appreciated
# Anemia-likely secondary to chronic kidney disease
Iron deficiency noted
Completed IV iron
# Hypertension-continue Coreg
Hold off on losartan
# Poorly controlled diabetes Hb A1C-6.9
Hold Farxiga
Lantus-uses 16 units at home, increase to 18 units
Added Novolog -increase NovoLog to 5 AC
Hold metformin with elevated creatinine
Accu-Cheks and sliding scale coverage
# Hyperlipidemia-continue Zetia and statin
# History of carotid endarterectomy
# Sleep apnea-continue PAP therapy
# Obesity with a BMI of 37
# History of prostate cancer
# DVT prophylaxis- Heparin
# Full code
Discussed with nursing at bedside
Discussed with cardiology
Part of this note was created using voice recognition system. Occasional wrong word or��sound alike� substitutions may have inadvertently occurred due to the inherent limitations of voice recognition software. If noted kindly bring it to my
attention for correction.
Anticipated Discharge: 24 - 48 hours
Subjective/Interval History
-
Date of Service: August 15, 2024
Objective Data
-
Labs:
Laboratory Results
08/15/24
04:18
WBC 11.3 H
Hgb 8.4 L
Hct 25.0 L
Plt Count 227
APTT 78.2 H
Sodium 134 L
Potassium 4.0
Chloride 103
Carbon Dioxide 23
BUN 75 H
Creatinine 2.6 H
Glucose 158 H
Calcium 9.2
Vital Signs:
Vital Signs
Temp Pulse Resp BP Pulse Ox
97.9 F 61 20 113/49 98
08/15/24 07:42 08/15/24 07:00 08/15/24 07:42 08/15/24 03:54 08/15/24 07:42
I&O
08/14/24 08/15/24 08/16/24
06:59 06:59 06:59
Intake Total 600 / 600 480 / 480
Output Total 2675 / 2675 2200 / 2200
Balance -5 / -2074 -1720 / -1720
--- NOTE | 2024-08-15 10:55 | W.PN.NEPH.PH ---
Today's Communication / Plan
-
follow labs off diuretics
Assessment/Plan
-
IMP:
Non-STEMI
ASCVD
Acute on chronic HFrEF
Echo 07/26/2024 with EF 30 to 35%, mod
Acute kidney injury on CKD stage IIIb baseline cr 2, follow Dr Myers
Hyperkalemia
Anemia
Hypertension
Poorly controlled diabetes
Hyperlipidemia
History of carotid endarterectomy
Sleep apnea
Obesity
hypervolemic hyponatremia
PCWP 30 on 07/26 with wt 113.9kg
Plan:
A/w sob, recent diagnosis of MVD and need of High risk PCI
SERA-cr slightly bettr at 2.6, lasix on hold
RHC 08/12 shows PCWP 22 , wt is down since
would wait for cr return to baseline 2.2 prior [facility], tentative 08/16
maintain FR 48 ounces/day
bp stable, continue to hold ARB
stable h/h, fe def noted, on iV fe course per primary
follow daily wts and labs
avoid nephrotoxins
mild hypervolemic hyponatremia-stable
d/w pt and family
-
-
Date of Service: August 15, 2024
CC / HPI / ROS
-
Chief Complaint:
Sera with CKD
History of Present Illness:
cr up at 2.6, k normal
sodium better at 134
Bp stable
hgb stable at 8.6 ,on iv heparin gtt
Review of Systems:
no sob, can not lay flat -chronically
wt is stable
no cp
Labs
-
Labs:
WBC 11.3 10^3/uL (4.8-10.8) H 08/15/24 04:18
RBC 2.66 10^6/uL (4.70-6.10) L 08/15/24 04:18
Hgb 8.4 g/dL (13.0-18.0) L 08/15/24 04:18
Hct 25.0 % (39.0-52.0) L 08/15/24 04:18
Plt Count 227 10^3/uL (130-400) 08/15/24 04:18
Sodium 134 mmol/L (135-145) L 08/15/24 04:18
Potassium 4.0 mmol/L (3.5-5.1) 08/15/24 04:18
Chloride 103 mmol/L (98-107) 08/15/24 04:18
Carbon Dioxide 23 mmol/L (22-30) 08/15/24 04:18
BUN 75 mg/dl (9-20) H 08/15/24 04:18
Creatinine 2.6 mg/dL (0.7-1.3) H 08/15/24 04:18
eGFR 23.73 08/15/24 04:18
Glucose 158 mg/dl (70-99) H 08/15/24 04:18
Calcium 9.2 mg/dl (8.4-10.2) 08/15/24 04:18
Jea-L-Xoyyfvaxgbn Pept 65832 pg/ml 08/09/24 03:26
Albumin 3.2 g/dl (3.5-5.0) L 08/10/24 03:04
Physical Exam
-
Vital Signs:
Vital Signs
Temp Pulse Resp BP Pulse Ox
97.8 F 57 20 109/52 98
08/15/24 11:54 08/15/24 12:00 08/15/24 11:54 08/15/24 11:54 08/15/24 11:54
Cardiovascular:: Regular rate and rhythm
Respiratory:: Bilateral: CTA
Lung Excursion:: Normal
Abdomen:: Nontender and Soft
Extremity Edema:: None: Bilateral:
Zavala Catheter: No
[2024-08-15] MEDS: NOVOLOG FLEXPEN 5 UNITS SC ×2 (12:32→18:12)
[2024-08-15] MEDS: NOVOLOG FLEXPEN-MODERATE RESISTANCE 3 UNITS SC ×2 (12:33→18:10)
[2024-08-15 12:36] LABS: Glucose - Point of Care 230 mg/dl (70-99)
--- NOTE | 2024-08-15 13:56 | W.PN.CD ---
Today's Communication / Plan
-
Hold diuretics
Waiting for Cr to improve for cath
Impression / Plan
-
Esmbl-pe-cuxygxa HFrEF/ICM (EF 30-35%):
-RHC: CONCLUSION: 1. Moderately elevated filling pressures (PCWP = 22 mmHg at 109.3 kg). 2. Preserved cardiac function (cardiac index = 2.71 L/min/m�).
-Creatinine remains 2.6 August 15
-hold diuretics
-CHF education, sodium/fluid restriction
-GDMT limited by renal function presently.
-Continue carvedilol.
- likely Cath FridayAugust 16
Acute on CKD3:
-Dr. Anne is op Test Skein Winder
-Nephrology following
-RHC as above.
Abnormal troponin:
-no CP, EKG stable, trop trending down
-NSTEMI versus type II WA (in setting of anemia, hypoxia, renal dysfunction)
-continue IV heparin for now, which requires intensive monitoring
-Continue ASA, statin, BB
-Eventual LHC; timing as above.
CAD with multivessel CAD:
-plan was for high-risk PCI on 08/16/2024.
- Plan as above.
Anemia:
-IV iron added
Moderate :
- Continue to monitor over time by echo
Subjective:
No major events overnight. No cardiac complaints this a.m.
Data:
Echo 07/26/24: Moderately dilated LV with moderately reduced systolic function. LVEF is 30-35% by visual estimation. Inferior, anterior, and anterolateral hypokinesis; the apex appears akinetic. Stage II diastolic dysfunction. Mild mitral
regurgitation. Moderate aortic stenosis. Estimated pulmonary artery pressure of 38 mmHg.
Cardiac MRI 07/20/24: Dilated left ventricle. Myocardial wall thickening with hypokinesis involving the apical portion of the left ventricle as well as the inferoseptal distal mid left ventricle. There is also mild dyskinesis involving the apical
portion. Postcontrast enhancement in these regions, mainly subendocardial. Findings are suggestive of previous infarction/ischemic scarring. Calculated left ventricular ejection fraction of 32%. No MR evidence for a diffuse infiltrative process of
the left ventricular myocardium. Normal MR appearance of the right ventricle.
Cath 07/26/24: Right dominant circulation with chronic total occlusion of the ostial RCA, nonintervenable, diffuse disease in the distal/apical LAD, a 70% lesion in the proximal ramus followed by an 80% lesion in the mid ramus, immediately proximal to
the bifurcation point and an 80% lesion in the proximal/ostial circumflex. Severely elevated filling pressures (LVEDP = 27 mmHg, PCWP = 30 mmHg at 113.9 kg) with evidence of diastolic dysfunction (A wave to 37 mmHg) and either severe mitral
regurgitation or a noncompliant left atrium (V wave to 52 mmHg). Mild/moderate postcapillary pulmonary hypertension (mean PA = 41 mmHg, PCWP = 30 mmHg, cardiac output = 5.93 L/min, PVR = 1.85 Wood units), WHO group 2. Mild to moderate aortic valve
stenosis on pullback (mean AV gradient = 25.7 mmHg, NICKIE = 1.41 cm�). Significant anemia which may be affecting symptom burden. Diuresis, then plan for staged, high risk PCI of the circumflex and ramus intermedius barring surgical mitral valve
disease at the time of echocardiogram. I will plan to bring the patient back for PCI in approximately 1 month to allow him to compensate from his heart failure standpoint and fulfill his ordered testing.
Physical Exam
Vital Signs/Labs
Vital Signs
Temp Pulse Resp BP Pulse Ox
97.8 F 57 20 109/52 98
08/15/24 11:54 08/15/24 12:00 08/15/24 11:54 08/15/24 11:54 08/15/24 11:54
08/14/24 08/15/24 08/16/24
06:59 06:59 06:59
Actual Weight 236 lb 8.896 oz 236 lb 8.896 oz
08/15/24 04:18
08/15/24 04:18
APTT 78.2 Sec (23.4-35.0) H 08/15/24 04:18
Triglycerides 88 mg/dl (10-149) 08/10/24 03:04
LDL Cholesterol, Calc 23 mg/dl 08/10/24 03:04
VLDL Cholesterol, Calc 17 mg/dl (0-30) 08/10/24 03:04
HDL Cholesterol 34 mg/dl 08/10/24 03:04
08/09/24
03:26
Tzt-V-Stcvwgkqdzh Pept [id number]
Physical Exam
Constitutional: No acute distress and Comfortable
EENT: Anicteric
Cardiovascular: Rhythm & rate is regular and Pedal edema present (trivial)
Respiratory: Respiratory effort normal and Lungs clear to auscul.
GI: Soft
Neuro/Psych: AO x 3
Data Reviewed
-
Date of Service: August 15, 2024
EKG: Tracing Personally Visualized and interpreted (sr)
Echo: Report Reviewed by me
Labs: Labs Reviewed by me
[2024-08-15] MEDS: CRESTOR 40 MG PO (17:01)
[2024-08-15] MEDS: ZETIA 10 MG PO (17:01)
[2024-08-15 17:57] LABS: Glucose - Point of Care 219 mg/dl (70-99)
--- NOTE | 2024-08-15 21:15 | VATNOTE ---
Called by staffing associate, pt. has 'hard lump and tender to touch area', right anticubital. Area appears slightly edematous and warm to touch. IV was removed earlier today, RN relates, only IV lasix given. Elevation on pillow and warm compress
recommended. Also US may be needed to r/o clot. RN to make RN CLINICAL aware. Will follow.
--- NOTE | 2024-08-15 21:47 | W.PN.UPDATE ---
Update Note
Progress Note Update
Asked by RN and VAT team to evaluate patient's right arm. Per RN, patient had IV in right AC that was removed earlier today. Now patient has hard lump and tender to touch at right AC area.
Area assessed, AC area warm, slightly edematous, hard area noted above AC, pain rated at 3-4 out of 10 w/palpation per patient. Radial and ulnar pulses intact, patient denies numbness/tingling, loss of sensation to hand. Area currently elevated on
pillow and warm compress in place. Patient currently on heparin gtt. Peripheral U/S ordered to r/o clot or other acute diagnosis.
[2024-08-15 22:07] LABS: Glucose - Point of Care 197 mg/dl (70-99)
[2024-08-15] MEDS: SENOKOT 8.6 MG PO (22:13)
[2024-08-15] MEDS: LANTUS 0.18 UNITS SC (22:13)
[2024-08-16] VITALS (8 sets, daily range): BP systolic 94–134; BP diastolic 48–62; BMI 35.1
--- NOTE | 2024-08-16 01:08 | PTCARENOTE ---
Received pt @ change of shift. AAOx3. VSS, NSR/SB with 1st degree, BBB and prolonged QT on monitor. Heparin gtt running @ 1000 units/hr through left arm. C/o of pain at previous IV site in right AC-- hard lump with warmth noted. Informed IV team
and Julienne Martinez NP. IV hat steamer wanted to rule out blood clot vs infiltrate-- recommended warm compress/elevation in meantime. Order put in for RUE US-- results pending. Discussed plan of care for evening. Pt verbalizes understanding. Call
small within reach.
[2024-08-16] MEDS: HEPARIN 25000 UNITS/250 ML IV (04:04)
[2024-08-16 04:18] LABS: APTT 70.6 Sec (23.4-35.0)
[2024-08-16 04:30] LABS: Blood Urea Nitrogen 71 mg/dl (9-20); Calcium 9.1 mg/dl (8.4-10.2); Carbon Dioxide 24 mmol/L (22-30); Chloride 104 mmol/L (98-107); Estimated Creatinine Clearance 28 ml/min; Glucose 142 mg/dl (70-99); Potassium 4.5 mmol/L (3.5-5.1); Sodium 134 mmol/L (135-145); eGFR 26.12
[2024-08-16 07:20] LABS: Glucose - Point of Care 156 mg/dl (70-99)
--- NOTE | 2024-08-16 08:36 | W.PN.HOSP.TC ---
Today's Communication/Plan
-
see A/P
Assessment / Plan
Assessment / Plan
84-year-old M p/w shortness of breath for 2 weeks with palpitations and fatigue.
Cardiac cath 07/26/2024 revealed multivessel disease with elevated filling pressures. Lasix was increased. Planned for staged PCI of the left circumflex and ramus on 08/16/2024.
About a week ago, he was advised to stop Lasix/Farxiga/losartan for the upcoming cath. He gained 4 pounds.
Echo 07/26/2024-moderately dilated LV with moderately reduced systolic function. EF 30 to 35%. Inferior, anterior, anterolateral hypokinesis. Stage II diastolic dysfunction. Mild MR. Moderate . Pulmonary artery pressure of 38 mmHg.
Status post right heart cath on 08/13/2024-wedge pressure 22 mmHg
A/P:
# Acute on chronic HFrEF
?Was advised to stop diuretics as OP?
Holding IV Lasix 80 mg twice daily with increasing creatinine
Monitor intake output, daily weights. Weight better and less than his 'dry weight'
Echo 07/26/2024 with EF 30 to 35%
# Troponin elevation 2/2 ischemic myocardial injury
# ASCVD
Troponin trended down from 4.2 to 3.9
Continue aspirin, heparin gtt, beta-sandie, statin
High risk PCI was planned for 08/16/2024 as outpatient prior to admission
Right heart cath on 08/12/2024 with elevated wedge pressure 22 mmHg
Left heart cath plans per cards
# Acute kidney injury on CKD stage III
# Hyperkalemia, resolved
Creatinine 2.7 (peak) to 2.4 today
Follow creatinine
Hold metformin, continue to hold Farxiga and losartan
Nephrology evaluation appreciated
# Anemia, likely secondary to chronic kidney disease
# Iron deficiency noted
Completed IV iron
# Hypertension
continue Coreg
Hold off on losartan
BP stable
# Poorly controlled diabetes
A1C 6.9%
Hold Farxiga/ Hold metformin with elevated creatinine
Cont increased Lantus at 18 units HS (DETECTIVE BUREAU CHIEF at 16 units HS)
Added Novolog, increased to 5 units AC
Accu-Cheks and sliding scale coverage
# R arm swelling due to IV access
US No evidence of right upper extremity DVT. Superficial thrombus within the right cephalic vein in the region of the antecubital fossa. No thrombus within the central cephalic vein.
# Hyperlipidemia-continue Zetia and statin
# History of carotid endarterectomy
# Sleep apnea-continue PAP therapy
# Obesity with BMI 37
# History of prostate cancer
DVT prophylaxis- Heparin gtt
Full code
Anticipated Discharge: > 48 hours
Subjective/Interval History
-
Date of Service: August 16, 2024
Objective Data
-
Labs:
Laboratory Results
08/16/24 08/16/24
03:43 10:25
APTT 70.6 H Pending
Sodium 134 L
Potassium 4.5
Chloride 104
Carbon Dioxide 24
BUN 71 H
Creatinine 2.4 H
Glucose 142 H
Calcium 9.1
Vital Signs:
Vital Signs
Temp Pulse Resp BP Pulse Ox
36.6 C 63 18 134/62 97
08/16/24 07:15 08/16/24 07:15 08/16/24 07:15 08/16/24 03:29 08/16/24 07:15
I&O
08/15/24 08/16/24 08/17/24
06:59 06:59 06:59
Intake Total 480 / 480
Output Total 2200 / 2200 1275 / 1275
Balance -1720 / -1720 -1275 / -1275
Review of Systems
-
History Source: Patient
All other systems: Reviewed and negative
Physical Exam
-
General: Well Developed, Well Nourished, No Apparent Distress, Comfortable, Conversant and Obese; Negative Respiratory Distress
HEENT: Normocephalic, Atraumatic, Nose Appears Normal and Ears Appear Normal; Negative Oxygen
Respiratory: Clear to Auscultation and Non Labored Respirations; Negative Accessory Resp Muscle Use
Cardiac: Regular Rhythm and S1/S2
GI: Soft, Nontender, Nondistended and Normal Bowel Sounds
Skin: Warm and Dry
Neuro: Awake, Alert, Oriented and AO x 3
Psych: Calm and Intact Judgement/Insight
Data Reviewed
-
Labs: Labs Reviewed by me
[2024-08-16] MEDS: COREG 25 MG PO ×2 (09:25→20:06)
[2024-08-16] MEDS: LOW STRENGTH ASPIRIN 81 MG PO (09:25)
[2024-08-16] MEDS: MIRALAX 17 GRAMS PO (09:26)
[2024-08-16] MEDS: NOVOLOG FLEXPEN-MODERATE RESISTANCE 1 UNITS SC (09:29)
[2024-08-16] MEDS: NOVOLOG FLEXPEN 5 UNITS SC ×3 (09:30→18:15)
--- NOTE | 2024-08-16 09:56 | W.PN.CD ---
Today's Communication / Plan
-
trend Cr
tentative plan for LHC/PCI tomorrow
continue ASA, heparin drip
Impression / Plan
-
Zsguj-wa-zeosqnq HFrEF/ICM (EF 30-35%):
-RHC 08/12 : CONCLUSION: 1. Moderately elevated filling pressures (PCWP = 22 mmHg at 109.3 kg). 2. Preserved cardiac function (cardiac index = 2.71 L/min/m�).
-hold diuretics due to KELLY
-CHF education, sodium/fluid restriction
-GDMT limited by renal function presently.
-Continue carvedilol.
- likely Cath tomorrow if Cr stable/improved
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
-Dr. Anne is op [facility]
-Nephrology following
-RHC as above.
Abnormal troponin:
-no CP, EKG stable, trop trending down
-NSTEMI versus type II [place] (in setting of anemia, hypoxia, renal dysfunction)
-NSTEMI is threat to life, peak trop 4.2
-continue IV heparin pending cath, which requires intensive monitoring of labs/tele
-Continue ASA, statin, BB
CAD with multivessel CAD:
-plan was for high-risk PCI as outpatient, but now will be done inpatient due to renal function
- Plan as above.
Anemia:
-s/p IV iron
Moderate :
- Continue to monitor over time by echo
Data:
Echo 07/26/24: Moderately dilated LV with moderately reduced systolic function. LVEF is 30-35% by visual estimation. Inferior, anterior, and anterolateral hypokinesis; the apex appears akinetic. Stage II diastolic dysfunction. Mild mitral
regurgitation. Moderate aortic stenosis. Estimated pulmonary artery pressure of 38 mmHg.
Cardiac MRI 07/20/24: Dilated left ventricle. Myocardial wall thickening with hypokinesis involving the apical portion of the left ventricle as well as the inferoseptal distal mid left ventricle. There is also mild dyskinesis involving the apical
portion. Postcontrast enhancement in these regions, mainly subendocardial. Findings are suggestive of previous infarction/ischemic scarring. Calculated left ventricular ejection fraction of 32%. No MR evidence for a diffuse infiltrative process of
the left ventricular myocardium. Normal MR appearance of the right ventricle.
Cath 07/26/24: Right dominant circulation with chronic total occlusion of the ostial RCA, nonintervenable, diffuse disease in the distal/apical LAD, a 70% lesion in the proximal ramus followed by an 80% lesion in the mid ramus, immediately proximal to
the bifurcation point and an 80% lesion in the proximal/ostial circumflex. Severely elevated filling pressures (LVEDP = 27 mmHg, PCWP = 30 mmHg at 113.9 kg) with evidence of diastolic dysfunction (A wave to 37 mmHg) and either severe mitral
regurgitation or a noncompliant left atrium (V wave to 52 mmHg). Mild/moderate postcapillary pulmonary hypertension (mean PA = 41 mmHg, PCWP = 30 mmHg, cardiac output = 5.93 L/min, PVR = 1.85 Wood units), WHO group 2. Mild to moderate aortic valve
stenosis on pullback (mean AV gradient = 25.7 mmHg, NICKIE = 1.41 cm�). Significant anemia which may be affecting symptom burden. Diuresis, then plan for staged, high risk PCI of the circumflex and ramus intermedius barring surgical mitral valve
disease at the time of echocardiogram. I will plan to bring the patient back for PCI in approximately 1 month to allow him to compensate from his heart failure standpoint and fulfill his ordered testing.
Physical Exam
Vital Signs/Labs
Vital Signs
Temp Pulse Resp BP Pulse Ox
97.8 F 56 18 117/62 97
08/16/24 07:15 08/16/24 09:25 08/16/24 07:15 08/16/24 09:25 08/16/24 07:15
08/15/24 08/16/24 08/17/24
06:59 06:59 06:59
Actual Weight 107.3 kg 107.8 kg
08/15/24 04:18
08/16/24 03:43
APTT 70.6 Sec (23.4-35.0) H 08/16/24 03:43
Triglycerides 88 mg/dl (10-149) 08/10/24 03:04
LDL Cholesterol, Calc 23 mg/dl 08/10/24 03:04
VLDL Cholesterol, Calc 17 mg/dl (0-30) 08/10/24 03:04
HDL Cholesterol 34 mg/dl 08/10/24 03:04
08/09/24
03:26
Xsq-M-Ayloxgqslpy Pept [id number]
Physical Exam
Constitutional: No acute distress and Comfortable
EENT: Moist mucous membranes
Cardiovascular: Rhythm & rate is regular, Pedal edema is absent, JVD pressure is normal and Systolic murmur present
Respiratory: Respiratory effort normal and Lungs clear to auscul.
Neuro/Psych: AO x 3
Data Reviewed
-
Date of Service: August 16, 2024
EKG: Other (Tele: SR 70s)
Labs: Labs Reviewed by me
[2024-08-16 11:04] LABS: APTT 78.2 Sec (23.4-35.0)
[2024-08-16 11:24] LABS: Glucose - Point of Care 342 mg/dl (70-99)
--- NOTE | 2024-08-16 12:11 | W.PN.NEPH.PH ---
Today's Communication / Plan
-
Catheterization in the next 24 hours if creatinine the same or better
Assessment/Plan
-
IMP:
Non-STEMI
ASCVD
Acute on chronic HFrEF
Echo 07/26/2024 with EF 30 to 35%, mod
Acute kidney injury on CKD stage IIIb baseline cr 2, follow Dr Myers
Hyperkalemia
Anemia
Hypertension
Poorly controlled diabetes
Hyperlipidemia
History of carotid endarterectomy
Sleep apnea
Obesity
hypervolemic hyponatremia
PCWP 30 on 07/26 with wt 113.9kg
Plan:
A/w sob, recent diagnosis of MVD and need of High risk PCI
SERA-cr slightly bettr at 2.6, lasix on hold
RHC 08/12 shows PCWP 22 , wt is down since
maintain FR 48 ounces/day
bp stable, continue to hold ARB
follow daily wts and labs
avoid nephrotoxins
Renal function stable still above baseline but okay to proceed with catheterization in the next 24 hours
Corresponded with cardiology
Discussed with family at bedside. Patient aware risk-benefit ratio and EMILY risk
-
-
Date of Service: August 16, 2024
CC / HPI / ROS
-
Chief Complaint:
Sera with CKD
History of Present Illness:
cr up at 2.6, k normal
sodium better at 134
Bp stable
hgb stable at 8.6 ,on iv heparin gtt
Review of Systems:
no sob, can not lay flat -chronically
wt is stable
no cp
Labs
-
Labs:
WBC 11.3 10^3/uL (4.8-10.8) H 08/15/24 04:18
RBC 2.66 10^6/uL (4.70-6.10) L 08/15/24 04:18
Hgb 8.4 g/dL (13.0-18.0) L 08/15/24 04:18
Hct 25.0 % (39.0-52.0) L 08/15/24 04:18
Plt Count 227 10^3/uL (130-400) 08/15/24 04:18
Sodium 134 mmol/L (135-145) L 08/16/24 03:43
Potassium 4.5 mmol/L (3.5-5.1) 08/16/24 03:43
Chloride 104 mmol/L (98-107) 08/16/24 03:43
Carbon Dioxide 24 mmol/L (22-30) 08/16/24 03:43
BUN 71 mg/dl (9-20) H 08/16/24 03:43
Creatinine 2.4 mg/dL (0.7-1.3) H 08/16/24 03:43
eGFR 26.12 08/16/24 03:43
Glucose 142 mg/dl (70-99) H 08/16/24 03:43
Calcium 9.1 mg/dl (8.4-10.2) 08/16/24 03:43
Cve-O-Qdxrslyqqdn Pept 32778 pg/ml 08/09/24 03:26
Albumin 3.2 g/dl (3.5-5.0) L 08/10/24 03:04
Physical Exam
-
Vital Signs:
Vital Signs
Temp Pulse Resp BP Pulse Ox
98.1 F 59 18 94/53 98
08/16/24 11:15 08/16/24 11:18 08/16/24 11:15 08/16/24 11:18 08/16/24 11:15
Cardiovascular:: Regular rate and rhythm
Respiratory:: Bilateral: CTA
Lung Excursion:: Normal
Abdomen:: Nontender and Soft
Extremity Edema:: None: Bilateral:
Zavala Catheter: No
[2024-08-16 14:06] LABS: Glucose - Point of Care 254 mg/dl (70-99)
[2024-08-16] MEDS: NOVOLOG FLEXPEN-MODERATE RESISTANCE 5 UNITS SC (14:09)
[2024-08-16 18:06] LABS: Glucose - Point of Care 218 mg/dl (70-99)
[2024-08-16] MEDS: NOVOLOG FLEXPEN-MODERATE RESISTANCE 3 UNITS SC (18:14)
[2024-08-16] MEDS: ZETIA 10 MG PO (18:15)
[2024-08-16] MEDS: CRESTOR 40 MG PO (18:15)
[2024-08-16 18:54] LABS: APTT 68.6 Sec (23.4-35.0)
--- NOTE | 2024-08-16 19:27 | PTCARENOTE ---
pt continues to be sr on the monitor, hr in the 70s, vss. pt offers no complaints at this time. pt educated on plan of care and pt verbalized understanding. heparin gtt running per protocol, see documentation. pt ambulating thorough the halls and
tolerating well. heparin gtt running per protocol. call small within reach.
[2024-08-16 22:12] LABS: Glucose - Point of Care 220 mg/dl (70-99)
[2024-08-16] MEDS: SENOKOT 8.6 MG PO (22:23)
[2024-08-16] MEDS: LANTUS 0.18 UNITS SC (22:23)
[2024-08-17] VITALS (8 sets, daily range): BP systolic 105–113; BP diastolic 48–81; BMI 35.5
--- NOTE | 2024-08-17 00:22 | PTCARENOTE ---
Rec'd pt at change of shift. Pt AAO*3, VSS, and SR on TELE monitor with 1st degree and BBB. Heparin infusing as ordered. Pt denies any pain or discomfort. R brachial site open to air and intact. Pt agreed to activity restriction. Currently
resting with call small in reach and plan of care ongoing. See MAR and flowchart for full pt care and assessment.
[2024-08-17] MEDS: HEPARIN 25000 UNITS/250 ML IV ×2 (02:02→22:07)
[2024-08-17 02:03] LABS: Hematocrit 24.5 % (39.0-52.0); Hemoglobin 8.3 g/dL (13.0-18.0); Mean Corp Hgb Conc. 33.9 g/dL (33.0-37.0); Mean Corpuscular Hgb 31.9 pg (27.0-31.0); Mean Corpuscular Volume 94.2 fL (80.0-94.0); Mean Platelet Volume 8.7 fL (7.4-10.4); Platelet Count 189 10^3/uL (130-400); Red Cell Dist. Width 13.3 % (11.5-14.5); White Blood Cell Count 9.2 10^3/uL (4.8-10.8)
[2024-08-17 02:24] LABS: APTT 104.3 Sec (23.4-35.0)
[2024-08-17 02:55] LABS: Blood Urea Nitrogen 64 mg/dl (9-20); Calcium 8.7 mg/dl (8.4-10.2); Carbon Dioxide 19 mmol/L (22-30); Chloride 112 mmol/L (98-107); Estimated Creatinine Clearance 34 ml/min; Glucose 156 mg/dl (70-99); Magnesium 2.6 mg/dl (1.6-2.3); Potassium 4.4 mmol/L (3.5-5.1); Sodium 139 mmol/L (135-145); eGFR 32.51
[2024-08-17 07:08] LABS: Glucose - Point of Care 182 mg/dl (70-99)
[2024-08-17] MEDS: NOVOLOG FLEXPEN SC ×2 (07:22→12:08)
[2024-08-17] MEDS: MIRALAX PO (07:37)
[2024-08-17] MEDS: COREG 25 MG PO ×2 (07:37→20:05)
[2024-08-17] MEDS: NOVOLOG FLEXPEN-MODERATE RESISTANCE 1 UNITS SC ×3 (07:37→18:06)
[2024-08-17] MEDS: LOW STRENGTH ASPIRIN 81 MG PO (07:37)
--- NOTE | 2024-08-17 07:59 | W.PN.HOSP.TC ---
Today's Communication/Plan
-
for cardiac cath today
Assessment / Plan
Assessment / Plan
84-year-old M p/w shortness of breath for 2 weeks with palpitations and fatigue.
Cardiac cath 07/26/2024 revealed multivessel disease with elevated filling pressures. Lasix was increased. Planned for staged PCI of the left circumflex and ramus on 08/16/2024.
About a week ago, he was advised to stop Lasix/Farxiga/losartan for the upcoming cath. He gained 4 pounds.
Echo 07/26/2024-moderately dilated LV with moderately reduced systolic function. EF 30 to 35%. Inferior, anterior, anterolateral hypokinesis. Stage II diastolic dysfunction. Mild MR. Moderate . Pulmonary artery pressure of 38 mmHg.
Status post right heart cath on 08/13/2024-wedge pressure 22 mmHg
A/P:
# Acute on chronic HFrEF
?Was advised to stop diuretics as OP?
Holding IV Lasix 80 mg BID with rising creatinine
Monitor intake output, daily weights. Weight better and less than his 'dry weight'
Echo 07/26/2024 with EF 30 to 35%
# Troponin elevation 2/2 ischemic myocardial injury
# ASCVD
Troponin trended down from 4.2 to 3.9
was planned for high risk PCI was planned for 08/16/2024 as outpatient prior to admission
Right heart cath on 08/12/2024 with elevated wedge pressure 22 mmHg
Continue aspirin, heparin gtt, beta-sandie, statin
For Left heart cath 08/17
# Acute kidney injury on CKD stage III
# Hyperkalemia, resolved
Creatinine 2.7 (peak) to 2.0 today
Follow creatinine
Hold metformin, continue to hold Farxiga and losartan
Nephrology evaluation appreciated
# Anemia, likely secondary to chronic kidney disease
# Iron deficiency noted
Completed IV iron
# Hypertension
continue Coreg
Hold off on losartan
BP stable
# Poorly controlled diabetes
A1C 6.9%
Hold Farxiga/Hold metformin with elevated creatinine
Cont increased Lantus at 18 units HS ([employer] at 16 units HS)
Added Novolog, increased to 5 units AC
Accu-Cheks and sliding scale coverage
# R arm swelling due to IV access
US No evidence of right upper extremity DVT. Superficial thrombus within the right cephalic vein in the region of the antecubital fossa. No thrombus within the central cephalic vein.
# Hyperlipidemia-continue Zetia and statin
# History of carotid endarterectomy
# Sleep apnea-continue PAP therapy
# Obesity with BMI 37
# History of prostate cancer
DVT prophylaxis- Heparin gtt
Full code
Anticipated Discharge: > 48 hours
Subjective/Interval History
-
Date of Service: August 17, 2024
Objective Data
-
Labs:
Laboratory Results
08/17/24 08/17/24
01:55 08:30
WBC 9.2
Hgb 8.3 L
Hct 24.5 L
Plt Count 189
APTT 104.3 H Pending
Sodium 139
Potassium 4.4
Chloride 112 H
Carbon Dioxide 19 L
BUN 64 H
Creatinine 2.0 H
Glucose 156 H
Calcium 8.7
Vital Signs:
Vital Signs
Temp Pulse Resp BP Pulse Ox
36.6 C 55 18 112/48 95
08/17/24 06:59 08/17/24 07:03 08/17/24 06:59 08/17/24 07:03 08/17/24 06:59
I&O
08/16/24 08/17/24 08/18/24
06:59 06:59 06:59
Intake Total 1200 / 1200
Output Total 1275 / 1275 800 / 800 325 / 325
Balance -1275 / -1275 400 / 400 -325 / -325
Review of Systems
-
History Source: Patient
All other systems: Reviewed and negative
Physical Exam
-
General: Well Developed, Well Nourished, No Apparent Distress, Comfortable, Conversant and Obese; Negative Respiratory Distress
HEENT: Normocephalic, Atraumatic, Nose Appears Normal and Ears Appear Normal; Negative Oxygen
Respiratory: Clear to Auscultation and Non Labored Respirations; Negative Accessory Resp Muscle Use
Cardiac: Regular Rhythm and S1/S2
GI: Soft, Nontender, Nondistended and Normal Bowel Sounds
Skin: Warm and Dry
Neuro: Awake, Alert, Oriented and AO x 3
Psych: Calm and Intact Judgement/Insight
Data Reviewed
-
Labs: Labs Reviewed by me
[2024-08-17 09:18] LABS: APTT 108.4 Sec (23.4-35.0)
--- NOTE | 2024-08-17 10:37 | W.PN.NEPH.PH ---
Today's Communication / Plan
-
bicarb telephoner precath
Assessment/Plan
-
IMP:
Non-STEMI
ASCVD
Acute on chronic HFrEF
Echo 07/26/2024 with EF 30 to 35%, mod
Acute kidney injury on CKD stage IIIb baseline cr 2, follow Dr Myers
Hyperkalemia
Anemia
Hypertension
Poorly controlled diabetes
Hyperlipidemia
History of carotid endarterectomy
Sleep apnea
Obesity
hypervolemic hyponatremia
PCWP 30 on 07/26 with wt 113.9kg
Plan:
A/w sob, recent diagnosis of MVD and need of High risk PCI
SERA-cr slightly bettr at 2.6, lasix on hold
RHC 08/12 shows PCWP 22 , wt is down since
maintain FR 48 ounces/day
bp stable, continue to hold ARB
follow daily wts and labs
avoid nephrotoxins
Renal functionbetter
bicarb prophylaxis
Corresponded with cardiology
Discussed with family at bedside. Patient aware risk-benefit ratio and EMILY risk
-
-
Date of Service: August 17, 2024
CC / HPI / ROS
-
Chief Complaint:
Sera with CKD
History of Present Illness:
cr up at 2.6, k normal
sodium better at 134
Bp stable
hgb stable at 8.6 ,on iv heparin gtt
Review of Systems:
no sob, can not lay flat -chronically
wt is stable
no cp
Labs
-
Labs:
WBC 9.2 10^3/uL (4.8-10.8) 08/17/24 01:55
RBC 2.60 10^6/uL (4.70-6.10) L 08/17/24 01:55
Hgb 8.3 g/dL (13.0-18.0) L 08/17/24 01:55
Hct 24.5 % (39.0-52.0) L 08/17/24 01:55
Plt Count 189 10^3/uL (130-400) 08/17/24 01:55
Sodium 139 mmol/L (135-145) 08/17/24 01:55
Potassium 4.4 mmol/L (3.5-5.1) 08/17/24 01:55
Chloride 112 mmol/L (98-107) H 08/17/24 01:55
Carbon Dioxide 19 mmol/L (22-30) L 08/17/24 01:55
BUN 64 mg/dl (9-20) H 08/17/24 01:55
Creatinine 2.0 mg/dL (0.7-1.3) H 08/17/24 01:55
eGFR 32.51 08/17/24 01:55
Glucose 156 mg/dl (70-99) H 08/17/24 01:55
Calcium 8.7 mg/dl (8.4-10.2) 08/17/24 01:55
Qpy-V-Jzjxjuiiyxf Pept 51287 pg/ml 08/09/24 03:26
Albumin 3.2 g/dl (3.5-5.0) L 08/10/24 03:04
Physical Exam
-
Vital Signs:
Vital Signs
Temp Pulse Resp BP Pulse Ox
97.8 F 55 18 112/48 95
08/17/24 06:59 08/17/24 07:03 08/17/24 06:59 08/17/24 07:03 08/17/24 06:59
Cardiovascular:: Regular rate and rhythm
Respiratory:: Bilateral: CTA
Lung Excursion:: Normal
Abdomen:: Nontender and Soft
Extremity Edema:: +1: Bilateral:
Zavala Catheter: No
[2024-08-17 13:33] LABS: Glucose - Point of Care 158 mg/dl (70-99)
[2024-08-17] MEDS: NOVOLOG FLEXPEN 5 UNITS SC ×2 (13:42→17:23)
--- NOTE | 2024-08-17 13:48 | PTCARENOTE ---
Cath cancelled for today. Pt made aware and Dr. Constantino at bedside. Plan of care reviewed w/ pt and verbalizes understanding. Heparin gtt infusing at 12 ml/hr. Currently OOB in chair; call staci w/in reach.
--- NOTE | 2024-08-17 15:23 | W.PN.CD ---
Today's Communication / Plan
-
cont. to hold diuretics
plan for PCI tomorrow, NPO@[place]
Impression / Plan
-
Bukdk-bo-kpuuuly HFrEF/ICM (EF 30-35%):
-RHC 08/12 : CONCLUSION: 1. Moderately elevated filling pressures (PCWP = 22 mmHg at 109.3 kg). 2. Preserved cardiac function (cardiac index = 2.71 L/min/m�).
-improving with diuretics held, cont. to hold diuretic today and reassess filling pressures in engineer geophysical laboratory tomorrow
-CHF education, sodium/fluid restriction
-GDMT limited by renal function presently.
-Continue carvedilol.
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
-Dr. Anne is op [employer]
-Nephrology following
-RHC as above.
-Cr improved today with diuretic held
Abnormal troponin:
-no CP, EKG stable, trop peaked
-NSTEMI versus type II [place] (in setting of anemia, hypoxia, renal dysfunction)
-continue IV heparin pending cath, which requires intensive monitoring of labs/tele
-Continue ASA, statin, BB
CAD with multivessel CAD:
-discussed extensively with Dr. Sutton, high risk PCI given anatomy (ostial ramus and LCx likely with need for LAD protection) and renal dysfunction, plan for PCI of LCx and Ramus tomorrow, please make NPO@[place]
Anemia:
-s/p IV iron
Moderate :
- Continue to monitor over time by echo
Data:
Echo 07/26/24: Moderately dilated LV with moderately reduced systolic function. LVEF is 30-35% by visual estimation. Inferior, anterior, and anterolateral hypokinesis; the apex appears akinetic. Stage II diastolic dysfunction. Mild mitral
regurgitation. Moderate aortic stenosis. Estimated pulmonary artery pressure of 38 mmHg.
Cardiac MRI 07/20/24: Dilated left ventricle. Myocardial wall thickening with hypokinesis involving the apical portion of the left ventricle as well as the inferoseptal distal mid left ventricle. There is also mild dyskinesis involving the apical
portion. Postcontrast enhancement in these regions, mainly subendocardial. Findings are suggestive of previous infarction/ischemic scarring. Calculated left ventricular ejection fraction of 32%. No MR evidence for a diffuse infiltrative process of
the left ventricular myocardium. Normal MR appearance of the right ventricle.
Cath 07/26/24: Right dominant circulation with chronic total occlusion of the ostial RCA, nonintervenable, diffuse disease in the distal/apical LAD, a 70% lesion in the proximal ramus followed by an 80% lesion in the mid ramus, immediately proximal to
the bifurcation point and an 80% lesion in the proximal/ostial circumflex. Severely elevated filling pressures (LVEDP = 27 mmHg, PCWP = 30 mmHg at 113.9 kg) with evidence of diastolic dysfunction (A wave to 37 mmHg) and either severe mitral
regurgitation or a noncompliant left atrium (V wave to 52 mmHg). Mild/moderate postcapillary pulmonary hypertension (mean PA = 41 mmHg, PCWP = 30 mmHg, cardiac output = 5.93 L/min, PVR = 1.85 Wood units), WHO group 2. Mild to moderate aortic valve
stenosis on pullback (mean AV gradient = 25.7 mmHg, NICKIE = 1.41 cm�). Significant anemia which may be affecting symptom burden. Diuresis, then plan for staged, high risk PCI of the circumflex and ramus intermedius barring surgical mitral valve
disease at the time of echocardiogram. I will plan to bring the patient back for PCI in approximately 1 month to allow him to compensate from his heart failure standpoint and fulfill his ordered testing.
Physical Exam
Vital Signs/Labs
Vital Signs
Temp Pulse Resp BP Pulse Ox
36.6 C 53 18 111/66 99
08/17/24 12:03 08/17/24 12:04 08/17/24 12:03 08/17/24 12:04 08/17/24 12:03
08/16/24 08/17/24 08/18/24
06:59 06:59 06:59
Actual Weight 107.8 kg 108.9 kg
08/17/24 01:55
08/17/24 01:55
APTT 108.4 Sec (23.4-35.0) H 08/17/24 08:52
Magnesium 2.6 mg/dl (1.6-2.3) H 08/17/24 01:55
Triglycerides 88 mg/dl (10-149) 08/10/24 03:04
LDL Cholesterol, Calc 23 mg/dl 08/10/24 03:04
VLDL Cholesterol, Calc 17 mg/dl (0-30) 08/10/24 03:04
HDL Cholesterol 34 mg/dl 08/10/24 03:04
08/09/24
03:26
Xnx-Z-Kadnabwtuwc Pept [id number]
Physical Exam
Constitutional: No acute distress
Cardiovascular: Rhythm & rate is regular
Respiratory: Respiratory effort normal
Neuro/Psych: AO x 3
Data Reviewed
-
Date of Service: August 17, 2024
Medical Decision Making: Reviewed Test Results
EKG: Tracing Personally Visualized and interpreted
Echo: Tracing Personally Visualized and interpreted
X-Ray/CT/US/MRI/NUC/PET: Image Personally Visualized and interpreted
Medical Tests (PFT, Pathology etc): Image Personally Visualized and interpreted
Labs: Labs Reviewed by me
[2024-08-17 17:22] LABS: Glucose - Point of Care 227 mg/dl (70-99)
[2024-08-17] MEDS: ZETIA 10 MG PO (17:23)
[2024-08-17] MEDS: NOVOLOG FLEXPEN-MODERATE RESISTANCE SC (17:23)
[2024-08-17] MEDS: CRESTOR 40 MG PO (17:23)
[2024-08-17 18:02] LABS: Glucose - Point of Care 195 mg/dl (70-99)
--- NOTE | 2024-08-17 20:52 | PTCARENOTE ---
Rec'd pt at change of shift. Pt AAO*3, VSS, and SR on TELE monitor. Pt with heparin infusing as ordered and verbalizes understanding of NPO status at midnight. Pt resting with call small in reach. See MAR and flowchart for full pt care and
assessment. Plan of care ongoing.
[2024-08-17 21:53] LABS: Glucose - Point of Care 193 mg/dl (70-99)
[2024-08-17] MEDS: LANTUS 0.09 UNITS SC (22:06)
[2024-08-17] MEDS: SENOKOT 8.6 MG PO (22:07)
[2024-08-18] VITALS (13 sets, daily range): BP systolic 103–136; BP diastolic 47–66; BMI 35.1
[2024-08-18 04:21] LABS: APTT 140.3 Sec (23.4-35.0)
[2024-08-18 04:32] LABS: Blood Urea Nitrogen 59 mg/dl (9-20); Calcium 8.9 mg/dl (8.4-10.2); Carbon Dioxide 20 mmol/L (22-30); Chloride 108 mmol/L (98-107); Estimated Creatinine Clearance 34 ml/min; Glucose 151 mg/dl (70-99); Potassium 4.7 mmol/L (3.5-5.1); Sodium 135 mmol/L (135-145); eGFR 32.51
[2024-08-18] MEDS: NOVOLOG FLEXPEN SC ×2 (07:15→11:40)
[2024-08-18] MEDS: MIRALAX PO (07:15)
[2024-08-18] MEDS: COREG 25 MG PO ×2 (07:23→20:05)
[2024-08-18] MEDS: LOW STRENGTH ASPIRIN 81 MG PO (07:23)
[2024-08-18] MEDS: NOVOLOG FLEXPEN-MODERATE RESISTANCE 1 UNITS SC ×2 (07:26→11:37)
[2024-08-18 07:27] LABS: Glucose - Point of Care 184 mg/dl (70-99)
--- NOTE | 2024-08-18 08:00 | W.PN.HOSP.TC ---
Today's Communication/Plan
-
see A/P
Assessment / Plan
Assessment / Plan
84-year-old M p/w shortness of breath for 2 weeks with palpitations and fatigue.
Cardiac cath 07/26/2024 revealed multivessel disease with elevated filling pressures. Lasix was increased. Planned for staged PCI of the left circumflex and ramus on 08/16/2024.
About a week ago, he was advised to stop Lasix/Farxiga/losartan for the upcoming cath. He gained 4 pounds.
Echo 07/26/2024-moderately dilated LV with moderately reduced systolic function. EF 30 to 35%. Inferior, anterior, anterolateral hypokinesis. Stage II diastolic dysfunction. Mild MR. Moderate . Pulmonary artery pressure of 38 mmHg.
Status post right heart cath on 08/13/2024-wedge pressure 22 mmHg
A/P:
# Acute on chronic HFrEF
?Was advised to stop diuretics as OP?
Holding IV Lasix 80 mg BID with rising creatinine
Monitor intake output, daily weights. Weight better and less than his 'dry weight'
Echo 07/26/2024 with EF 30 to 35%
# Troponin elevation 2/2 ischemic myocardial injury
# ASCVD
Troponin trended down from 4.2 to 3.9
was planned for high risk PCI was planned for 08/16/2024 as outpatient prior to admission
Right heart cath on 08/12/2024 with elevated wedge pressure 22 mmHg
Continue aspirin, heparin gtt, beta-sandie, statin
s/p Left heart cath 08/17, and 08/18 for PCI of LCx and Ramus
# Acute kidney injury on CKD stage III
# Hyperkalemia, resolved
Creatinine 2.7 (peak) to 2.0 today
Follow creatinine
Hold metformin, Farxiga and losartan
Bicarb drip per renal
Nephrology evaluation appreciated
# Anemia, likely secondary to chronic kidney disease
# Iron deficiency noted
Completed IV iron
# Hypertension
continue Coreg with hold parameter
Hold off on losartan
BP stable
# Poorly controlled diabetes
A1C 6.9%
Hold Farxiga/Hold metformin with elevated creatinine
Cont increased Lantus at 18 units HS (MARGAR[employer]KER at 16 units HS)
Added Novolog, increased to 5 units AC
Accu-Cheks and sliding scale coverage
# R arm swelling due to IV access
US No evidence of right upper extremity DVT. Superficial thrombus within the right cephalic vein in the region of the antecubital fossa. No thrombus within the central cephalic vein.
# Hyperlipidemia-continue Zetia and statin
# History of carotid endarterectomy
# Sleep apnea-continue PAP therapy
# Obesity with BMI 37
# History of prostate cancer
DVT prophylaxis- Heparin gtt
Full code
Anticipated Discharge: 24 - 48 hours
Subjective/Interval History
-
Date of Service: August 18, 2024
Objective Data
-
Labs:
Laboratory Results
08/18/24 08/18/24
03:43 12:00
APTT 140.3 H Pending
Sodium 135
Potassium 4.7
Chloride 108 H
Carbon Dioxide 20 L
BUN 59 H
Creatinine 2.0 H
Glucose 151 H
Calcium 8.9
Vital Signs:
Vital Signs
Temp Pulse Resp BP Pulse Ox
36.8 C 67 16 103/47 98
08/18/24 07:31 08/18/24 07:01 08/18/24 07:31 08/18/24 07:01 08/18/24 07:31
I&O
08/17/24 08/18/24 08/19/24
06:59 06:59 06:59
Intake Total 1200 / 1200 480 / 480
Output Total 800 / 800 2000 / 2000
Balance 400 / 400 -1520 / -1520
Review of Systems
-
History Source: Patient
All other systems: Reviewed and negative
Physical Exam
-
General: Well Developed, Well Nourished, No Apparent Distress, Comfortable, Conversant and Obese; Negative Respiratory Distress
HEENT: Normocephalic, Atraumatic, Nose Appears Normal and Ears Appear Normal; Negative Oxygen
Respiratory: Clear to Auscultation and Non Labored Respirations; Negative Accessory Resp Muscle Use
Cardiac: Regular Rhythm and S1/S2
GI: Soft, Nontender, Nondistended and Normal Bowel Sounds
Skin: Warm and Dry
Neuro: Awake, Alert, Oriented and AO x 3
Psych: Calm and Intact Judgement/Insight
Data Reviewed
-
Labs: Labs Reviewed by me
--- NOTE | 2024-08-18 09:01 | W.PN.CD ---
Today's Communication / Plan
-
Plan for staged PCI of the LCx/Ramus today.
We will assess filling pressures at the time of cath.
Impression / Plan
-
Impression/Plan: 84 y/o male with moderate and CAD, initially planned for staged PCI, re-admitted with acute on chronic HFrEF and acute on chronic renal failure, now improving.
#HFrEF/ICM
-Tvnbu-bu-fzyurlr.
-LVEF 30-35%.
-RHC 08/12/2024 : CONCLUSION: 1. Moderately elevated filling pressures (PCWP = 22 mmHg at 109.3 kg). 2. Preserved cardiac function (cardiac index = 2.71 L/min/m�).
-GDMT:
-Diuretics: On hold. Re-evaluate filling pressures at cath.
-Beta blockers: Carvedilol 25 mg BID.
-ACEI/ARB/ARNi: On hold due to renal function.
-MRA: On hold due to renal function.
-SGLT2i: On hold due to renal function.
-ICD: Re-evaluate after revascularization and GDMT.
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
-Dr. Anne is outpatient hoister.
-Nephrology following.
-Baseline creatinine ~ 2.0. Patient is now back at baseline.
#CAD/Abnormal troponin:
-Denies CP.
-EKG stable.
-Troponin peaked at 4.230.
-NSTEMI versus type II [place] (in setting of anemia, hypoxia, renal dysfunction).
-Continue IV heparin, aspirin, carvedilol, ezetimibe, rosuvastatin.
-Plan for high risk PCI of LCx/Ramus today.
#Anemia
-Chronic, stable.
-Macrocytic.
-s/p IV iron.
-Check B12, folate, thiamine, reticulocytes and peripheral smear.
#Moderate :
- Continue to monitor over time by echo.
Subjective/Interval History:
Weight stable.
Renal function at baseline.
Data:
Echo 07/26/24:
CONCLUSIONS
Moderately dilated LV with moderately reduced systolic function.
LVEF is 30-35% by visual estimation. Inferior, anterior, and anterolateral
hypokinesis; the apex appears akinetic.
Stage II diastolic dysfunction suggestive of abnormal relaxation and increased
filling pressures.
Normal right ventricular size and function.
Mild mitral regurgitation.
Moderate aortic stenosis.
Estimated pulmonary artery pressure of 38 mmHg, assuming a right atrial
pressure of 3 mmHg.
Compared to prior from May 09, 2023, on [id number] comparison LVEF is now
moderate reduced estimated at 30-35%, previously 50-55%, and aortic stenosis is
now moderate, previously mild to moderate.
Cath 07/26/24:
CONCLUSIONS:
1. Right dominant circulation with chronic total occlusion of the ostial RCA, nonintervenable, diffuse disease in the distal/apical LAD, a 70% lesion in the proximal ramus followed by an 80% lesion in the mid ramus, immediately proximal to the
bifurcation point and an 80% lesion in the proximal/ostial circumflex.
2. Severely elevated filling pressures (LVEDP = 27 mmHg, PCWP = 30 mmHg at 113.9 kg) with evidence of diastolic dysfunction (A wave to 37 mmHg) and either severe mitral regurgitation or a noncompliant left atrium (V wave to 52 mmHg).
3. Mild/moderate postcapillary pulmonary hypertension (mean PA = 41 mmHg, PCWP = 30 mmHg, cardiac output = 5.93 L/min, PVR = 1.85 Wood units), WHO group 2.
4. Mild to moderate aortic valve stenosis on pullback (mean AV gradient = 25.7 mmHg, NICKIE = 1.41 cm�).
5. Significant anemia which may be affecting symptom burden.
RHC, 08/12/2024:
CONCLUSION:
1. Moderately elevated filling pressures (PCWP = 22 mmHg at 109.3 kg).
2. Preserved cardiac function (cardiac index = 2.71 L/min/m�).
Physical Exam
Vital Signs/Labs
Vital Signs
Temp Pulse Resp BP Pulse Ox
36.8 C 67 16 103/47 98
08/18/24 07:31 08/18/24 07:01 08/18/24 07:31 08/18/24 07:01 08/18/24 07:31
08/16/24 08/17/24 08/18/24
11:59 11:59 11:59
Actual Weight 107.8 kg 108.9 kg 107.8 kg
08/17/24 01:55
08/18/24 03:43
APTT 140.3 Sec (23.4-35.0) H 08/18/24 03:43
Magnesium 2.6 mg/dl (1.6-2.3) H 08/17/24 01:55
Triglycerides 88 mg/dl (10-149) 08/10/24 03:04
LDL Cholesterol, Calc 23 mg/dl 08/10/24 03:04
VLDL Cholesterol, Calc 17 mg/dl (0-30) 08/10/24 03:04
HDL Cholesterol 34 mg/dl 08/10/24 03:04
08/09/24
03:26
Umx-B-Qnpuyseetrz Pept [id number]
Physical Exam
Constitutional: No acute distress and Comfortable
EENT: Anicteric and Moist mucous membranes
Cardiovascular: Rhythm & rate is regular, Pedal edema is absent, JVD pressure is normal, S1S2 is normal and Murmur/rub/gallop absent
Respiratory: Respiratory effort normal, Lungs clear to auscul., Wheeze Absent, Crackles Absent and Rhonchi Absent
GI: Soft, Distention absent, Flat, Non tender and Normal bowel sounds
Neuro/Psych: AO x 3
Data Reviewed
-
Date of Service: August 18, 2024
Medical Decision Making: Reviewed Test Results, Tests Ordered, Independent Historian Assessment and Test Interpretation
EKG: Tracing Personally Visualized and interpreted and Report Reviewed by me
Echo: Report Reviewed by me
X-Ray/CT/US/MRI/NUC/PET: Image Personally Visualized and interpreted and Report Reviewed by me
Medical Tests (PFT, Pathology etc): Image Personally Visualized and interpreted, Report Reviewed by me, Discussed with Physician, Discussed with Patient and Discussed with Family
Labs: Labs Reviewed by me
Old Records: Reviewed
--- NOTE | 2024-08-18 10:42 | W.PN.NEPH.PH ---
Today's Communication / Plan
-
IVF for [facility]
Assessment/Plan
-
IMP:
Non-STEMI
ASCVD
Acute on chronic HFrEF
Echo 07/26/2024 with EF 30 to 35%, mod
Acute kidney injury on CKD stage IIIb baseline cr 2, follow Dr Myers
Hyperkalemia
Anemia
Hypertension
Poorly controlled diabetes
Hyperlipidemia
History of carotid endarterectomy
Sleep apnea
Obesity
hypervolemic hyponatremia
PCWP 30 on 07/26 with wt 113.9kg
Plan:
A/w sob, recent diagnosis of MVD and need of High risk PCI
SERA-cr at baseline 2, lasix on hold
RHC 08/12 shows PCWP 22 , wt is down since
maintain FR 48 ounces/day
bp stable, continue to hold ARB
fort [facility] today with prophylactic bicarb IVF
follow daily wts and labs
Discussed with family at bedside. Patient aware risk-benefit ratio and EMILY risk
-
-
Date of Service: August 18, 2024
CC / HPI / ROS
-
Chief Complaint:
Sera with CKD
History of Present Illness:
cr stable at 2, k normal
sodium better at 135
Bp stable
hgb stable at 8.6 ,on iv heparin gtt
Review of Systems:
no sob, can not lay flat -chronically
wt is stable
no cp
Labs
-
Labs:
WBC 9.2 10^3/uL (4.8-10.8) 08/17/24 01:55
RBC 2.60 10^6/uL (4.70-6.10) L 08/17/24 01:55
Hgb 8.3 g/dL (13.0-18.0) L 08/17/24 01:55
Hct 24.5 % (39.0-52.0) L 08/17/24 01:55
Plt Count 189 10^3/uL (130-400) 08/17/24 01:55
Sodium 135 mmol/L (135-145) 08/18/24 03:43
Potassium 4.7 mmol/L (3.5-5.1) 08/18/24 03:43
Chloride 108 mmol/L (98-107) H 08/18/24 03:43
Carbon Dioxide 20 mmol/L (22-30) L 08/18/24 03:43
BUN 59 mg/dl (9-20) H 08/18/24 03:43
Creatinine 2.0 mg/dL (0.7-1.3) H 08/18/24 03:43
eGFR 32.51 08/18/24 03:43
Glucose 151 mg/dl (70-99) H 08/18/24 03:43
Calcium 8.9 mg/dl (8.4-10.2) 08/18/24 03:43
Rmr-N-Cviiugbzjon Pept 35803 pg/ml 08/09/24 03:26
Albumin 3.2 g/dl (3.5-5.0) L 08/10/24 03:04
Physical Exam
-
Vital Signs:
Vital Signs
Temp Pulse Resp BP Pulse Ox
98.3 F 67 16 103/47 98
08/18/24 07:31 08/18/24 07:01 08/18/24 07:31 08/18/24 07:01 08/18/24 07:31
Cardiovascular:: Regular rate and rhythm
Respiratory:: Bilateral: CTA
Lung Excursion:: Normal
Extremity Edema:: +1: Bilateral:
Zavala Catheter: No
--- NOTE | 2024-08-18 10:49 | VATNOTE ---
Saw pt to evaluate area of infiltration in his R arm from 08/15. Noted an approximately 2 cm sized lump in the cephalic area of the R antecubital fossa. Pt describes discomfort at the site. Not erythema or dependent edema noted. Peripheral vascular
ultrasound from 08/15 reviewed. Spoke with PCN to review with [facility] to see if extremity needs to be restricted. Instructed PCN and PCT to continue to apply warm compresses to help with discomfort and healing.
--- NOTE | 2024-08-18 11:22 | PTCARENOTE ---
Pt w/ superficial thrombus in R cephalic vein. Per Dr. Ahumada there is no need for RUE restriction.
[2024-08-18 11:25] LABS: Glucose - Point of Care 176 mg/dl (70-99)
--- NOTE | 2024-08-18 11:51 | PTCARENOTE ---
Pt w/ superficial thrombus w/in R cephalic vein confirmed with u/s on 08/15. VAT team at bedside to assess R arm. Warm compress applied. Pt states area is 'a little sore to the touch.' Per Dr. Ahumada there is no need for RUE restriction.
[2024-08-18] MEDS: SODIUM BICARBONATE 1150 MEQ IV (12:22)
[2024-08-18 13:22] LABS: APTT 62.6 Sec (23.4-35.0)
--- NOTE | 2024-08-18 15:22 | CM ---
CM following for DC planning needs.
Met w/ patient, spouse and other family at bedside. Pt. is anticipating a procedure today.
Reviewed initial assessment. Pt. resides in a private, [address] [place] [address]/ [facility]. Functionally, patient is indep. prior to admission w/ ADLs, mobility without the use of any assisted device.
Antic. DC plan is for home, no needs.
CM to follow.
--- NOTE | 2024-08-18 16:05 | ITS.CL.ANGIO ---
[facility] - Angioplasty
Angioplasty
Procedure Report:
CARDIAC CATHETERIZATION REPORT
Date of Procedure: 08/19/2019
Referring: Charlie Adorno M.D.
INDICATION: High risk PCI for ostial ramus/circumflex disease with non-ST elevation myocardial infarction, recent heart failure with reduced ejection fraction and acute on chronic renal failure.
PROCEDURE:
1. Left-sided coronary angiography.
2. Successful PCI of the mid ramus.
3. Successful PCI of the ostial/proximal ramus.
4. Successful PCI of the ostial/proximal circumflex.
5. Successful simultaneous kissing balloon post dilation of the ramus and circumflex stents.
6. Left heart catheterization.
A total of 65 minutes of procedural/moderate sedation was utilized. An independent medical van driver was present to assist with and help manage the patient's level of consciousness and physiologic status.
ACCESS:
1. 7 Congolese right common femoral artery using a modified Seldinger technique with a micropuncture kit under ultrasound guidance.
CATHETERS:
1. 7 Congolese EBU 4.0 guiding catheter.
2. 6 Congolese pigtail.
HEMODYNAMIC DATA
Weight (kg): 107.5
AO (s/d/x, mmHg): 135/62/91
LV (s/x mmHg): 152/25 (A wave to 33)
LEFT VENTRICULOGRAPHY: Not performed.
CORONARY ANGIOGRAPHY
Dominance: Right.
Left Main: Normal size, trifurcating vessel. There is no coronary artery disease.
LAD: Normal size vessel with luminal regularities in the proximal vessel and diffuse, densely calcified, nonintervenable disease in the distal and apical LAD.
Ramus: Medium to large size vessel supplying the majority of the anterolateral wall. There is an 80% lesion in the proximal vessel. There is an 80% lesion in the mid vessel, immediately proximal to a bifurcation point.
Circumflex: Normal size, nondominant vessel giving rise to several small vestigial obtuse marginals then terminating as a fairly sized left posterolateral branch supplying the inferolateral wall.
RCA: Not injected. Known to be a small size, dominant vessel that is chronically totally occluded at its origin.
INTERVENTION(S)
1. Successful PCI of the 80% mid ramus lesion (Medtronic [employer] [place] 2.0 x 26 MINYD, postdilated with a 2.25 NC balloon throughout) with reduction in stenosis to 0%, maintaining DILLON-3 flow.
2. Successful PCI of the 80% ostial/proximal ramus lesion (Medtronic Guevara [place] 2.25 x 15 MINDY, postdilated with a 2.5 NC balloon throughout) with reduction in stenosis to 0%, maintaining DILLON-3 flow.
3. Successful PCI of the 80% ostial/proximal circumflex lesion ([employer] [place] 3.0 x 30 MINDY, postdilated with a 3.0 NC balloon throughout) with reduction in stenosis to 0%, maintaining DILLON-3 flow.
4. Successful simultaneous kissing balloon in the ostia of the ramus (2.5 x 20 Euphora NC) and circumflex (3.0 x 20 Euphora NC).
5. Successful IVUS of the proximal LAD and left main coronary artery, demonstrating preserved architecture with no evidence of stent protrusion.
Narrative:
The decision was made to proceed with percutaneous coronary intervention. The 7Fr EBU 4.0 guiding catheter was advanced to the aortic root and seated in the left main coronary artery. Additional heparin was given and a Power Turn Flex wire was
advanced into the distal ramus. A BMW wire was advanced into the distal LAD for protection. A run-through wire was advanced into the distal circumflex. The 80% mid ramus and ostial/proximal ramus lesions were predilated with a 2.0 x 12
semi-compliant balloon to 12 vivek.
The decision was made to perform intracoronary imaging. An IVUS catheter was advanced through the guiding catheter and into the ostium of the artery. Ring down was performed once the imaging crystal was no longer inside of the guiding catheter. The
IVUS catheter was advanced into the left main coronary artery, but would not advance into the ramus due to significant calcification and residual stenosis burden.
The IVUS catheter was removed. A 2.25 x 15 semicompliant balloon was advanced and the mid and proximal/ostial ramus lesions were predilated again. Again, IVUS was attempted after more aggressive predilation, and again the IVUS catheter would not
advance.
We then turned our attention to the circumflex. A 3.0 x 15 noncompliant balloon was advanced into the proximal circumflex. The 80% lesion was dilated to 14 vivek with good balloon expansion. The noncompliant balloon was withdrawn and the IVUS
catheter was advanced into the circumflex over the run-through wire, but had difficulty taking the turn into the circumflex. IVUS was abandon for this vessel as well.
We then turned our attention back to the ramus. A 2.25 x 12 noncompliant balloon was advanced into the ramus. The mid ramus lesion was dilated to 12 vivek. The ostial/proximal ramus lesion was dilated to 14 vivek. The noncompliant balloon was
removed and a Medtronic Gue[place] [place] 2.0 x 26 MINDY was advanced. Meticulous care was taken positioning the stent, ensuring that the entire mid lesion was covered. The stent was deployed at 12 vivek. The stent balloon was withdrawn. A Medtronic
Guevara [place] 2.25 x 15 drug-eluting stent was advanced into the proximal lesion and maintained in position while we position to the circumflex stent.
A Medtronic Guevara [place] 3.0 x 30 drug-eluting stent was advanced over the run-through wire and into the left circumflex. Once in position, the stent was slowly pulled back to the ostium of the vessel, ensuring that the entire lesion up to the
ostium of the left circumflex would be covered on stent deployment. The ramus stent was similarly pulled back, ensuring that the entire ostial lesion would be covered without intruding into the left main coronary artery. This also confirmed that
the ramus stents would be overlapping. When we were satisfied with both stent locations, the ramus stent was deployed at 12 vivek and the balloon was deflated. The left circumflex stent was also deployed at 12 vivek and then deflated. The stent
delivery balloons were pulled back approximately 2 mm into the left main and simultaneous inflation was performed at 12 vivek for 15 seconds. Both balloons were deflated and the stent balloons were withdrawn.
A 2.5 x 20 NC balloon was advanced into the ramus. The mid ramus including the stent overlap was dilated to 12 vivek. A 3.0 x 20 NC balloon was advanced into the circumflex artery. The distal stent margin was postdilated to 14 vivek. Both balloons
were pulled back to the ostium of the respective vessels. The ramus balloon was inflated to 14 vivek then deflated. The circumflex balloon was inflated to 14 vivek and then deflated. Both balloons were slightly pulled back into the left main and a
kissing inflation was performed at 14 vivek. Both noncompliant balloons were withdrawn.
IVUS was performed over the BMW wire in the LAD. This demonstrated a calcified LAD vessel without discrete stenosis in its ostial margin. We also imaged the left main coronary artery which demonstrated no evidence of stent protrusion or
disruption. The IVUS catheter was withdrawn.
Angiography was performed in orthogonal views, confirming good stent expansion and an excellent angiographic result. The coronary wire was withdrawn and the guide was disengaged from the artery. The catheter was removed over a standard J-wire.
Closure Device: 8 Congolese Angio-Seal.
Radiation (mGy): 759
DAP (cm2.Gy): 59.4
Fluoroscopy time (minutes): 14.3
CONCLUSIONS
1. Right dominant circulation with known chronic total occlusion of the ostial RCA, moderate, diffuse disease of the distal LAD that is not amenable to intervention, and 80% mid ramus lesion status post PCI (Medtronic Gue[employer] [place] 2.0 x 26 MINDY,
postdilated with a 2.25 NC balloon throughout), and 80% ostial/proximal ramus lesion status post successful PCI (Medtronic G[employer] [place] 2.25 x 15 IMNDY, postdilated with a 2.5 NC balloon throughout) and an 80% ostial/proximal circumflex lesion,
status post successful PCI ([employer] [place] 3.0 x 30 MINDY, postdilated with a 3.0 NC balloon throughout), followed by simultaneous kissing balloon inflation of the ramus/circumflex stents (2.5 x 20 Euphora NC and 3.0 x 24 NC) with reduction
in all stenoses to 0%, maintaining DILLON-3 flow, without protrusion or obstruction of the left main or ostial LAD, confirmed on IVUS.
2. Severely elevated filling pressures (LVEDP = 25 mmHg at 107.5 kg) with evidence of diastolic dysfunction (A wave to 33 mmHg).
3. Chronic renal failure. An absolute paucity of contrast was used for the procedure.
RECOMMENDATIONS:
1. Expectant management after cardiac catheterization via right common femoral approach.
2. Limited weight bearing for one week.
3. Dual antiplatelet therapy with aspirin and clopidogrel for at least 12 months, possibly lifelong given stent burden and location.
4. OMT/GDMT as hemodynamics will tolerate.
5. Resume diuresis given severe elevation in filling pressures.
6. Monitor renal function given administration of contrast with chronic kidney disease.
7. Aggressive secondary prevention with high-dose, high potency statin and ezetimibe.
8. Referral to cardiac rehab.
Copy to: Wyatt Boyd D.O., Kim Mcarthur M.D., Charlie Adorno M.D., Dutch Andrade M.D., PhD
Abhi Sutton DO, FACC, FACP
[2024-08-18] MEDS: CRESTOR 40 MG PO (17:39)
[2024-08-18] MEDS: ZETIA 10 MG PO (17:39)
[2024-08-18 18:22] LABS: Glucose - Point of Care 140 mg/dl (70-99)
[2024-08-18] MEDS: NOVOLOG FLEXPEN 5 UNITS SC (18:25)
[2024-08-18] MEDS: NOVOLOG FLEXPEN-MODERATE RESISTANCE SC (18:25)
[2024-08-18 21:05] LABS: Glucose - Point of Care 255 mg/dl (70-99)
[2024-08-18] MEDS: LANTUS 0.18 UNITS SC (23:02)
[2024-08-18] MEDS: SENOKOT 8.6 MG PO (23:02)
--- NOTE | 2024-08-19 00:53 | PTCARENOTE ---
Rec'd at change of shift. SR on TELE, VSS, and AAO*3. Pt denies any pain or discomfort. R femoral dressing CDI. Pt resting with call small in reach. Plan of care ongoing. See MAR and flowchart for full pt care and assessment.
[2024-08-19 02:22] VITALS: BP 115/58
[2024-08-19 02:24] VITALS: BMI 35.0
[2024-08-19 02:53] LABS: Hematocrit 23.1 % (39.0-52.0); Hemoglobin 7.8 g/dL (13.0-18.0); Mean Corp Hgb Conc. 33.8 g/dL (33.0-37.0); Mean Corpuscular Hgb 32.4 pg (27.0-31.0); Mean Corpuscular Volume 95.9 fL (80.0-94.0); Mean Platelet Volume 9.4 fL (7.4-10.4); Platelet Count 182 10^3/uL (130-400); Red Blood Cell Count 2.41 10^6/uL (4.70-6.10); Red Cell Dist. Width 13.3 % (11.5-14.5); White Blood Cell Count 8.4 10^3/uL (4.8-10.8)
[2024-08-19 03:12] LABS: Blood Urea Nitrogen 47 mg/dl (9-20); Calcium 8.8 mg/dl (8.4-10.2); Carbon Dioxide 23 mmol/L (22-30); Chloride 108 mmol/L (98-107); Estimated Creatinine Clearance 38 ml/min; Glucose 146 mg/dl (70-99); Potassium 4.5 mmol/L (3.5-5.1); Sodium 135 mmol/L (135-145); eGFR 36.89
--- NOTE | 2024-08-19 07:34 | W.PN.CD ---
Today's Communication / Plan
-
Start furosemide 80 mg PO daily (given LVEDP 25 mg at time of cath).
DAPT with ASA/clopidogrel for at least 12 months.
Start losartan 25 mg daily (half of home dose).
Hold SGLT2i until BMP in one week.
Resume metformin tomorrow.
Resume home B12 and start MVI (with folate).
CBC in one week.
Discharge planning.
Impression / Plan
-
Impression/Plan: 84 y/o male with moderate and CAD, initially planned for staged PCI, re-admitted with acute on chronic HFrEF and acute on chronic renal failure, now improving.
#HFrEF/ICM
-[id number]-zhimrpk.
-LVEF 30-35%.
-[facility] 08/12/2024 : CONCLUSION: 1. Moderately elevated filling pressures (PCWP = 22 mmHg at 109.3 kg). 2. Preserved cardiac function (cardiac index = 2.71 L/min/m�).
-C 08/19/2024: LVEDP 25 mg at 107.5 kg.
-GDMT:
-Diuretics: Start furosemide 80 mg PO daily. Home dose of 40 mg likely ineffective.
-Beta blockers: Carvedilol 25 mg BID.
-ACEI/ARB/ARNi: Resume losartan at 25 mg daily (home dose).
-MRA: On hold due to renal function. We will consider as an outpatient.
-SGLT2i: On hold due to renal function. Restart
-ICD: Re-evaluate after revascularization and GDMT.
-Outpatient BMP in one week, at which time we can consider re-starting dapagliflozin.
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
-Nephrology following.
-Baseline creatinine ~ 2.0. Patient is now back at baseline.
-Resuming diuresis and lower dose of losartan. Outpatient BMP in one week.
-Ok to resume metformin tomorrow.
#CAD/Abnormal troponin:
-Denies CP.
-EKG stable.
-Troponin peaked at 4.230.
-NSTEMI versus type II UT (in setting of anemia, hypoxia, renal dysfunction).
-S/P PCI to the mid-RI (Medtronic [place] 2.0 x 26, post dilated with a 2.25 NCB), ostial/prox-RI ([employer]tronic [place] 2.25 x 15 MINDY, post dilated with 2.5 NCB) and ostial/prox LCx (Medronic Guevara 3.0 x 30 MINDY, post dilated with 3.0 NCB) with final kissing
balloon inflation.
-Continue aspirin, clopidogrel, carvedilol, ezetimibe, rosuvastatin.
#Anemia
-Chronic, stable.
-Macrocytic.
-s/p IV iron.
-B12, folate, thiamine, reticulocytes and peripheral smear pending.
-Start MVI and resume home B12/ferrous sulfate.
-Ideally, I would prefer H/H > 8/24, but he is fairly close. Outpatient CBC in one week (at the time of BMP).
#Moderate :
- Continue to monitor over time by echo.
Subjective/Interval History:
Successful PCI of the ostial RI and ostial LCx yesterday.
LVEDP at cath remains severely elevated.
Feels well.
Data:
Echo 07/26/24:
CONCLUSIONS
Moderately dilated LV with moderately reduced systolic function.
LVEF is 30-35% by visual estimation. Inferior, anterior, and anterolateral
hypokinesis; the apex appears akinetic.
Stage II diastolic dysfunction suggestive of abnormal relaxation and increased
filling pressures.
Normal right ventricular size and function.
Mild mitral regurgitation.
Moderate aortic stenosis.
Estimated pulmonary artery pressure of 38 mmHg, assuming a right atrial
pressure of 3 mmHg.
Compared to prior from May 09, 2023, on [id number] comparison LVEF is now
moderate reduced estimated at 30-35%, previously 50-55%, and aortic stenosis is
now moderate, previously mild to moderate.
Cath 07/26/24:
CONCLUSIONS:
1. Right dominant circulation with chronic total occlusion of the ostial RCA, nonintervenable, diffuse disease in the distal/apical LAD, a 70% lesion in the proximal ramus followed by an 80% lesion in the mid ramus, immediately proximal to the
bifurcation point and an 80% lesion in the proximal/ostial circumflex.
2. Severely elevated filling pressures (LVEDP = 27 mmHg, PCWP = 30 mmHg at 113.9 kg) with evidence of diastolic dysfunction (A wave to 37 mmHg) and either severe mitral regurgitation or a noncompliant left atrium (V wave to 52 mmHg).
3. Mild/moderate postcapillary pulmonary hypertension (mean PA = 41 mmHg, PCWP = 30 mmHg, cardiac output = 5.93 L/min, PVR = 1.85 Wood units), WHO group 2.
4. Mild to moderate aortic valve stenosis on pullback (mean AV gradient = 25.7 mmHg, NICKIE = 1.41 cm�).
5. Significant anemia which may be affecting symptom burden.
[facility], 08/12/2024:
CONCLUSION:
1. Moderately elevated filling pressures (PCWP = 22 mmHg at 109.3 kg).
2. Preserved cardiac function (cardiac index = 2.71 L/min/m�).
Cath/PCI, 08/18/2024:
CONCLUSIONS
1. Right dominant circulation with known chronic total occlusion of the ostial RCA, moderate, diffuse disease of the distal LAD that is not amenable to intervention, and 80% mid ramus lesion status post PCI (Medtronic [employer] [place] 2.0 x 26 MINDY,
postdilated with a 2.25 NC balloon throughout), and 80% ostial/proximal ramus lesion status post successful PCI (Medtronic Beatty [place] 2.25 x 15 MINDY, postdilated with a 2.5 NC balloon throughout) and an 80% ostial/proximal circumflex lesion,
status post successful PCI (Medtronic Beatty [place] 3.0 x 30 MINDY, postdilated with a 3.0 NC balloon throughout), followed by simultaneous kissing balloon inflation of the ramus/circumflex stents (2.5 x 20 Euphora NC and 3.0 x 24 NC) with reduction
in all stenoses to 0%, maintaining DILLON-3 flow, without protrusion or obstruction of the left main or ostial LAD, confirmed on IVUS.
2. Severely elevated filling pressures (LVEDP = 25 mmHg at 107.5 kg) with evidence of diastolic dysfunction (A wave to 33 mmHg).
3. Chronic renal failure. An absolute paucity of contrast was used for the procedure.
Physical Exam
Vital Signs/Labs
Vital Signs
Temp Pulse Resp BP Pulse Ox
36.8 C 57 18 115/58 98
08/19/24 02:22 08/19/24 05:00 08/19/24 02:22 08/19/24 02:22 08/19/24 02:22
08/17/24 08/18/24 08/19/24
11:59 11:59 11:59
Actual Weight 108.9 kg 107.8 kg 107.4 kg
08/19/24 02:32
08/19/24 02:31
APTT 62.6 Sec (23.4-35.0) H 08/18/24 12:46
Magnesium 2.6 mg/dl (1.6-2.3) H 08/17/24 01:55
Triglycerides 88 mg/dl (10-149) 08/10/24 03:04
LDL Cholesterol, Calc 23 mg/dl 08/10/24 03:04
VLDL Cholesterol, Calc 17 mg/dl (0-30) 08/10/24 03:04
HDL Cholesterol 34 mg/dl 08/10/24 03:04
08/09/24
03:26
Alo-W-Xilwgopysrf Pept [id number]
Physical Exam
Constitutional: No acute distress and Comfortable
EENT: Anicteric and Moist mucous membranes
Cardiovascular: Rhythm & rate is regular, Pedal edema is absent, JVD pressure is normal, S1S2 is normal and Murmur/rub/gallop absent
Respiratory: Respiratory effort normal, Lungs clear to auscul., Wheeze Absent, Crackles Absent and Rhonchi Absent
GI: Soft, Distention absent, Flat, Non tender and Normal bowel sounds
Neuro/Psych: AO x 3
Other: Cath Site (Right femoral access site is C/D/I.)
Data Reviewed
-
Date of Service: August 19, 2024
Medical Decision Making: Reviewed Test Results, Independent Historian Assessment and Test Interpretation
EKG: Tracing Personally Visualized and interpreted and Report Reviewed by me
Echo: Report Reviewed by me
X-Ray/CT/US/MRI/NUC/PET: Image Personally Visualized and interpreted and Report Reviewed by me
Medical Tests (PFT, Pathology etc): Image Personally Visualized and interpreted, Report Reviewed by me, Discussed with Patient and Discussed with Family
Labs: Labs Reviewed by me
Old Records: Reviewed
[2024-08-19 07:58] VITALS: BP 132/62
[2024-08-19 08:21] LABS: Glucose - Point of Care 180 mg/dl (70-99)
[2024-08-19 08:40] LABS: Reticulocyte Count 2.4 % (0.4-2.8)
[2024-08-19 08:56] VITALS: BP 108/50
[2024-08-19] MEDS: NOVOLOG FLEXPEN 5 UNITS SC (08:58)
[2024-08-19] MEDS: NOVOLOG FLEXPEN-MODERATE RESISTANCE 1 UNITS SC (08:59)
[2024-08-19] MEDS: MIRALAX 17 GRAMS PO (09:00)
[2024-08-19] MEDS: LASIX 80 MG PO (09:00)
[2024-08-19] MEDS: PLAVIX 75 MG PO (09:01)
[2024-08-19] MEDS: VITAMIN B-12 1000 MCG PO (09:01)
[2024-08-19] MEDS: COREG 25 MG PO (09:01)
[2024-08-19] MEDS: LOW STRENGTH ASPIRIN 81 MG PO (09:01)
[2024-08-19] MEDS: COZAAR 25 MG PO (09:01)
[2024-08-19 09:02] VITALS: BP 112/50
[2024-08-19] MEDS: THERAGRAN 1 TABLET PO (09:02)
[2024-08-19 09:10] VITALS: BP 108/50; BP 112/50; PULSE 60; O2SAT 96
--- NOTE | 2024-08-19 09:56 | W.PN.HOSP.TC ---
Addendum entered and electronically signed by Alisson Ahumada MD 08/20/24 13:23:
# troponin elevation due to NSTEMI
Addendum entered and electronically signed by Alisson Ahumada MD 08/19/24 14:26:
total DC time 40 min
Original Note:
Today's Communication/Plan
-
DC home today
Assessment / Plan
Assessment / Plan
84-year-old M p/w shortness of breath for 2 weeks with palpitations and fatigue.
Cardiac cath 07/26/2024 revealed multivessel disease with elevated filling pressures. Lasix was increased. Planned for staged PCI of the left circumflex and ramus on 08/16/2024.
About a week ago, he was advised to stop Lasix/Farxiga/losartan for the upcoming cath. He gained 4 pounds.
Echo 07/26/2024-moderately dilated LV with moderately reduced systolic function. EF 30 to 35%. Inferior, anterior, anterolateral hypokinesis. Stage II diastolic dysfunction. Mild MR. Moderate . Pulmonary artery pressure of 38 mmHg.
Status post right heart cath on 08/13/2024-wedge pressure 22 mmHg
A/P:
# Acute on chronic HFrEF
resume PO lasix 80 mg daily
Monitor intake output, daily weights. Weight better and less than his 'dry weight'
Echo 07/26/2024 with EF 30 to 35%
# Troponin elevation 2/2 ischemic myocardial injury
# ASCVD
Troponin trended down from 4.2 to 3.9
was planned for high risk PCI was planned for 08/16/2024 as outpatient prior to admission
Right heart cath on 08/12/2024 with elevated wedge pressure 22 mmHg
s/p diagnostic Left heart cath 08/17, and therapeutic LHC 08/18 with PCI x3 over mid ramus lesion, ostial/proximal ramus, ostial/proximal circumflex lesion
Cont ASA/clopidogrel for at least 12 months.
Start losartan 25 mg daily (half of home dose).
Holding Farxiga until outpt BMP
# Acute kidney injury on CKD stage III
# Hyperkalemia, resolved
Creatinine 2.7 (peak) to 1.8 today
Follow creatinine
resume metformin outpt
resume half dose losartan
Cont to hold Farxiga
Nephrology evaluation appreciated
# Anemia, likely secondary to chronic kidney disease
# Iron deficiency noted
Completed IV iron
# Hypertension
continue Coreg with hold parameter
resume half dose losartan
BP stable
# Poorly controlled diabetes
A1C 6.9%
Hold Farxiga/Hold metformin with elevated creatinine
Cont increased Lantus at 18 units HS (FUEL CELL BINDER at 16 units HS)
Added Novolog, increased to 5 units AC
Accu-Cheks and sliding scale coverage
# R arm swelling due to IV access
US No evidence of right upper extremity DVT. Superficial thrombus within the right cephalic vein in the region of the antecubital fossa. No thrombus within the central cephalic vein.
# Hyperlipidemia-continue Zetia and statin
# History of carotid endarterectomy
# Sleep apnea-continue PAP therapy
# Obesity with BMI 37
# History of prostate cancer
Full code
DW Card
DW at bedside
Anticipated Discharge: Today
Subjective/Interval History
-
Date of Service: August 19, 2024
Objective Data
-
Labs:
Laboratory Results
08/19/24 08/19/24
02:31 02:32
WBC 8.4
Hgb 7.8 L
Hct 23.1 L
Plt Count 182
Sodium 135
Potassium 4.5
Chloride 108 H
Carbon Dioxide 23
BUN 47 H
Creatinine 1.8 H
Glucose 146 H
Calcium 8.8
Vital Signs:
Vital Signs
Temp Pulse Resp BP Pulse Ox
36.7 C 62 18 112/50 98
08/19/24 07:58 08/19/24 09:02 08/19/24 07:58 08/19/24 09:02 08/19/24 07:58
I&O
08/18/24 08/19/24 08/20/24
06:59 06:59 06:59
Intake Total 480 / 480 2240 / 2240 650 / 650
Output Total 1999 / 1999 1600 / 1600 500 / 500
Balance -1520 / -1520 640 / 640 150 / 150
Review of Systems
-
History Source: Patient
All other systems: Reviewed and negative
Physical Exam
-
General: Well Developed, Well Nourished, No Apparent Distress, Comfortable, Conversant and Obese; Negative Respiratory Distress
HEENT: Normocephalic, Atraumatic, Nose Appears Normal and Ears Appear Normal; Negative Oxygen
Respiratory: Clear to Auscultation and Non Labored Respirations; Negative Accessory Resp Muscle Use
Cardiac: Regular Rhythm and S1/S2
GI: Soft, Nontender, Nondistended and Normal Bowel Sounds
Skin: Warm and Dry
Neuro: Awake, Alert, Oriented and AO x 3
Psych: Calm and Intact Judgement/Insight
Data Reviewed
-
Labs: Labs Reviewed by me
[2024-08-19 10:41] LABS: Iron 78 ug/dl (49-181)
[2024-08-19 10:51] LABS: Percent Saturation 26 % (20-50); Total Iron Binding Capacity 296 ug/dl (261-462)
[2024-08-19 11:47] VITALS: BP 109/52
--- NOTE | 2024-08-19 11:52 | W.PN.NEPH.PH ---
Today's Communication / Plan
-
ok for d/c
f/u nephro, labs on Friday
Assessment/Plan
-
IMP:
Non-STEMI
ASCVD
Acute on chronic HFrEF
Echo 07/26/2024 with EF 30 to 35%, mod
Acute kidney injury on CKD stage IIIb baseline cr 2, follow Dr Myers
Hyperkalemia
Anemia
Hypertension
Poorly controlled diabetes
Hyperlipidemia
History of carotid endarterectomy
Sleep apnea
Obesity
hypervolemic hyponatremia
PCWP 30 on 07/26 with wt 113.9kg
Plan:
A/w sob, recent diagnosis of MVD and need of High risk PCI
cr at baseline 1.8 today, need to trend cr
post contrast for LHC on 08/18, s/p PCIs
cece on lasix, Losartan resumed per cards
maintain FR 48 ounces/day
bp stable, back on low dose ARB
follow h/h has been 8 range, adequate fe stores
BMP to be done on Friday
f/u with Dr Myers
-
-
Date of Service: August 19, 2024
CC / HPI / ROS
-
Chief Complaint:
Sera with CKD
History of Present Illness:
cr stable at 1.8, k normal
sodium better at 135
Bp stable
hgb low 7.8
Review of Systems:
no sob, can not lay flat -chronically
wt is stable
no cp
Labs
-
Labs:
WBC 8.4 10^3/uL (4.8-10.8) 08/19/24 02:32
RBC 2.41 10^6/uL (4.70-6.10) L 08/19/24 02:32
Hgb 7.8 g/dL (13.0-18.0) L 08/19/24 02:32
Hct 23.1 % (39.0-52.0) L 08/19/24 02:32
Plt Count 182 10^3/uL (130-400) 08/19/24 02:32
Sodium 135 mmol/L (135-145) 08/19/24 02:31
Potassium 4.5 mmol/L (3.5-5.1) 08/19/24 02:31
Chloride 108 mmol/L (98-107) H 08/19/24 02:31
Carbon Dioxide 23 mmol/L (22-30) 08/19/24 02:31
BUN 47 mg/dl (9-20) H 08/19/24 02:31
Creatinine 1.8 mg/dL (0.7-1.3) H 08/19/24 02:31
eGFR 36.89 08/19/24 02:31
Glucose 146 mg/dl (70-99) H 08/19/24 02:31
Calcium 8.8 mg/dl (8.4-10.2) 08/19/24 02:31
Qyp-U-Zxzrxtujlgm Pept [id number] pg/ml 08/09/24 03:26
Albumin 3.2 g/dl (3.5-5.0) L 08/10/24 03:04
Physical Exam
-
Vital Signs:
Vital Signs
Temp Pulse Resp BP Pulse Ox
97.6 F 60 16 109/52 98
08/19/24 11:47 08/19/24 11:47 08/19/24 11:47 08/19/24 11:47 08/19/24 11:47
Cardiovascular:: Regular rate and rhythm
Respiratory:: Bilateral: CTA
Lung Excursion:: Normal
Extremity Edema:: +1: Bilateral:
Zavala Catheter: No
--- NOTE | 2024-08-19 12:04 | CM ---
CM following for DC planning needs.
Met w/ patient at bedside.
Patient is anticipating DC today. He offers no concerns or needs at this time.
Offered VN, patient declined.
Plan is for home, no needs.
--- NOTE | 2024-08-19 13:54 | W.DCSUMMARY ---
Discharge Summary
Discharge Data
Date of Admission: 08/09/24
Date of Discharge: 08/19/24
-
Pending Results: No
Hospital Course
Principal Diagnosis:
Acute on chronic HFrEF
Troponin elevation 2/2 ischemic myocardial injury
Acute kidney injury on CKD stage III
Chronic Diagnoses:�
Anemia, likely secondary to chronic kidney disease
Iron deficiency noted. Completed IV iron
Hypertension
Type II diabetes. A1C 6.9%. Started insulin this admission
Hyperlipidemia-continue Zetia and statin
History of carotid endarterectomy
Sleep apnea-continue PAP therapy
Obesity with BMI 37
History of prostate cancer
Consultations:�
Cardiology
Nephrology
Procedures:�
Stage left heart catheterization
Clinical course:�
This is a 84-year-old male with past medical history as stated above, who presented with shortness of breath.
His recent left heart cardiac cath on 07/26/2024 showed multivessel disease with elevated filling pressures.
He is also status post recent right heart cath on 08/13/2024, which showed elevated wedge pressure 22 mmHg.
Problem 1:
Acute on chronic HFrEF.
His Echo from 07/26/2024 showed an EF 30 to 35%
The patient was temporarily on IV Lasix which was put on hold due to rising serum creatinine.
He can resume oral Lasix 80 mg daily following discharge.
He has been informed to check repeat BMP in 1 week with result to his PCP.
Problem 2:
Troponin elevation 2/2 ischemic myocardial injury.
His troponin peaked at 4.2.
He underwent diagnostic Left heart cath (LHC) on 08/17, with subsequent therapeutic LHC on 08/18: 3 PCI placed over mid ramus lesion, ostial/proximal ramus, and ostial/proximal circumflex lesions.
He can continue ASA/clopidogrel for at least 12 months.
He can restart prior to admission losartan at half the dose at 25 mg daily.
He has been informed to hold Farxiga until repeat BMP outpatient result.
Problem 3:
Acute kidney injury on CKD stage III.
Creatinine improved from 2.7 (peak) to 1.8 on the day of discharge.
He can restart half dose losartan as stated above.
He has been informed to check repeat BMP outpatient in 1 week with result to his PCP.
His prior to admission metformin can be resumed following discharge, and he has been informed to hold Farxiga until BMP result is available.
Problem 4:
Poorly controlled diabetes. A1C 6.9%.
His Lantus dose was increased from 16 units to 18 units at bedtime.
Mealtime NovoLog was added this admission and he can continue at 5 units AC going forward.
He can continue metformin, but hold Farxiga until outpatient BMP result is available.
As for the rest of his medical problems, they were stable during his hospital stay.
Discharge Plan
-
Patient Disposition: Home (Routine Discharge)
Discharge Diagnosis/Procedures: Acute on chronic heart failure (HFrEF, EF 30-35%);
Ischemic myocardial injury status post angioplasty and stent x2 to Ramus, x1 to Left Circumflex arteries;
Acute kidney injury on CKD stage III (Cr at 1.8 on discharge);
Insulin dependent diabetes
Condition: Fair
Diet: As tolerated, Low Fat, Low Cholesterol, Low Sodium and Diabetic, Carb Controlled
Activity: As tolerated
Driving Restrictions: As prior to admission
Blood Work: BMP and Mag level in 1 week, result to PCP
Other Services: Cardiac Rehab
Instructions: *CBC Heart Failure Instructions
Stand Alone Forms: DC Instructions- Cath/EP Lab
Referrals:
[facility] [Outside] - 09/15/24 9:00 am
Referral Note: Cardiac Rehab Orientation appointment is on September 15 at 9am.
The Cardiac Rehab gym is located on the first floor of the [facility].
Kristin Amato CRNP [Specified Professional Personl, Cardiology] - 09/02/24 11:20 am
Wyatt Boyd DO [Family Provider, Internal Medicine] - in less than 1 week
Additional Discharge Medication Instructions: Continue baby aspirin and plavix (clopidogrel) for at least 12 months.
Start losartan 25 mg daily (half of home dose).
Lasix increased to 80 mg daily (from 40 mg daily).
Coreg decreased from 12.5 to 6.25 twice daily (to give BP room for other meds)
Holding Farxiga until outpatient BMP
Increased Lantus to 18 units HS (from 16 units HS).
Added Novolog at 5 units AC (with each meal)
Prescriptions:
New
losartan 25 mg Tablet
25 mg PO DAILY Qty: 30 0RF
furosemide 80 mg Tablet
80 mg PO DAILY Qty: 30 0RF
insulin aspart U-100 100 unit/mL (3 mL) Insulin Pen
5 unit SC AC Qty: 15 0RF
clopidogrel 75 mg Tablet
75 mg PO DAILY Qty: 30 0RF
carvedilol [Coreg] 6.25 mg tablet
6.25 mg PO BID Qty: 60 0RF
Continued
metformin 1,000 MG tablet
1,000 mg PO BID@0800,1700
rosuvastatin 40 MG tablet
40 mg PO QPM
cholecalciferol (vitamin D3) [Vitamin D3] 2,000 UNIT capsule
2,000 unit PO BID
cyanocobalamin (vitamin B-12) 1,000 MCG capsule
1,000 mcg PO DAILY
L.acidoph,paracasei,B.animalis 1 EACH capsule
1 ea PO DAILY
ferrous sulfate 325 mg (65 mg iron) Tablet
325 mg PO QPM
ezetimibe 10 mg Tablet
10 mg PO QPM
tadalafil 5 mg Tablet
5 mg PO HS
tadalafil [Cialis] 20 mg Tablet
20 mg PO DAILY PRN (Reason: ED)
multivitamin Tablet
1 tab PO DAILY
omega 4-dqf-exx-fish oil [Fish Oil] 1,000 mg (120 mg-180 mg) Capsule
1 cap PO DAILY
docusate sodium [Colace] 100 mg capsule
100 mg PO BIDPRN PRN (Reason: stool softner)
aspirin 81 mg Tablet
81 mg PO QPM
zinc sulfate 50 mg zinc (220 mg) Tablet
50 mg PO DAILY
Changed
insulin glargine [Lantus Solostar U-100 Insulin] 300 UNITS/3 ML insulin pen
18 unit SC HS Qty: 0 0RF
Held
dapagliflozin propanediol [Farxiga] 10 mg Tablet
10 mg PO DAILY
Hold Instructions: Resume on 08/27/24. until outpatient BMP result
Rx Instructions:
on hold till surgery on 08/16/24
Discontinued
carvedilol 12.5 MG tablet
25 mg PO BID
losartan 50 MG tablet
50 mg PO DAILY
Rx Instructions:
on hold till surgery on 08/16/24
furosemide [Lasix] 20 mg Tablet
40 mg PO DAILY Qty: 60 3RF
Rx Instructions:
on hold till surgery on 08/16/24
Discharge Orders:
Discharge Patient (As Directed); Ordered 08/19/24
Ordered By: Alisson Ahumada
Care Plan Goals
Care Plan Goals:
Problem: Readiness for enhanced knowledge related to diagnosis and treatment plan
Goal: Understand your diagnosis and treatment plan needs, including medications if applicable.
Instructions: Know your diagnosis, underlying causes and treatment plan options, including medications if applicable. Consult with your health care team to learn about your diagnosis and treatment plan, including medications if applicable.
Discharge Date and Time
Discharge Date/Time: 08/19/24 12:59
Print Language: VIETNAMESE
--- NOTE | 2024-08-19 14:30 | PN.CDI ---
CDI
- -
CDI:
Physician Documentation Request
Admit Date: 08/09/24 05:52
Dear Doctor Brandyn,
Clinical Indicators:
Patient admitted with acute on chronic HFrEF.
08/18 Cath Report: 'High risk PCI for ostial ramus/circumflex disease with non-ST elevation myocardial infarction...'
08/19 PN, 'Troponin elevation 2/2 ischemic myocardial injury... PCI x3 over mid ramus lesion, ostial/proximal ramus, ostial/proximal circumflex lesion'
Troponin trend:
08/09/24 08/09/24 08/09/24
07:00 13:20
Troponin I 4.000 H* 3.720 H* 4.020 H*
08/09/24 08/10/24
20:00 03:06
Troponin I 4.230 H* 3.900 H*
Due to potentially conflicting documentation, please clarify the etiology of the troponin elevation:
N STEMI
Ischemic myocardial injury only
Other, please specify
Use of terms such as suspected, likely, concern for, or probable (associated with a specific diagnosis that is being evaluated, monitored, or treated as if it exists) are acceptable and can be coded in the inpatient setting, when documented at the
time of discharge.
Thank you,
LIBERTAD Waggoner RN
CDI Specialist
available via tiger text
Please use your independent medical judgment in providing your response.
[2024-08-19 14:36] LABS: Folate 17.8 ng/ml (2.76-20); Vitamin B12 988 pg/ml (239-931)
--- NOTE | 2024-08-20 10:27 | W.HF.CON ---
Heart Failure
- LV Function
Left ventricular function study result: LV Ejection fraction </= 35%
Ejection Fraction Percentage: 30-35
- ARNI
Patient already on ARNI: No
Heart Failure ARNI Contraindication: Acute Renal Failure, Hypotension
- ACEI/ARB
Patient already on ACEI/ARB: Yes
- Beta Vivek
Patient already on Evidence Based Beta Vivek: Yes
- Mineralocorticord Receptor Antagonist
Patient already on MRA: No
Heart Failure MRA Contraindication: Acute Renal Insufficiency
- SGLT-2 Inhibitor
Patient already on SGLT-2 Inhibitor: Yes
- NYHA CHF Classification
NYHA CHF Classification Level: Class III - Symptoms w/ min exertion, interferes w/ nml daily activity
- ACC/AHA Stage
ACC/AHA Stage: Stage C: Symptomatic Heart Failure
== END 2024-08-19 12:59 | disposition home or self-care (01) | DRG 321 ==
LOC: IVU 05:52
PROVIDERS: Hospitalist; Internal Medicine Cardiovascular Disease; Nurse Practitioner; Student in an Organized Health Care Education/Training Program; ADMITTING PHYSICIAN Hospitalist; ATTENDING PHYSICIAN Internal Medicine; CONSULT PHYSICIAN Internal Medicine; EMERGENCY PHYSICIAN Student in an Organized Health Care Education/Training Program; FAMILY PHYSICIAN Internal Medicine; OTHER PHYSICIAN Internal Medicine Cardiovascular Disease
PROC: 4A023N6 Measurement of Cardiac Sampling and Pressure, Right Heart, Percutaneous Approach (ICD-10-PCS; 2024-08-12)
PROC: 027136Z Dilation of Coronary Artery, Two Arteries with Three Drug-eluting Intraluminal Devices, Percutaneous Approach (ICD-10-PCS; 2024-08-18)
PROC: 4A023N7 Measurement of Cardiac Sampling and Pressure, Left Heart, Percutaneous Approach (ICD-10-PCS; 2024-08-18)
PROC: 02703ZZ Dilation of Coronary Artery, One Artery, Percutaneous Approach (ICD-10-PCS; 2024-08-18)
PROC: B241ZZ3 Ultrasonography of Multiple Coronary Arteries, Intravascular (ICD-10-PCS; 2024-08-18)
PROC: B2111ZZ Fluoroscopy of Multiple Coronary Arteries using Low Osmolar Contrast (ICD-10-PCS; 2024-08-18)
DX: I13.0 Hypertensive heart and chronic kidney disease with heart failure and stage 1 through stage 4 chronic kidney disease, or unspecified chronic kidney disease (principal); I21.4 Non-ST elevation (NSTEMI) myocardial infarction; I50.23 Acute on chronic systolic (congestive) heart failure; N17.9 Acute kidney failure, unspecified; E87.1 Hypo-osmolality and hyponatremia; N18.32 Chronic kidney disease, stage 3b; E11.22 Type 2 diabetes mellitus with diabetic chronic kidney disease; D63.1 Anemia in chronic kidney disease; E78.00 Pure hypercholesterolemia, unspecified; Z68.37 Body mass index [BMI] 37.0-37.9, adult; E66.09 Other obesity due to excess calories; Z85.46 Personal history of malignant neoplasm of prostate; I25.10 Atherosclerotic heart disease of native coronary artery without angina pectoris; E11.65 Type 2 diabetes mellitus with hyperglycemia; Z79.84 Long term (current) use of oral hypoglycemic drugs; G47.33 Obstructive sleep apnea (adult) (pediatric); Z92.3 Personal history of irradiation; Z96.652 Presence of left artificial knee joint; Z82.49 Family history of ischemic heart disease and other diseases of the circulatory system; Z82.3 Family history of stroke; Z79.4 Long term (current) use of insulin; Z79.82 Long term (current) use of aspirin; Z79.899 Other long term (current) drug therapy; Z91.119 Patient's noncompliance with dietary regimen due to unspecified reason; E87.5 Hyperkalemia; K59.00 Constipation, unspecified
CPT/HCPCS: 71046; 80048; 80053; 80061; 82248; 82607; 82728; 82746; 82962; 83036; 83540; 83550; 83735; 83880; 84443; 84466; 84484; 85025; 85027; 85045; 85347; 85730; 92978; 93005; 93451; 93971; 94640; 96374; 97162; 99152; 99153; 99291; C1725; C1753; C1760; C1769; C1874; C1894; C9600; J2916; Q9967

== ENCOUNTER → 2024-08-23 08:34 | Outpatient (REF) | payer MEDICARE, SELFPAY ==
[2024-08-23 09:55] LABS: Blood Urea Nitrogen 70 mg/dl (9-20); Calcium 8.7 mg/dl (8.4-10.2); Carbon Dioxide 20 mmol/L (22-30); Chloride 107 mmol/L (98-107); Glucose 130 mg/dl (70-99); Magnesium 2.6 mg/dl (1.6-2.3); Potassium 5.8 mmol/L (3.5-5.1); Sodium 134 mmol/L (135-145); eGFR 20.81
== END ==
LOC: REG 08:34
PROVIDERS: ATTENDING PHYSICIAN Internal Medicine; FAMILY PHYSICIAN Internal Medicine; OTHER PHYSICIAN Internal Medicine Cardiovascular Disease; OTHER PHYSICIAN Internal Medicine Hematology & Oncology; OTHER PHYSICIAN Specialist; REFERRING PHYSICIAN Internal Medicine Endocrinology, Diabetes & Metabolism
DX: I21.A1 Myocardial infarction type 2 (principal)
CPT/HCPCS: 36415; 80048; 83735

== ENCOUNTER → 2024-08-28 08:49 | Outpatient (REF) | payer MEDICARE, SELFPAY ==
[2024-08-28 09:33] LABS: Hematocrit 26.1 % (39.0-52.0); Hemoglobin 8.8 g/dL (13.0-18.0); Mean Corp Hgb Conc. 33.7 g/dL (33.0-37.0); Mean Corpuscular Volume 96.7 fL (80.0-94.0); Nucleated Red Blood Cells % 0 % (-); Platelet Count 250 10^3/uL (130-400); Red Cell Dist. Width 13.3 % (11.5-14.5)
[2024-08-28 10:05] LABS: ALT (SGPT) 66 U/L (0-50); AST (SGOT) 38 U/L (17-59); Albumin 3.9 g/dl (3.5-5.0); Blood Urea Nitrogen 81 mg/dl (9-20); Calcium 9.9 mg/dl (8.4-10.2); Carbon Dioxide 23 mmol/L (22-30); Chloride 102 mmol/L (98-107); Glucose 112 mg/dl (70-99); Potassium 5.5 mmol/L (3.5-5.1); Sodium 132 mmol/L (135-145); Total Protein 6.1 g/dl (6.3-8.2); eGFR 19.98
[2024-08-28 10:20] LABS: Alkaline Phosphatase 47 U/L (38-126)
[2024-08-28 12:31] LABS: Glycohemoglobin (HgbA1c) 7.1 % (4.0-5.6)
== END ==
LOC: REG 08:49
PROVIDERS: ATTENDING PHYSICIAN Internal Medicine; OTHER PHYSICIAN Internal Medicine Cardiovascular Disease; OTHER PHYSICIAN Specialist; REFERRING PHYSICIAN Internal Medicine Endocrinology, Diabetes & Metabolism
DX: N18.32 Chronic kidney disease, stage 3b (principal); I10 Essential (primary) hypertension; D63.1 Anemia in chronic kidney disease; E11.21 Type 2 diabetes mellitus with diabetic nephropathy
CPT/HCPCS: 36415; 80053; 83036; 83880; 85025

== ENCOUNTER → 2024-09-08 08:39 | Outpatient (REF) | payer MEDICARE, SELFPAY ==
[2024-09-08 10:06] LABS: Blood Urea Nitrogen 60 mg/dl (9-20); Calcium 9.1 mg/dl (8.4-10.2); Carbon Dioxide 26 mmol/L (22-30); Chloride 102 mmol/L (98-107); Glucose 108 mg/dl (70-99); Iron 77 ug/dl (49-181); Magnesium 2.5 mg/dl (1.6-2.3); Potassium 4.9 mmol/L (3.5-5.1); Sodium 131 mmol/L (135-145); eGFR 21.71
[2024-09-08 10:15] LABS: Total Iron Binding Capacity 296 ug/dl (261-462)
== END ==
LOC: REG 08:39
PROVIDERS: ATTENDING PHYSICIAN Internal Medicine; OTHER PHYSICIAN Internal Medicine Cardiovascular Disease; OTHER PHYSICIAN Internal Medicine Endocrinology, Diabetes & Metabolism; OTHER PHYSICIAN Specialist; REFERRING PHYSICIAN Internal Medicine Gastroenterology
DX: R06.09 Other forms of dyspnea (principal); I25.10 Atherosclerotic heart disease of native coronary artery without angina pectoris; E66.01 Morbid (severe) obesity due to excess calories; Z98.890 Other specified postprocedural states; I11.0 Hypertensive heart disease with heart failure; I50.32 Chronic diastolic (congestive) heart failure
CPT/HCPCS: 36415; 80048; 83540; 83550; 83735

== ENCOUNTER → 2024-09-15 09:37 | Outpatient (REF) | payer MEDICARE, SELFPAY ==
[2024-09-15 10:39] LABS: Hematocrit 21.8 % (39.0-52.0); Hemoglobin 7.4 g/dL (13.0-18.0)
[2024-09-15 11:47] LABS: Albumin 3.9 g/dl (3.5-5.0); Blood Urea Nitrogen 61 mg/dl (9-20); Calcium 9.3 mg/dl (8.4-10.2); Carbon Dioxide 25 mmol/L (22-30); Chloride 103 mmol/L (98-107); Glucose 122 mg/dl (70-99); Potassium 4.7 mmol/L (3.5-5.1); Sodium 134 mmol/L (135-145); eGFR 24.87
== END ==
LOC: REG 09:37
PROVIDERS: ATTENDING PHYSICIAN Specialist; FAMILY PHYSICIAN Internal Medicine; OTHER PHYSICIAN Internal Medicine Endocrinology, Diabetes & Metabolism; REFERRING PHYSICIAN Internal Medicine Cardiovascular Disease
DX: I10 Essential (primary) hypertension (principal); I25.10 Atherosclerotic heart disease of native coronary artery without angina pectoris; G47.33 Obstructive sleep apnea (adult) (pediatric); E11.9 Type 2 diabetes mellitus without complications; R06.09 Other forms of dyspnea; E87.1 Hypo-osmolality and hyponatremia; E87.5 Hyperkalemia; N18.30 Chronic kidney disease, stage 3 unspecified
CPT/HCPCS: 36415; 80069; 82570; 83880; 83970; 84156; 85014; 85018

== ENCOUNTER 2024-09-15 18:31 | Observation (INO) | payer MEDICARE, SELFPAY ==
[2024-09-15 13:38] VITALS: BP 131/65
[2024-09-15 13:57] LABS: Hematocrit 22.9 % (39.0-52.0); Hemoglobin 7.7 g/dL (13.0-18.0); Mean Corp Hgb Conc. 33.6 g/dL (33.0-37.0); Mean Corpuscular Volume 96.6 fL (80.0-94.0); Nucleated Red Blood Cells % 0 % (-); Platelet Count 173 10^3/uL (130-400); Red Cell Dist. Width 13.3 % (11.5-14.5)
[2024-09-15 14:10] LABS: INR 0.97; PT 13.4 Sec (11.4-14.6)
[2024-09-15 14:11] LABS: APTT 28.0 Sec (23.4-35.0)
[2024-09-15 14:14] LABS: ALT (SGPT) 39 U/L (0-50); AST (SGOT) 37 U/L (17-59); Albumin 4.2 g/dl (3.5-5.0); Alkaline Phosphatase 40 U/L (38-126); Blood Urea Nitrogen 63 mg/dl (9-20); Calcium 9.3 mg/dl (8.4-10.2); Carbon Dioxide 25 mmol/L (22-30); Chloride 103 mmol/L (98-107); Glucose 171 mg/dl (70-99); Potassium 4.9 mmol/L (3.5-5.1); Sodium 134 mmol/L (135-145); Total Protein 6.6 g/dl (6.3-8.2); eGFR 26.12
--- NOTE | 2024-09-15 16:11 | ED.GENMED ---
History of Present Illness
General
Chief Complaint: Abnormal Lab Value
Source: patient and spouse
Exam Limitations: none
Time Seen by Provider: 09/15/24 16:04
Nursing documentation reviewed up to this point in time: agreed with
History of Present Illness
History of Present Illness:
84 yo male w h/o Non-STEMI, ASCVD, Acute on chronic HFrEF, Echo 07/26/2024 with EF 30 to 35%, mod , Acute kidney injury on CKD stage IIIb baseline cr 2, 48 oz FR, follows Dr Anne, Hyperkalemia, anemia fr CKD and iron deficiency, Cardiac cath
08/18/24, 3 stents,HTN, Poorly controlled diabetes, HLD, carotid endarterectomy,Sleep apnea/CPAP, Obesity,hypervolemic hyponatremia presents sent here by a call from Nephrology office for Hgb 7.4 from earlier today.
He indicated that his hemoglobin has been historically lower than normal and he has received iron infusions in the past. The last recorded hemoglobin level was 8.8 g/dL 08/28 while in the hospital.
The patient reports symptoms of shortness of breath, which occurs upon mild exertion such as walking or climbing stairs. This symptom was severe enough in July to require hospitalization but had improved until recently, with worsening noted over the
past few days. The patient describes his current shortness of breath as not as severe as in July but more pronounced in recent days than prior weeks.
Additionally, the patient denies any significant chest pain, changes in stool color, abdominal pain, nausea, vomiting, or diarrhea. The patients appetite is somewhat normal, and he is attempting to adhere to a recommended diet plan. He is on a
fluid restriction of 48 ounces per day. The patients current functional status allows more mobility compared to July when he couldn�t walk more than 10 or 12 feet without significant SOB
During the exam, rectal examination revealed no obvious signs of stool abnormality in color to suggest active gastrointestinal bleeding.
Past History
Past History
ED Past Medical History: CAD, Cancer (Prostate treated with radium seed implant), HTN, Hypercholesterolemia, IDDM, AR and Other (ASCVD)
ED Past Surgical History: Cardiac (Recent PCI with 3 stents), Tonsilectomy and Other (Left carotid endarterectomy, hernia repair, colonoscopy November 2018)
Social History
Tobacco: Non-smoker
Alcohol: Occasional (rare)
Drug: None
Personal:
Living: with family
Employment: Retired
Family History
Family History: Diabetes, CAD and Cancer
Review of Systems
Review of Systems
Allergies reviewed?: Yes
All Other Systems: ROS reviewed and negative except as documented in HPI and ROS
Constitutional: Reports fatigue; Denies fever
Respiratory: Reports trouble breathing (DUGGAN worsening past 3 days)
Cardiac: Denies chest pain or palpitations
ABD/GI: Denies abdominal pain, nausea, vomiting, diarrhea, bloody stools, black stools or anorexia
: Denies dysuria, frequency or difficulty voiding
Musculoskeletal: Reports no symptoms
Skin: Reports no symptoms
Neurological: Reports no symptoms
Phy Exam
Physical Exam
Physical Exam:
GENERAL: No acute distress. A&Ox3.
CONSTITUTIONAL: Afebrile.
EYES: clear, conjunctivae normal
ENMT: moist mucus membranes, Pharynx nl
RESPIRATORY: Regular respirations, nonlabored, lungs clear.
CARDIOVASCULAR: Regular rate and rhythm, no murmurs, no rubs.
GI: Soft, nontender, normal BS
Rectal: Brown stool, hematest positive
MUSCULOSKELETAL: Moves with ease. Well perfused.
SKIN: Warm, dry, pale
PSYCH: Normal mood and affect. Well kept, interactive and appropriate
NEUROLOGIC: Awake, alert and oriented. No focal neurological deficits
Course
Orders/Labs/Results
Orders:
Orders
09/15/24 13:35
EKG [Electrocardiogram (*1)] Urgent
Reason for Study: Fatigue / Weakness
EKG- Treatment ONCE
09/15/24 13:49
Atypical Antibody Screen Urgent
BBK Wristband Number:
Comment: ANDRE
Type+Screen Urgent
Complete Blood Count/With Diff Urgent
Comprehensive Metabolic Panel Urgent
Ferritin Urgent
Comment: ADD ON
PTT Urgent
Prothrombin Time Urgent
09/15/24 Dinner
1800 calorie (15 carb) Diabetic
At Your Request: Limited Participation
Does patient need a safe tray?: No
09/15/24 18:05
Admit/Transfer Patient As Directed
Co-Sign Provider:
Level of Care: Observation services
Assign to:: Telemetry
Physician / Group: Leona Blackwell
Diagnosis: symptomatic anemia
Reason for Telemetry: Arrhythmia
Date to Stop Telemetry: 09/18/24
Time to Stop Telemetry: 11:00
PRN Pain Medication Management As Directed
May give lesser potent ordered pain med per pt: Yes
preference::
Protocol:: Medication orders for pain may be administered in a
manner that supports deferring to patient preference
when the pt is:
- Requesting an ordered lesser potent pain medication.
Least to most potent pain medications are defined
as: acetaminophen < NSAID < tramadol < opioids
(morphine, oxycodone, hydromorphone).
- Requesting a lesser dose of the same medication IF
ORDERED.
- Requesting a less intrusive route of administration
if both routes are prescribed by the provider (PO <
IV).
09/15/24 18:07
Code Status As Directed
Resuscitation Status: Full Code
09/15/24 18:09
Blood Bank Products [* Blood Bank Products] Urgent
Blood Bank Products: *Packed RBC Leuko(PRBC's)
Quantity: 1
Transfuse Today: Yes
Reason: Anemia
09/15/24 18:15
Furosemide [Lasix] 40 mg IV NOW STA
09/15/24 19:49
Acetaminophen [Tylenol] 650 mg PO Q4HPRN PRN
Docusate Sodium [Colace] 100 mg PO HSPRN PRN constipation
09/15/24 19:49
Activity As Directed
Activity Level: As Tolerated
INT (Intravenous Needle Therapy) As Directed
Comment: Place 2 IV catheters of the largest bore possible until stable
Intake/ Output As Directed
Frequency: Per unit guidelines
Orthostatic Vital Signs As Directed
Orthostatic VS Frequency: Now
Comment: then every four hours for twenty-four hours
Pneumatic Compression Sleeves As Directed
Type: Knee high
Vital Signs As Directed
Frequency: Per unit guidelines
Weight As Directed
Frequency: Daily
Type of Scale: Standing Scale
Comment: Daily morning weight. If unable to stand, use balanced bed scale.
Weight As Directed
Frequency: Once
Type of Scale: Standing Scale
Comment: Upon Admission. If unable to stand, use balanced bed scale.
Pulse Ox/cont/shift [RESP] Routine
Quantity: 1
Special Instructions: Daily pulse oximetry at rest. If greater than 92% at rest also obtain pulse oximetry
while ambulating as tolerated.
DX Deep Vein Thrombosis Video Routine
09/15/24 21:00
Carvedilol [Coreg] 6.25 mg PO BID
09/16/24 06:00
Basic Metabolic Panel IN AM
Complete Blood Count/No Diff IN AM
09/16/24 08:00
Aspirin Low Dose EC [Aspir Low (Enteric Coated)] 81 mg PO DAILY
Cholecalciferol (Vitamin D3) [VITAMIN D3 (cholecalciferol)] 50 mcg PO DAILY
Clopidogrel Bisulfate [Plavix] 75 mg PO DAILY
Cyanocobalamin [Vitamin B-12] 1,000 mcg PO DAILY
Dapagliflozin [Farxiga] 10 mg PO DAILY
Ezetimibe [Zetia] 10 mg PO DAILY
Furosemide [Lasix] 20 mg PO DAILY
Lactobac/Bifidobac [Visbiome] 1 cap PO DAILY
Multivitamin [Theragran] 1 tablet PO DAILY
Vitamin E 400 units PO DAILY
Zinc 50mg (Zinc Sulfate 220mg) [Zinc] 50 mg PO DAILY
omega 6-nzx-cuy-fish oil [Fish Oil] 1 cap PO DAILY
09/16/24 18:00
Ferrous Sulfate [Feosol] 325 mg PO QPM
Rosuvastatin Calcium [Crestor] 40 mg PO QPM
tadalafil See Dose Instructions PO QPM
09/18/24 11:00
DC Protocol for Telemetry ONCE
Abnormal Lab Results
09/15/24
13:49
RBC 2.37 L 10^6/uL
(4.70-6.10)
Hgb 7.7 L g/dL
(13.0-18.0)
Hct 22.9 L %
(39.0-52.0)
MCV 96.6 H fL
(80.0-94.0)
MCH 32.5 H pg
(27.0-31.0)
Sodium 134 L mmol/L
(135-145)
BUN 63 H mg/dl
(9-20)
Creatinine 2.4 H mg/dL
(0.7-1.3)
Glucose 171 H mg/dl
(70-99)
Crossmatch IS Only See Detail
Crossmatch (AHG) See Detail
09/15/24 13:49
09/15/24 13:49
Vital Signs
Initial and Last Documented VS:
Initial Vital Signs
Temp Pulse Resp BP Pulse Ox
97.4 F 72 20 131/65 100
09/15/24 13:38 09/15/24 13:38 09/15/24 13:38 09/15/24 13:38 09/15/24 13:38
Last Documented Vital Signs
Temp Pulse Resp BP Pulse Ox
98.5 F 67 20 106/48 98
09/15/24 22:12 09/15/24 22:12 09/15/24 22:12 09/15/24 22:12 09/15/24 19:57
MDM/Problems Addressed
Differential Diagnosis Includes:
- Gastrointestinal bleeding
- Chronic kidney disease-related anemia
- Iron deficiency anemia
- Blood loss anemia (undiagnosed source beyond gastrointestinal)
- Medication-induced anemia
MDM/Problems Addressed:
84 yo male w h/o Non-STEMI, ASCVD, Acute on chronic HFrEF, Echo 07/26/2024 with EF 30 to 35%, mod , Acute kidney injury on CKD stage IIIb baseline cr 2, 48 oz FR, follows Dr Anne, Hyperkalemia, anemia fr CKD and iron deficiency, Cardiac cath
08/18/24, 3 stents,HTN, Poorly controlled diabetes, HLD, carotid endarterectomy,Sleep apnea/CPAP, Obesity,hypervolemic hyponatremia presents sent here by a call from Nephrology office for Hgb 7.4 from earlier today.
He indicated that his hemoglobin has been historically lower than normal and he has received iron infusions in the past. The last recorded hemoglobin level was 8.8 g/dL 08/28 while in the hospital.
The patient reports symptoms of shortness of breath, which occurs upon mild exertion such as walking or climbing stairs. This symptom was severe enough in July to require hospitalization but had improved until recently, with worsening noted over the
past few days. The patient describes his current shortness of breath as not as severe as in July but more pronounced in recent days than prior weeks.
Additionally, the patient denies any significant chest pain, changes in stool color, abdominal pain, nausea, vomiting, or diarrhea. The patients appetite is somewhat normal, and he is attempting to adhere to a recommended diet plan. He is on a
fluid restriction of 48 ounces per day. The patients current functional status allows more mobility compared to July when he couldn�t walk more than 10 or 12 feet without significant SOB
Pt on ASA 81 mg and Clopidogrel, denies NSAID use
EKG: Sinus rhythm first-degree block, RBBB
CBC: Hgb 7.7 with relatively normal indices
CMP: BUN/creat consistent with his baseline/ chronic CKD
Problem list:
- Acute: Evaluate for potential sources of gastrointestinal bleeding, as indicated by low hemoglobin levels and anemia.
- Chronic: Anemia, chronic kidney disease, and iron deficiency.
4:30 PM:
Rectal exam: Brown stool, hematest positive.
Plan:- Admit to the hospital for a gastrointestinal workup to determine potential sources of bleeding.
- Monitor the hemoglobin levels and symptoms closely.
- Prepare for gastrointestinal consultation and possible endoscopic evaluation to identify bleeding sources.
Hospitalist notified of admission
Blood consent signed and scanned into chart
GI consult in
Chronic conditions affecting care: HTN, CAD, Kidney disease and Other (Iron deficiency anemia)
*Pulse Oximetry
SaO2: 100
Oxygen Mode of Delivery: Room air
Patient hypoxic: no
*EKG
EKG Intrepretation Date: 09/15/24
Interpretation: abnormal
Heart Rate: 73
Rate: normal
Rhythm: sinus
[place]: normal axis
Interval: first degree heart block
QRS Pattern: right bundle branch block
Ischemia: no ischemia
*Critical Care Note
Total Time (30-74mins, 75-104mins- exclusive of procedures): Not Applicable
Patient Management
Social determinants of health affecting care: Strong social support
ED Attending Note
-
Portions of this chart may have been created with voice recognition software.� Occasional wrong word or��sound alike� substitutions may have occurred due to the inherent limitations of voice recognition software.
Discharge Plan
Departure
Patient Disposition: Admit
Date of Disposition: 09/15/24
Time of Disposition: 17:02
Admit to: Med/Surg
Presentation/result/management discussed w/ accepting MD/DO: Hospitalist
Condition: Fair
Discharge Problem:
GI (gastrointestinal bleed), Anemia
Interventions
Interventions:
*Risk Screen - Suicide Last Done: 09/15/24 13:38
*General Assessment Last Done: 09/15/24 13:38
*Neglect/Abuse Screening Last Done: 09/15/24 16:47
*ED COVID-19 Vaccine History Last Done: 09/15/24 21:58
*Nursing Disposition Last Done: 09/15/24 19:45
Discharge Date and Time
Discharge Date/Time: 09/15/24 19:45
[2024-09-15 17:00] VITALS: BP 118/62
--- NOTE | 2024-09-15 17:06 | HPS.HSE ---
Family Physician
-
Family Physician: Wyatt Boyd
Chief Complaint
-
abnormal labs
History of Present Illness
Patient is a 84-year-old male with past medical history significant for ASCVD, HFrEF, hypertension, DM-II, CKD III and chronic anemia who presented to [facility] ED for evaluation of abnormal out patient labs. Patient reports having routine labs completed
this morning before scheduled appointment with Dr. Anne tomorrow. Dr. Anne telephoned patient when labs resulted requesting he present to ED for evaluation of low hemoglobin. Patient reports recent exertional dyspnea with mild exertion,
tachycardia and some dizziness with positional changes. Denies chest pains, abdominal pain, nausea, vomiting, consitpation, diarrhea, dark or bloody stools or urinary changes.
Medical History
Past Medical History
Past Medical History: Reports Other
Additional Past Medical History:
ASCVD (CAD, Carotid Stenosis)
HFrEF
Hypertension
DM-II
CKD III
ROHINI on CPAP
Chronic Anemia
Prostate Cancer s/p Radiation Seeds
Obesity
Past Surgical History: Reports Other
Additional Past Surgical History:
T&A
Hernia Repair
Left CEA
Cataracts
Appendectomy
Left Arm ORIF
Left TKA
Social History
Tobacco: Non-smoker
Alcohol: None
Drug: None
Personal:
Living: With Family
Family History
Family History: Other (Father: Premature CAD (first MT at 47yo) Mother: CVA, dementia)
Allergies / Home Medications
Allergies reflects when Allergies were last updated in [employer].
Home Medications with original date entered in [employer]
Allergy/Medication List:
Allergies
Allergy/AdvReac Type Severity Reaction Status Date / Time
poison go extract Allergy Unknown Verified 09/15/24 13:41
pollen extracts Allergy Itching Verified 09/15/24 13:41
Home Medications
metformin 1,000 mg tablet 1,000 mg PO BID Diabetes 07/23/17
rosuvastatin 40 mg tablet 40 mg PO QPM High Cholesterol 07/23/17
ezetimibe 10 mg tablet 10 mg PO DAILY High Cholesterol 02/14/23
ferrous sulfate 325 mg (65 mg iron) tablet 325 mg PO QPM Supplement 02/14/23
tadalafil 20 mg tablet (Cialis) 20 mg PO DAILYPRN PRN ED 02/14/23
tadalafil 5 mg tablet 5 mg PO QPM Urinary Issue 02/14/23
docusate sodium 100 mg capsule (Colace) 100 mg PO HSPRN PRN constipation 03/12/23
multivitamin 1 tab PO DAILY Supplement 03/12/23
omega 8-vxj-dgj-fish oil 1,000 mg (120 mg-180 mg) capsule (Fish Oil) 1 cap PO DAILY Supplement 03/12/23
zinc sulfate 50 mg zinc (220 mg) tablet 50 mg PO DAILY 08/09/24
clopidogrel 75 mg tablet 75 mg PO DAILY #30 tabs 08/19/24
losartan 25 mg tablet 25 mg PO DAILY #30 tabs 08/19/24
Lactobac no.2-Bifidobac no.1-S. thermo 112.5 billion cell capsule (Visbiome) 1 cap PO DAILY 09/15/24
acetaminophen 500 mg tablet (Tylenol Extra Strength) 500 mg PO TIDPRN PRN mild pain 09/15/24
aspirin 81 mg tablet,delayed release 81 mg PO DAILY 09/15/24
carvedilol 12.5 mg tablet 6.25 mg PO BID 09/15/24
cholecalciferol (vitamin D3) 50 mcg (2,000 unit) capsule 50 mcg PO DAILY 09/15/24
cyanocobalamin (vitamin B-12) 1,000 mcg tablet 1,000 mcg PO DAILY 09/15/24
dapagliflozin propanediol 10 mg tablet (Farxiga) 10 mg PO DAILY 09/15/24
fluticasone propionate 50 mcg/actuation nasal spray,suspension 1 spray intranasal HSPRN PRN congestion 09/15/24
furosemide 20 mg tablet 20 mg PO DAILY 09/15/24
insulin glargine 100 unit/mL (3 mL) subcutaneous pen (Lantus Solostar U-100 Insulin) 18 unit SC HS 09/15/24
vitamin E (dl, acetate) 180 mg (400 unit) capsule 180 mg PO DAILY 09/15/24
Review of Systems
-
History Source: Patient
Constitutional: Reports No Symptoms
EENT: Reports No Symptoms
Respiratory: Reports Other (exertional dyspnea )
Cardiac: Reports Other (tachycardia and intermittent dizziness with position changes )
Abdomen/GI: Denies Abdominal Pain, Nausea, Vomiting, Diarrhea, Bloody Stools or Black Stools
: Reports No Symptoms
Musculoskeletal: Reports No Symptoms
Skin: Reports No Symptoms
Neurological: Reports No Symptoms
Endocrine: Reports No Symptoms
Hematologic/Lymphatic: Reports No Symptoms
Psych: Reports No Symptoms
Physical Exam
Vital Signs
Vital Signs
Temp Pulse Resp BP Pulse Ox
97.4 F 72 20 131/65 100
09/15/24 13:38 09/15/24 13:38 09/15/24 13:38 09/15/24 13:38 09/15/24 16:18
Physical Exam
General: Well Developed, Well Nourished, No Apparent Distress, Comfortable, Conversant and Morbidly Obese
HEENT: NormoCephalic, Moist mucous membranes and Atraumatic
Respiratory: Clear and Non Labored Respirations
Cardiac: S1/S2, Regular Rhythm and Murmur; No Rub
GI: Soft, Non Tender, Non Distended and Normal Bowel Sounds
Rectal: Hem Positive (as per ED ) and Deferred by Provider
Musculoskeletal: No Clubbing, No Cyanosis and No Edema
Skin: Warm and IV/Catheter Site
Neuro: Awake, AO x 3 and Nonfocal/grossly intact
Psych: Calm and Intact Judgment/Insight
Laboratory Results
-
09/15/24 13:49
09/15/24 13:49
Laboratory Results
PT 13.4 Sec (11.4-14.6) 09/15/24 13:49
INR 0.97 09/15/24 13:49
APTT 28.0 Sec (23.4-35.0) 09/15/24 13:49
Total Bilirubin 0.7 mg/dl (0.2-1.3) 09/15/24 13:49
AST 37 U/L (17-59) 09/15/24 13:49
ALT 39 U/L (0-50) 09/15/24 13:49
Alkaline Phosphatase 40 U/L (38-126) 09/15/24 13:49
Data Reviewed
-
Medical Tests (Nuc Med, Echo, EKG etc): Report Reviewed by me (EKG: SINUS RHYTHM WITH 1ST DEGREE A-V BLOCK RIGHT BUNDLE BRANCH BLOCK LEFT ANTERIOR FASCICULAR BLOCK BIFASCICULAR BLOCK POSSIBLE LATERAL INFARCT (CITED ON OR BEFORE 18-JUL-2017)
Poor R-wave progression ; consider septal infarct, lead placement, or normal variant)
Lab Data: Labs Reviewed by me (hgb 7.7, hct 22.9, Na+ 134, BUN 63, Creat 2.4, eGFR 26.12)
Impression/Plan
-
IMPRESSION/PLAN:
#anemia 2/2 chronic anemia vs. GI bleed
#Chronic Anemia (iron deficiency)
hgb 7.7, hct 22.9
stools: heme positive in ED
EKG: SINUS RHYTHM WITH 1ST DEGREE A-V BLOCK
RIGHT BUNDLE BRANCH BLOCK
LEFT ANTERIOR FASCICULAR BLOCK
BIFASCICULAR BLOCK
POSSIBLE LATERAL INFARCT (CITED ON OR BEFORE 18-JUL-2017)
Poor R-wave progression ; consider septal infarct, lead placement, or normal variant
- Admit to telemetry
- Blood consent obtained and scanned into chart by ED
- transfuse 1 unit PRBCs
- trend H/H
- continue ferrous sulfate
#ASCVD (CAD, Carotid Stenosis)
- continue aspirin, clopidogrel, ezetimibe and rosuvastatin
#HFrEF
- daily weights
- I & Os
- continue carvedilol, dapagliflozin and furosemide
#Hypertension
- continue carvedilol
#DM-II
glucose 171
- AccuCheck AC & HS
- SSI
- continue dapagliflozin
- continue Lantus
- Hold metformin,
#CKD III
Na+ 134, BUN 63, Creat 2.4, eGFR 26.12
- continue to follow up out patient nephrology
#ROHINI on CPAP
#Prostate Cancer s/p Radiation Seeds
#Obesity
Code status: full code
DVT prophylaxis: SCDs
--- NOTE | 2024-09-15 17:43 | W.PN.UPDATE ---
Addendum entered and electronically signed by Leona Blackwell MD 09/15/24 18:19:
CKD III
-creatinine at baseline, monitor with diuresis
Original Note:
Update Note
Progress Note Update
This is an addendum to H&P written by MACHINE ROPE MAKER Laurel Egan
I saw and examined the patient.
The MACHINE ROPE MAKER's note was reviewed and I agree with the note.
Comment:
Mr. Chris Mcmullen is a 84 yo man with hx CAD s/p cardiac cath 08/18/24 with PCI x 3, HTN, CKD II, DM II, HLD, hx CEA, ROHINI, anemia of chronic disease sent to the ER from Nephrology clinic for outpatient Hg noted to be 7.4. Patient reporting shortness
of breath with exertion.
Triage VS: T 97.4, P 72, RR 20, BP 131/65, SpO2 100%
On exam patient is awake, alert, in no distress. Chest clear. + JVP and b/l LE pitting edema.
LABS: WBC 6.7, Hg 7.7, PLT 173, Na 134, K+ 4.9, Cl 103, O2 25, Cr 2.4 (baseline), Glucose 171
Acute on Chronic Anemia
Anemia of chronic disease
Shortness of Breath
Symptomatic Anemia
-per ER report, Heme + stool but also brown, no e/o active GI bleed. Iron studies from 09/08 without e/o SLIME, adding on ferritin
-admit to telemetry
-transfuse 1 unit
-repeat CBC in AM
HFrEF, acute exacerbation
-TTE 07/26/24 with EF 30-35%, moderate , mild MR
-[employer]ER [employer] S[employer] IMPAIRED Coreg, Losartan
-patient with swelling in legs, fluid overload may be contributing to symptoms
-Lasix 40mg IV x 1 with transfusion, team to monitor response and consider further IV diuresis tomorrow based on symptoms and exam.
CAD s/p recent PCI 08/18/24
-with no e/o active bleeding, will continue TEACHER OF [employer] S[employer] IMPAIRED Asa/Plavix given recent stent
-TE[employer] OF [employer] IMPAIRED Coreg
Essential HTN
-TE[employer]ER OF [employer] S[employer] IMPAIRED Coreg, Losartan
HLD
DM II
-on Metformin at home
DVT PPx SCD
FULL CODE
Remainder of plan per MACHINE ROPE MAKER note
--- NOTE | 2024-09-15 17:45 | PHANOTE ---
09/15/2024, per pt., their Losartan is on hold.
[2024-09-15 18:00] VITALS: BP 117/53
[2024-09-15] MEDS: LASIX 40 MG IV (18:26)
[2024-09-15 19:08] LABS: Ferritin 328.0 ng/ml (17.9-464.0)
[2024-09-15 19:57] VITALS: BP 126/59; BMI 35.8
[2024-09-15 21:05] LABS: Glucose - Point of Care 120 mg/dl (70-99)
[2024-09-15] MEDS: LANTUS 0.18 UNITS SC (21:18)
[2024-09-15] MEDS: COREG 6.25 MG PO (21:18)
[2024-09-15 21:52] VITALS: BP 121/56
[2024-09-15 22:07] VITALS: BMI 35.8
[2024-09-15 22:12] VITALS: BP 106/48
[2024-09-16] VITALS (11 sets, daily range): BP systolic 106–139; BP diastolic 49–65; PULSE 57–77; BMI 35.2
[2024-09-16 05:02] LABS: Hematocrit 22.8 % (39.0-52.0); Hemoglobin 7.8 g/dL (13.0-18.0); Mean Corp Hgb Conc. 34.2 g/dL (33.0-37.0); Mean Corpuscular Volume 92.3 fL (80.0-94.0); Platelet Count 178 10^3/uL (130-400); Red Cell Dist. Width 16.5 % (11.5-14.5)
[2024-09-16 05:12] LABS: Blood Urea Nitrogen 56 mg/dl (9-20); Calcium 8.9 mg/dl (8.4-10.2); Carbon Dioxide 26 mmol/L (22-30); Chloride 105 mmol/L (98-107); Estimated Creatinine Clearance 30 ml/min; Glucose 87 mg/dl (70-99); Potassium 4.0 mmol/L (3.5-5.1); Sodium 136 mmol/L (135-145); eGFR 27.49
--- NOTE | 2024-09-16 05:27 | W.PN.UPDATE ---
Update Note
Progress Note Update
repeat HGB was 7.8 up from 7.7 after one unit of blood- no overt s/s of bleeding noted- 2nd unit of PRBCs ordered.
[2024-09-16 07:00] LABS: Glucose - Point of Care 100 mg/dl (70-99)
[2024-09-16] MEDS: NOVOLOG FLEXPEN-LOW RESISTANCE SC (08:09)
[2024-09-16] MEDS: ZINC 50 MG PO (08:11)
[2024-09-16] MEDS: ZETIA 10 MG PO (08:11)
[2024-09-16] MEDS: FARXIGA 10 MG PO (08:11)
[2024-09-16] MEDS: VITAMIN E 400 UNITS PO (08:12)
[2024-09-16] MEDS: VITAMIN D3 (cholecalciferol) 50 MCG PO (08:12)
[2024-09-16] MEDS: VISBIOME 1 CAP PO (08:12)
[2024-09-16] MEDS: THERAGRAN 1 TABLET PO (08:12)
[2024-09-16] MEDS: COREG 6.25 MG PO ×2 (08:13→22:12)
[2024-09-16] MEDS: VITAMIN B-12 1000 MCG PO (08:13)
[2024-09-16] MEDS: LASIX 20 MG PO (08:14)
[2024-09-16] MEDS: ASPIR LOW (ENTERIC COATED) 81 MG PO (08:14)
--- NOTE | 2024-09-16 11:41 | W.PN.HOSP.TC ---
Today's Communication/Plan
-
see A/P
Assessment / Plan
Assessment / Plan
HPI: 84 yo man with hx CAD s/p cardiac cath 08/18/24 with PCI x 3, HTN, CKD II, DM II, HLD, hx CEA, ROHINI, anemia of chronic disease; who was sent to the ER from Nephrology clinic for outpatient Hg noted to be 7.4. Patient reporting shortness of
breath with exertion.
A/P:
# Acute on Chronic Anemia
# Anemia of Chronic disease
# Symptomatic anemia with shortness of breath
per ER report, Heme + stool but also brown, no e/o active GI bleed.
Iron studies from 09/08 without e/o SLIME, ferritin WNL
s/p 2 units PRBC transfusion, cont to monitor Hgb
Noted EGD and C scope from Feb 2024 were unrevealing
# Possible mild acute HFrEF exacerbation
TTE 07/26/24 with EF 30-35%, moderate , mild MR
Cont OFFENDER EMPLOYMENT SPECIALIST Coreg
patient with swelling in legs POA, fluid overload may be contributing to symptoms, s/p Lasix 40mg IV x 1 with transfusion,
cont OFFENDER EMPLOYMENT SPECIALIST Lasix 20 mg daily
# CKD stage 4
SCr 2.5 on admission, today at 2.3, this is likely new baseline
# CAD s/p recent PCI x3 (mid ramus lesion, ostial/proximal ramus, ostial/proximal circumflex lesion) 08/18/24
with no e/o active bleeding, continue OFFENDER EMPLOYMENT SPECIALIST Asa/Plavix given recent stent
OFFENDER EMPLOYMENT SPECIALIST Coreg
# Essential HTN
OFFENDER EMPLOYMENT SPECIALIST Coreg,
Per pt, previous Losartan was stopped
# HLD
OFFENDER EMPLOYMENT SPECIALIST Crestor and Zetia
# IDDM
Would NOT cont OFFENDER EMPLOYMENT SPECIALIST metformin with current CKD status
cont OFFENDER EMPLOYMENT SPECIALIST Lantus 18 units HS
ISS coverage
DVT PPx SCD
FULL CODE
DW RN
DW at bedside
total time spent 51 min
Anticipated Discharge: 24 - 48 hours
Subjective/Interval History
-
Date of Service: September 16, 2024
Objective Data
-
Labs:
Laboratory Results
09/16/24
04:33
WBC 6.6
Hgb 7.8 L
Hct 22.8 L
Plt Count 178
Sodium 136
Potassium 4.0
Chloride 105
Carbon Dioxide 26
BUN 56 H
Creatinine 2.3 H
Glucose 87
Calcium 8.9
Vital Signs:
Vital Signs
Temp Pulse Resp BP Pulse Ox
36.8 C 62 18 125/63 97
09/16/24 09:11 09/16/24 09:11 09/16/24 09:11 09/16/24 09:11 09/16/24 09:11
I&O
09/15/24 09/16/24 09/17/24
06:59 06:59 06:59
Intake Total 980 / 980 250 / 250
Balance 980 / 980 250 / 250
Review of Systems
-
History Source: Patient
All other systems: Reviewed and negative
Physical Exam
-
General: Well Developed, Well Nourished, No Apparent Distress, Comfortable, Conversant (speak in full sentences) and Obese; Negative Respiratory Distress
HEENT: Normocephalic, Atraumatic, Nose Appears Normal and Ears Appear Normal; Negative Oxygen
Respiratory: Clear to Auscultation and Non Labored Respirations; Negative Accessory Resp Muscle Use
Cardiac: Regular Rhythm, S1/S2 and Murmur
GI: Soft, Nontender, Nondistended and Normal Bowel Sounds
Skin: Warm and Dry
Neuro: Awake, Alert, Oriented and AO x 3
Psych: Calm and Intact Judgement/Insight
Data Reviewed
-
Labs: Labs Reviewed by me
[2024-09-16 11:46] LABS: Glucose - Point of Care 150 mg/dl (70-99)
[2024-09-16] MEDS: NOVOLOG FLEXPEN-LOW RESISTANCE 1 UNITS SC ×2 (12:10→16:49)
--- NOTE | 2024-09-16 13:05 | CM ---
Patient seen bedside.
IA completed.
[place] explained and signed.
Patient lives with spouse in 2 story home with 3 steps to enter.
Bed and bath 1st floor.
Patient has a cane, walking stick if needed, also has RW and CPAP.
Patient drives, Independent prior to admission.
Patient has not had VN or been in a skilled rehab.
Denies home are needs at this time.
PCP: Dr Smith
Pharmacy: [facility]
Plan: home no needs anticipated.
[2024-09-16] MEDS: PLAVIX 75 MG PO (13:24)
[2024-09-16] MEDS: PROTONIX IV 40 MG IV (13:25)
[2024-09-16] MEDS: NSS (PRESERVATIVE FREE) 10 ML IV (13:25)
[2024-09-16 16:18] LABS: Glucose - Point of Care 188 mg/dl (70-99)
[2024-09-16] MEDS: FEOSOL 325 MG PO (17:26)
[2024-09-16] MEDS: CRESTOR 40 MG PO (17:26)
[2024-09-16 21:33] LABS: Glucose - Point of Care 193 mg/dl (70-99)
[2024-09-16] MEDS: LANTUS 0.18 UNITS SC (22:12)
[2024-09-17 03:00] VITALS: BP 106/47; BP 109/49; BP 113/50; PULSE 57; PULSE 59; PULSE 64
[2024-09-17 06:00] VITALS: BMI 34.9
[2024-09-17 07:26] VITALS: BP 131/62
[2024-09-17 08:14] LABS: Hematocrit 28.2 % (39.0-52.0); Hemoglobin 9.5 g/dL (13.0-18.0); Mean Corp Hgb Conc. 33.7 g/dL (33.0-37.0); Mean Corpuscular Volume 90.7 fL (80.0-94.0); Platelet Count 183 10^3/uL (130-400); Red Cell Dist. Width 16.4 % (11.5-14.5)
[2024-09-17 08:22] LABS: Glucose - Point of Care 119 mg/dl (70-99)
[2024-09-17 08:37] LABS: Blood Urea Nitrogen 50 mg/dl (9-20); Calcium 9.3 mg/dl (8.4-10.2); Carbon Dioxide 20 mmol/L (22-30); Chloride 107 mmol/L (98-107); Estimated Creatinine Clearance 36 ml/min; Glucose 100 mg/dl (70-99); Magnesium 2.4 mg/dl (1.6-2.3); Potassium 4.2 mmol/L (3.5-5.1); Sodium 136 mmol/L (135-145); eGFR 34.57
[2024-09-17] MEDS: FARXIGA 10 MG PO (08:46)
[2024-09-17] MEDS: NOVOLOG FLEXPEN-LOW RESISTANCE SC (08:46)
[2024-09-17] MEDS: PROTONIX IV 40 MG IV (08:47)
[2024-09-17] MEDS: NSS (PRESERVATIVE FREE) 10 ML IV (08:47)
[2024-09-17] MEDS: ZINC 50 MG PO (08:47)
[2024-09-17] MEDS: COREG 6.25 MG PO (08:47)
[2024-09-17] MEDS: ZETIA 10 MG PO (08:47)
[2024-09-17] MEDS: VITAMIN D3 (cholecalciferol) 50 MCG PO (08:47)
[2024-09-17] MEDS: VISBIOME 1 CAP PO (08:47)
[2024-09-17] MEDS: VITAMIN E 400 UNITS PO (08:47)
[2024-09-17] MEDS: VITAMIN B-12 1000 MCG PO (08:47)
[2024-09-17] MEDS: LASIX 20 MG PO (08:47)
[2024-09-17] MEDS: THERAGRAN 1 TABLET PO (08:47)
[2024-09-17] MEDS: ASPIR LOW (ENTERIC COATED) 81 MG PO (08:47)
[2024-09-17] MEDS: PLAVIX 75 MG PO (08:47)
--- NOTE | 2024-09-17 10:24 | W.PN.HOSP.TC ---
Addendum entered and electronically signed by Alisson Ahumada MD 09/17/24 15:03:
total DC time 40 min
Original Note:
Today's Communication/Plan
-
see A/P
Assessment / Plan
Assessment / Plan
HPI: 84 yo man with hx CAD s/p cardiac cath 08/18/24 with PCI x 3, HTN, CKD II, DM II, HLD, hx CEA, ROHINI, anemia of chronic disease; who was sent to the ER from Nephrology clinic for outpatient Hg noted to be 7.4. Patient reporting shortness of
breath with exertion.
A/P:
# Acute on Chronic Anemia
# Anemia of Chronic disease
# Symptomatic anemia with shortness of breath
per ER report, Heme + stool but also brown, no e/o active GI bleed.
Iron studies from 09/08 without e/o SLIME, ferritin WNL
s/p 2 units PRBC transfusion, cont to monitor Hgb, Hgb improved to 9.5 today
Check CBC in 5 days with results to PCP
Noted EGD and C scope from Feb 2024 were unrevealing
# Possible mild acute HFrEF exacerbation
TTE 07/26/24 with EF 30-35%, moderate , mild MR
Cont PHP MYSQL WEB DEVELOPER Coreg
patient with swelling in legs POA, fluid overload may be contributing to symptoms, s/p Lasix 40mg IV x 1 with transfusion,
cont PHP MYSQL WEB DEVELOPER Lasix 20 mg daily
# CKD stage 4
SCr 2.5 on admission, today at 1.9, this is likely new baseline
Check BMP in 5 days with results to PCP
Recc to stop metformin going forward.
# CAD s/p recent PCI x3 (mid ramus lesion, ostial/proximal ramus, ostial/proximal circumflex lesion) 08/18/24
with no e/o active bleeding, continue PHP MYSQL WEB DEVELOPER Asa/Plavix given recent stent
PHP MYSQL WEB DEVELOPER Coreg
# Essential HTN
PHP MYSQL WEB DEVELOPER Coreg,
Per pt, previous Losartan was stopped
# HLD
PHP MYSQL WEB DEVELOPER Crestor and Zetia
# IDDM
Recc to stop metformin going forward.
cont PHP MYSQL WEB DEVELOPER Lantus 18 units HS
ISS coverage
DVT PPx SCD
FULL CODE
DW RN
Anticipated Discharge: Today
Subjective/Interval History
-
Date of Service: September 17, 2024
Objective Data
-
Labs:
Laboratory Results
09/17/24
07:23
WBC 6.1
Hgb 9.5 L D
Hct 28.2 L
Plt Count 183
Sodium 136
Potassium 4.2
Chloride 107
Carbon Dioxide 20 L
BUN 50 H
Creatinine 1.9 H
Glucose 100 H
Calcium 9.3
Vital Signs:
Vital Signs
Temp Pulse Resp BP Pulse Ox
36.5 C 62 18 131/62 98
09/17/24 07:26 09/17/24 08:47 09/17/24 07:26 09/17/24 08:47 09/17/24 07:26
I&O
09/16/24 09/17/24 09/18/24
06:59 06:59 06:59
Intake Total 980 / 980 1390 / 1390
Balance 980 / 980 1390 / 1390
Review of Systems
-
History Source: Patient
All other systems: Reviewed and negative
Physical Exam
-
General: Well Developed, Well Nourished, No Apparent Distress, Comfortable, Conversant (speak in full sentences) and Obese; Negative Respiratory Distress
HEENT: Normocephalic, Atraumatic, Nose Appears Normal and Ears Appear Normal; Negative Oxygen
Respiratory: Clear to Auscultation and Non Labored Respirations; Negative Accessory Resp Muscle Use
Cardiac: Regular Rhythm, S1/S2 and Murmur
GI: Soft, Nontender, Nondistended and Normal Bowel Sounds
Skin: Warm and Dry
Neuro: Awake, Alert, Oriented and AO x 3
Psych: Calm and Intact Judgement/Insight
Data Reviewed
-
Labs: Labs Reviewed by me
[2024-09-17 11:16] VITALS: BP 111/48
--- NOTE | 2024-09-17 11:34 | CM ---
MD entered order for discharge.Spoke with pt he agrees with discharge today .
Offered VN he declined need.
His Mickie will drive him home.
PLAn Home no needs
--- NOTE | 2024-09-17 14:45 | W.DCSUMMARY ---
Discharge Summary
Discharge Data
Date of Admission: 09/15/24
Date of Discharge: 09/17/24
-
Pending Results: No
Hospital Course
Principal Diagnosis:
Acute on Chronic Anemia
Symptomatic anemia with shortness of breath
Possible mild acute HFrEF exacerbation
Chronic Diagnoses:�
CKD stage 4 (SCr at 1.9 on the day of discharge)
Anemia of chronic disease
CAD s/p recent PCI x3 on 08/18/24
Essential hypertension
HLD on Crestor and Zetia
IDDM
Consultations:�
None
Procedures:�
None
Clinical course:�
This is a 84 year old man with past medical history as stated above, who presented with shortness of breath with exertion.
He was sent to the ER from Nephrology clinic due to outpatient Hg noted to be at 7.4.
Problem 1:
Acute on chronic anemia with possible symptomatic anemia with shortness of breath.
His recent iron studies from 09/08 was unrevealing.
He received 2 units PRBC transfusion this admission and his hemoglobin improved from 7.4 to 9.5 on the day of discharge.
He was continued with his prior to admission aspirin and Plavix due to recent cardiac stent.
Of note, his EGD and C scope from Feb 2024 were noted, and they were unrevealing.
Problem 2:
Possible mild acute HFrEF exacerbation.
He received one-time dose IV Lasix 40 mg for mild pedal edema.
Subsequent to that, he was continued with his home dose Lasix 20 mg daily.
As for the rest of his medical problems, they were stable during his hospital stay.
Discharge Plan
-
Patient Disposition: Home (Routine Discharge)
Discharge Diagnosis/Procedures: # Acute on Chronic Anemia/ anemia of Chronic disease ;
# Symptomatic anemia with shortness of breath;
# status post 2 units pRBC transfusion (Hgb at 9.5 on day of discharge)
# CKD stage 3 to 4 (Creatinine at 1.9 on day of discharge)
Condition: Fair
Diet: As tolerated, Low Fat, Low Cholesterol and Low Sodium
Activity: As tolerated
Driving Restrictions: As prior to admission
Blood Work: CBC and BMP in 5 days, results to PCP
Referrals:
Wyatt Boyd DO [Family Provider, Internal Medicine] - in less than 1 week
Additional Discharge Medication Instructions: Hold metformin and losartan until further directed by your shader and toner (in setting of CKD).
Take protonix for gastric protection while on ASA and plavix
Prescriptions:
New
pantoprazole [Protonix] [address] for susp in packet
40 mg PO DAILY Qty: 30 0RF
Continued
rosuvastatin 40 MG tablet
40 mg PO QPM
ferrous sulfate 325 mg (65 mg iron) Tablet
325 mg PO QPM
ezetimibe 10 mg Tablet
10 mg PO DAILY
tadalafil 5 mg Tablet
5 mg PO QPM
tadalafil [Cialis] 20 mg Tablet
20 mg PO DAILYPRN PRN (Reason: ED)
multivitamin Tablet
1 tab PO DAILY
omega 4-knz-aqf-fish oil [Fish Oil] 1,000 mg (120 mg-180 mg) Capsule
1 cap PO DAILY
docusate sodium [Colace] 100 mg capsule
100 mg PO HSPRN PRN (Reason: constipation)
zinc sulfate 50 mg zinc (220 mg) Tablet
50 mg PO DAILY
clopidogrel 75 mg Tablet
75 mg PO DAILY Qty: 30 0RF
carvedilol 12.5 mg Tablet
6.25 mg PO BID
cyanocobalamin (vitamin B-12) 1,000 mcg Tablet
1,000 mcg PO DAILY
aspirin 81 mg Tablet,Delayed Release (Dr/Ec)
81 mg PO DAILY
acetaminophen [Tylenol Extra Strength] 500 mg Tablet
500 mg PO TIDPRN PRN (Reason: mild pain)
furosemide 20 mg Tablet
20 mg PO DAILY
fluticasone propionate 50 mcg/actuation [place],Suspension
1 spray INTRANASAL HSPRN PRN (Reason: congestion)
Visbiome 112.5 billion cell Capsule
1 cap PO DAILY
insulin glargine [Lantus Solostar U-100 Insulin] 100 unit/mL (3 mL) insulin pen
18 unit SC HS
cholecalciferol (vitamin D3) 50 mcg (2,000 unit) Capsule
50 mcg PO DAILY
vitamin E (dl, acetate) 180 mg (400 unit) Capsule
180 mg PO DAILY
dapagliflozin propanediol [Farxiga] 10 mg Tablet
10 mg PO DAILY
Held
metformin 1,000 MG tablet
1,000 mg PO BID
Hold Instructions: Resume on 09/22/24. until further directed by your shader and toner/flaker tender
losartan 25 mg Tablet
25 mg PO DAILY Qty: 30 0RF
Hold Instructions: Resume on 09/22/24. until further directed by your shader and toner
Rx Instructions:
currently on hold per pt.
Discharge Orders:
Discharge Patient (As Directed); Ordered 09/17/24
Ordered By: Alisson Ahumada
Discharge Date and Time
Discharge Date/Time: 09/17/24 11:56
Print Language: AMHARIC
== END 2024-09-17 11:56 | disposition home or self-care (01) ==
LOC: 4 EAST ACU 18:31
PROVIDERS: Emergency Medicine; Nurse Practitioner Family; ADMITTING PHYSICIAN Student in an Organized Health Care Education/Training Program; ATTENDING PHYSICIAN Internal Medicine; EMERGENCY PHYSICIAN Student in an Organized Health Care Education/Training Program; FAMILY PHYSICIAN Internal Medicine
DX: I13.0 Hypertensive heart and chronic kidney disease with heart failure and stage 1 through stage 4 chronic kidney disease, or unspecified chronic kidney disease (principal); N18.4 Chronic kidney disease, stage 4 (severe); D63.1 Anemia in chronic kidney disease; I25.10 Atherosclerotic heart disease of native coronary artery without angina pectoris; I65.29 Occlusion and stenosis of unspecified carotid artery; I50.23 Acute on chronic systolic (congestive) heart failure; E11.22 Type 2 diabetes mellitus with diabetic chronic kidney disease; C61 Malignant neoplasm of prostate; Z92.3 Personal history of irradiation; G47.33 Obstructive sleep apnea (adult) (pediatric); E66.9 Obesity, unspecified; Z68.34 Body mass index [BMI] 34.0-34.9, adult; I25.2 Old myocardial infarction; I45.2 Bifascicular block; Z79.899 Other long term (current) drug therapy; Z79.82 Long term (current) use of aspirin; Z79.84 Long term (current) use of oral hypoglycemic drugs; Z96.652 Presence of left artificial knee joint
CPT/HCPCS: 36430; 80048; 80053; 82728; 82962; 83735; 85025; 85027; 85610; 85730; 86850; 86900; 86901; 86920; 86922; 93005; 99285; G0378; P9016

== ENCOUNTER → 2024-09-22 08:41 | Outpatient (REF) | payer MEDICARE, SELFPAY ==
[2024-09-22 09:32] LABS: Hematocrit 27.9 % (39.0-52.0); Hemoglobin 9.2 g/dL (13.0-18.0); Mean Corp Hgb Conc. 33.0 g/dL (33.0-37.0); Mean Corpuscular Volume 94.6 fL (80.0-94.0); Nucleated Red Blood Cells % 0 % (-); Platelet Count 206 10^3/uL (130-400); Red Cell Dist. Width 16.0 % (11.5-14.5)
[2024-09-22 10:02] LABS: Blood Urea Nitrogen 41 mg/dl (9-20); Calcium 8.9 mg/dl (8.4-10.2); Carbon Dioxide 24 mmol/L (22-30); Chloride 107 mmol/L (98-107); Glucose 138 mg/dl (70-99); Potassium 4.7 mmol/L (3.5-5.1); Sodium 137 mmol/L (135-145); eGFR 30.66
== END ==
LOC: REG 08:41
PROVIDERS: ATTENDING PHYSICIAN Internal Medicine; FAMILY PHYSICIAN Internal Medicine; OTHER PHYSICIAN Internal Medicine Cardiovascular Disease; OTHER PHYSICIAN Internal Medicine Endocrinology, Diabetes & Metabolism; REFERRING PHYSICIAN Specialist
DX: D64.9 Anemia, unspecified (principal)
CPT/HCPCS: 36415; 80048; 85025

== ENCOUNTER 2024-09-22 13:43 | Outpatient (RCR) | payer MEDICARE, SELFPAY ==
[2024-09-06 11:22] LABS: Glucose - Point of Care 198 mg/dl (70-99)
[2024-09-06 11:56] LABS: Glucose - Point of Care 160 mg/dl (70-99)
[2024-09-20 13:26] LABS: Glucose - Point of Care 173 mg/dl (70-99)
[2024-09-20 14:17] LABS: Glucose - Point of Care 136 mg/dl (70-99)
[2024-09-22 13:12] LABS: Glucose - Point of Care 123 mg/dl (70-99)
[2024-09-22 14:01] LABS: Glucose - Point of Care 138 mg/dl (70-99)
== END 2024-09-22 23:59 | disposition home or self-care (01) ==
LOC: CRHB 13:43
PROVIDERS: ATTENDING PHYSICIAN Internal Medicine Cardiovascular Disease; FAMILY PHYSICIAN Internal Medicine
DX: Z95.5 Presence of coronary angioplasty implant and graft (principal)
CPT/HCPCS: 82962; G0422; G0423

== ENCOUNTER → 2024-10-13 09:42 | Outpatient (REF) | payer MEDICARE, SELFPAY ==
[2024-10-13 10:17] LABS: Hematocrit 28.5 % (39.0-52.0); Hemoglobin 9.3 g/dL (13.0-18.0); Mean Corp Hgb Conc. 32.6 g/dL (33.0-37.0); Mean Corpuscular Volume 95.3 fL (80.0-94.0); Nucleated Red Blood Cells % 0 % (-); Platelet Count 191 10^3/uL (130-400); Red Cell Dist. Width 15.8 % (11.5-14.5)
[2024-10-13 11:07] LABS: Blood Urea Nitrogen 43 mg/dl (9-20); Calcium 9.4 mg/dl (8.4-10.2); Carbon Dioxide 23 mmol/L (22-30); Chloride 109 mmol/L (98-107); Glucose 136 mg/dl (70-99); Potassium 4.6 mmol/L (3.5-5.1); Sodium 138 mmol/L (135-145); eGFR 32.51
== END ==
LOC: REG 09:42
PROVIDERS: ATTENDING PHYSICIAN Specialist; FAMILY PHYSICIAN Internal Medicine; OTHER PHYSICIAN Internal Medicine Cardiovascular Disease; REFERRING PHYSICIAN Internal Medicine Endocrinology, Diabetes & Metabolism
DX: N17.9 Acute kidney failure, unspecified (principal)
CPT/HCPCS: 36415; 80048; 85025

== ENCOUNTER 2024-10-22 14:05 | Outpatient (RCR) | payer MEDICARE, SELFPAY ==
[2024-09-24 13:11] LABS: Glucose - Point of Care 225 mg/dl (70-99)
[2024-09-24 14:09] LABS: Glucose - Point of Care 120 mg/dl (70-99)
[2024-09-27 13:11] LABS: Glucose - Point of Care 188 mg/dl (70-99)
[2024-09-27 14:08] LABS: Glucose - Point of Care 131 mg/dl (70-99)
[2024-09-29 13:11] LABS: Glucose - Point of Care 190 mg/dl (70-99)
[2024-09-29 14:09] LABS: Glucose - Point of Care 132 mg/dl (70-99)
[2024-10-13 13:01] LABS: Glucose - Point of Care 190 mg/dl (70-99)
[2024-10-13 14:14] LABS: Glucose - Point of Care 146 mg/dl (70-99)
== END 2024-10-22 23:59 | disposition home or self-care (01) ==
LOC: CRHB 14:05
PROVIDERS: ATTENDING PHYSICIAN Internal Medicine Cardiovascular Disease; FAMILY PHYSICIAN Internal Medicine
DX: Z95.5 Presence of coronary angioplasty implant and graft (principal)
CPT/HCPCS: 82962; G0422; G0423

== ENCOUNTER 2024-11-22 14:09 | Outpatient (RCR) | payer MEDICARE, SELFPAY | END 2024-11-22 23:59 | disposition home or self-care (01) | LOC: CRHB 14:09 | PROVIDERS: ATTENDING PHYSICIAN Internal Medicine Cardiovascular Disease; FAMILY PHYSICIAN Internal Medicine | DX: I25.10 Atherosclerotic heart disease of native coronary artery without angina pectoris (principal); Z95.5 Presence of coronary angioplasty implant and graft; I25.2 Old myocardial infarction | CPT/HCPCS: G0422; G0423 ==

== ENCOUNTER → 2024-11-24 09:17 | Outpatient (REF) | payer MEDICARE, SELFPAY ==
[2024-11-24 10:36] LABS: Hematocrit 31.3 % (39.0-52.0); Hemoglobin 10.3 g/dL (13.0-18.0); Mean Corp Hgb Conc. 32.9 g/dL (33.0-37.0); Mean Corpuscular Volume 97.8 fL (80.0-94.0); Nucleated Red Blood Cells % 0 % (-); Platelet Count 201 10^3/uL (130-400); Red Cell Dist. Width 13.3 % (11.5-14.5)
[2024-11-24 10:49] LABS: Microalb - Urine Creatinine 105.300 mg/dl
[2024-11-24 10:52] LABS: Microalbumin, Random Urine 11.3 mg/dl (0.6-1.7)
[2024-11-24 11:02] LABS: ALT (SGPT) 34 U/L (0-50); AST (SGOT) 33 U/L (17-59); Albumin 4.0 g/dl (3.5-5.0); Alkaline Phosphatase 47 U/L (38-126); Blood Urea Nitrogen 41 mg/dl (9-20); Calcium 9.1 mg/dl (8.4-10.2); Carbon Dioxide 27 mmol/L (22-30); Chloride 105 mmol/L (98-107); Glucose 156 mg/dl (70-99); HDL Cholesterol 42 mg/dl; Iron 73 ug/dl (49-181); LDL Cholesterol, Calculated 54 mg/dl; Potassium 4.6 mmol/L (3.5-5.1); Sodium 137 mmol/L (135-145); Total Protein 6.2 g/dl (6.3-8.2); Very Low Density Lipoprotein 20 mg/dl (0-30); eGFR 28.99
[2024-11-24 11:12] LABS: Total Iron Binding Capacity 305 ug/dl (261-462)
[2024-11-24 11:36] LABS: Ferritin 120.0 ng/ml (17.9-464.0)
[2024-11-24 12:26] LABS: Glycohemoglobin (HgbA1c) 6.8 % (4.0-5.6)
== END ==
LOC: REG 09:17
PROVIDERS: ATTENDING PHYSICIAN Internal Medicine Endocrinology, Diabetes & Metabolism; FAMILY PHYSICIAN Internal Medicine; REFERRING PHYSICIAN Specialist
DX: E11.21 Type 2 diabetes mellitus with diabetic nephropathy (principal); E78.2 Mixed hyperlipidemia; D64.9 Anemia, unspecified; I10 Essential (primary) hypertension; E11.9 Type 2 diabetes mellitus without complications
CPT/HCPCS: 36415; 80053; 80061; 82043; 82570; 82728; 83036; 83540; 83550; 85025

== ENCOUNTER 2024-12-17 14:47 | Outpatient (RCR) | payer MEDICARE, SELFPAY | END 2024-12-17 14:54 | disposition home or self-care (01) | LOC: CRHB 14:47 | PROVIDERS: ATTENDING PHYSICIAN Internal Medicine Cardiovascular Disease; FAMILY PHYSICIAN Internal Medicine | DX: I25.10 Atherosclerotic heart disease of native coronary artery without angina pectoris (principal); I25.2 Old myocardial infarction; Z95.5 Presence of coronary angioplasty implant and graft | CPT/HCPCS: G0422; G0423 ==

== ENCOUNTER → 2025-01-28 13:43 | Outpatient (REF) | payer MEDICARE, SELFPAY ==
--- NOTE | 2025-01-28 15:30 | CARDSERVLU ---
Echocardiogram with Lumason completed after protocol screening completed. Allergies verified.
Patent IV site: __Rt FA___
IV site flushed with 0.9% NaCl pre and post administration.
Diluted bolus method utilized to enhance visualization of ventricular thompson.
Total volume given: __4.0__ mL
Patient tolerated all procedures well without complications.
== END ==
LOC: RCS 13:43
PROVIDERS: ATTENDING PHYSICIAN Internal Medicine Cardiovascular Disease; FAMILY PHYSICIAN Internal Medicine
DX: I50.22 Chronic systolic (congestive) heart failure (principal); I25.10 Atherosclerotic heart disease of native coronary artery without angina pectoris; E66.01 Morbid (severe) obesity due to excess calories
CPT/HCPCS: 93306; Q9950